=== PATIENT | male | born 1950 | race Caucasian/White ===

== ENCOUNTER → 2016-10-01 | Outpatient (REF) | payer MEDICARE ==
[~2016-10-01] MED LIST: AMLO5TAB2 PO; OMEP40CA2 PO; PARO-39 PO; PRAV40TA2 PO; PROS5TAB PO
== END ==
LOC: M LAB REF 11:48
DX: R74.8 Abnormal levels of other serum enzymes (principal); Z79.899 Other long term (current) drug therapy

== ENCOUNTER → 2016-10-02 | Outpatient (REF) | payer MEDICARE ==
[2016-10-02 13:53] LABS: FERRITIN 485 NG/ML (26-388); PERCENT SATURATION 45.5 % (19.7-37.4); TOTAL IRON BINDING CAPACITY 321 UG/DL (250-450); TOTAL PROTEIN 7.8 GM/DL (6.4-8.2)
[2016-10-05 12:57] LABS: ALBUMIN % 53.9 % (55.8-66.1)
[2016-10-05 12:58] LABS: GAMMA GLOBULIN % 22.8 % (11.1-18.8)
== END ==
LOC: M LAB REF 13:12
DX: R74.8 Abnormal levels of other serum enzymes (principal)

== ENCOUNTER → 2016-10-06 | Outpatient (REF) | payer MEDICARE | LOC: M LAB REF 16:48 | DX: R74.8 Abnormal levels of other serum enzymes (principal) ==

== ENCOUNTER → 2016-10-14 | Day surgery (SDC) | payer MEDICARE ==
--- NOTE | 2016-10-06 01:53 | CR ---
DATE OF CONSULTATION: 10/01/2016 REFERRING PHYSICIAN: Dr. Adrianna Leiva Marifer, a 66-year-old white male, scheduled for cataract surgery. I have been asked to evaluate him medically. He did not have any preoperative testing or EKG. Historically, he has mildly low platelet counts of about 100,000. He has had no bleeding disorders. There is no history of symptoms of coronary artery disease. He has no symptoms of known obstructive sleep apnea (AVE) or venous thromboembolism (VTE). His exercise tolerance is fair. He has gained some weight over the years. He does function at a level of greater than 4 metabolic equivalents of task (METs) without any symptoms. MEDICATIONS: He was begun on Norvasc 5 mg a day today. This was for elevated blood pressure. I believe he might be drinking again, which might be driving his blood pressure up. His other medications are: - Proscar 5 mg a day - pravastatin 40 mg a day - Paxil 20 mg a day - Prilosec 20 mg a day - Norvasc added today ALLERGIES: He has had an intolerance to a medication in the past for his blood pressure. The only medication I can see that he has been on in the past has been lisinopril with hydrochlorothiazide. He is vague about the symptoms associated with same. PAST MEDICAL HISTORY: 1. History of alcohol abuse in the past. 2. BPH. 3. Generalized anxiety disorder (VICKY). 4. Gastroesophageal reflux disease (GERD). 5. Hyperlipidemia. 6. Colonic polyps. 7. History of previous Alexandre's esophagitis. 8. He has had elevated liver function tests, but these have been historically recently normal until his last visit here. I am rechecking those, but this is not going to preclude surgery. With his history of elevated liver tests, I am doing a hepatitis C screen today. FAMILY HISTORY: Irrelevant. SOCIAL HISTORY: Alcohol issues, as above. We did not quantify it today. CARDIOPULMONARY REVIEW OF SYSTEMS: Is negative. PHYSICAL EXAM: Blood pressure is 160/85. GENERAL APPEARANCE: Moderately overweight. HEENT: Was noteworthy for the absence of carotid bruits. No jugular venous distention (JVD). HEART: Was regular. No murmurs. CHEST: Is clear. ABDOMEN: Mild central obesity. No hepatosplenomegaly (HSM). EXTREMITIES: No edema. No petechiae. IMPRESSION/PLAN: 1. Hypertension. Beginning Norvasc today. 2. Gastroesophageal reflux disease/history of Alexandre's. He is due to followup with Dr. Castro. He is supposed to give him a call. 3. Colonic polyps with tubular adenoma. Follows with Dr. Castro. 4. BPH. 5. Hyperlipidemia. 6. Generalized anxiety disorder. This is not as pervasive since he is retired. He used to work at the [employer]. He is medically optimized for the scheduled procedure.
[~2016-10-14] VITALS: Ht 180.3 cm; Wt 90.7 kg
[~2016-10-14] MED LIST changes: +ACETAMINOPHEN 325 MG TAB PO PRN; +AcetaZOLAMIDE 500 MG ER CAP PO ONE; +BSS with VANC/TOB/EPI for EYE CASES IR ONE; +CYCLOPENTOLATE 2% OPHTH SOLN OS ONE; +HEALON DUET (HEALON 10MG/ML 0.55ML & HEALON ENDOCOAT 30MG/ML 0.85ML) As Ordered ONE; +HEALON DUET (HEALON 10MG/ML 0.55ML & HEALON ENDOCOAT 30MG/ML 0.85ML) XX ONE; +KETOROLAC 0.5% OPHTH SOLN OS ONE; +LIDOCAINE 0.75%/EPINEPHRINE 0.025% IN BSS 1ML SYR INTRACAMERAL (OR ONLY) ICAM ONE; +LIDOCAINE 1% SDV 5 ML VIAL As Ordered ONE; +LIDOCAINE 1% SDV 5 ML VIAL XX ONE; +LIDOCAINE 1% SDV INJ 30 ML VIAL XX ONE; +LIDOCAINE 4% INJ 5 ML AMP OU ONE; +MIDAZOLAM INJ 2 MG/2 ML VIAL (J2250) As Ordered ONE; +MOXIFLOXACIN IN BSS 0.25MG/0.25ML INTRACAMERAL INJ (OR EYE ONLY)(J2280) As Ordered ONE; +MOXIFLOXACIN IN BSS 0.25MG/0.25ML INTRACAMERAL INJ (OR EYE ONLY)(J2280) ICAM ONE; +OFLOXACIN 0.3 % (OCUFLOX) OPTH SOL 5ML OS ONE; +PHENYLEPHRINE 2.5% OPHTH SOL 2ML OS ONE; +POVIDONE-IODINE 5% OPHTH PREP SOL 30ML As Ordered ONE; +PROPARACAINE 0.5% OPHTH SOL 15ML OS PRN; +TRIAMCINOLONE PRES FR 40 MG/ML 1ML(TRIESENCE)(OR EYE ONLY)(J3300 PER 1MG) As Ordered ONE; +TRIAMCINOLONE PRES FR 40 MG/ML 1ML(TRIESENCE)(OR EYE ONLY)(J3300 PER 1MG) IO ONE; +TRIMETHOBENZAMIDE 300 MG CAP PO PRN; +TROPICAMIDE 1% OPHTH SOLN 2 ML OS ONE; +fentaNYL 100 MCG/2 ML INJECTION (J3010) As Ordered ONE
--- NOTE | 2016-10-14 10:37 | RO ---
DATE OF PROCEDURE: 10/14/2016 PREPROCEDURE DIAGNOSIS: Cataract of left eye. POSTPROCEDURE DIAGNOSIS: Cataract of left eye. PROCEDURE: Femtosecond laser and phacoemulsification of the intraocular lens with lens implantation left eye. Intraocular lens power used was PCB00, 11.5 diopter. SURGEON: Deion Rodas MD AIRCRAFT SHEET METAL MECHANIC: None. ANESTHESIA: Local IV standby. FINDINGS: Cataract of left eye. COMPLICATIONS: None. DESCRIPTION OF PROCEDURE: The patient was brought to the operating room and laid in supine position. A lid speculum was placed, and patient was brought under the femtosecond laser. After the satisfactory placement of the patient interface, primary incision, secondary incision, and arcuate incisions with lens fragmentation was done without any complication per plan. The patients interface was then removed and lid speculum removed. Patient was placed under the microscope. The eye was prepped and draped in a sterile fashion for ophthalmic surgery. Lid speculum was placed. The secondary incision was opened, and EndoCoat was injected into the anterior chamber. The temporal clear corneal incision was then opened and capsulorrhexis removed, followed by hydrodissection. This was followed by phacoemulsification of the lens within the capsular bag. Cortical material was then aspirated, and Healon was injected into the capsular bag. Intraocular lens was then placed. Excess Healon was aspirated. Wound was hydrated. The lid speculum was removed, and patient was returned to the recovery room in stable condition.
[2016-10-14 11:00] VITALS: BP 177/107
== END | disposition home or self-care (01) ==
LOC: M SDC 07:16
PROVIDERS: ATTEND Ophthalmology
DX: H26.9 Unspecified cataract (principal); F10.21 Alcohol dependence, in remission; N40.0 Benign prostatic hyperplasia without lower urinary tract symptoms; F41.9 Anxiety disorder, unspecified; L21.9 Seborrheic dermatitis, unspecified; E78.5 Hyperlipidemia, unspecified; K63.5 Polyp of colon; R94.5 Abnormal results of liver function studies; I10 Essential (primary) hypertension; Z87.19 Personal history of other diseases of the digestive system; Z79.899 Other long term (current) drug therapy
CPT/HCPCS: 66984; J2250; J2280; J3010; J3300; V2632

== ENCOUNTER → 2016-12-28 | Outpatient (CLI) | payer MEDICARE ==
[~2016-12-28] VITALS: Ht 180.3 cm; Wt 90.7 kg
[~2016-12-28] MED LIST changes: -ACETAMINOPHEN 325 MG TAB PO PRN; -AcetaZOLAMIDE 500 MG ER CAP PO ONE; -BSS with VANC/TOB/EPI for EYE CASES IR ONE; -CYCLOPENTOLATE 2% OPHTH SOLN OS ONE; -HEALON DUET (HEALON 10MG/ML 0.55ML & HEALON ENDOCOAT 30MG/ML 0.85ML) As Ordered ONE; -HEALON DUET (HEALON 10MG/ML 0.55ML & HEALON ENDOCOAT 30MG/ML 0.85ML) XX ONE; -KETOROLAC 0.5% OPHTH SOLN OS ONE; -LIDOCAINE 0.75%/EPINEPHRINE 0.025% IN BSS 1ML SYR INTRACAMERAL (OR ONLY) ICAM ONE; -LIDOCAINE 1% SDV 5 ML VIAL As Ordered ONE; -LIDOCAINE 1% SDV 5 ML VIAL XX ONE; -LIDOCAINE 1% SDV INJ 30 ML VIAL XX ONE; -LIDOCAINE 4% INJ 5 ML AMP OU ONE; -MIDAZOLAM INJ 2 MG/2 ML VIAL (J2250) As Ordered ONE; -MOXIFLOXACIN IN BSS 0.25MG/0.25ML INTRACAMERAL INJ (OR EYE ONLY)(J2280) As Ordered ONE; -MOXIFLOXACIN IN BSS 0.25MG/0.25ML INTRACAMERAL INJ (OR EYE ONLY)(J2280) ICAM ONE; +MULT1CHW39 PO; +NS 1,000 ML IV SCH; -OFLOXACIN 0.3 % (OCUFLOX) OPTH SOL 5ML OS ONE; -PHENYLEPHRINE 2.5% OPHTH SOL 2ML OS ONE; -POVIDONE-IODINE 5% OPHTH PREP SOL 30ML As Ordered ONE; -PROPARACAINE 0.5% OPHTH SOL 15ML OS PRN; +PROPOFOL 200 MG/20 ML VIAL As Ordered ONE; -TRIAMCINOLONE PRES FR 40 MG/ML 1ML(TRIESENCE)(OR EYE ONLY)(J3300 PER 1MG) As Ordered ONE; -TRIAMCINOLONE PRES FR 40 MG/ML 1ML(TRIESENCE)(OR EYE ONLY)(J3300 PER 1MG) IO ONE; -TRIMETHOBENZAMIDE 300 MG CAP PO PRN; -TROPICAMIDE 1% OPHTH SOLN 2 ML OS ONE; -fentaNYL 100 MCG/2 ML INJECTION (J3010) As Ordered ONE
--- NOTE | 2016-12-28 12:41 | ROOR ---
Patient Name: Cali Caicedo Procedure Date: 12/28/2016 12:20 PM Date of : 1950 Age: 66 Room: [facility] Gender: Male Note Status: Finalized Procedure: Colonoscopy to Cecum + Cold Snare Polypectomy + Hemocliop Indications: Screening in patient at increased risk: Colorectal cancer in mother 60 or older, High risk colon cancer surveillance: Personal history of colonic polyps Providers: Jose Castro MD Referring MD: Devon Jacques MD Requesting Provider: Medicines: Monitored Anesthesia Care Complications: No immediate complications. Procedure: Pre-Anesthesia Assessment: - The heart rate, respiratory rate, oxygen saturations, blood pressure, adequacy of pulmonary ventilation, and response to care were monitored throughout the procedure. The Colonoscope was introduced through the anus and advanced to the cecum, identified by appendiceal orifice and ileocecal valve. The colonoscopy was performed without difficulty. The patient tolerated the procedure well. The quality of the bowel preparation was fair. Findings: The perianal and digital rectal examinations were normal. Non-bleeding internal hemorrhoids were found during retroflexion. The hemorrhoids were small and Grade I (internal hemorrhoids that do not prolapse). Scattered small-mouthed diverticula were found in the recto-sigmoid colon, sigmoid colon and descending colon. A small polyp was found in the mid ascending colon. The polyp was sessile. The polyp was removed with a cold snare. Resection and retrieval were complete. To prevent bleeding after the polypectomy, one hemostatic clip was successfully placed (MR conditional). There was no bleeding at the end of the procedure. The exam was otherwise without abnormality on direct and retroflexion views. Impression: - Preparation of the colon was fair. - Non-bleeding internal hemorrhoids. - Diverticulosis in the recto-sigmoid colon, in the sigmoid colon and in the descending colon. - One small polyp in the mid ascending colon, removed with a cold snare. Resected and retrieved. Clip (MR conditional) was placed. - The examination was otherwise normal on direct and retroflexion views. - The exam was otherwise normal to the cecum. Recommendation: - Patient has a contact number available for emergencies. The signs and symptoms of potential delayed complications were discussed with the patient. Return to normal activities tomorrow. Written discharge instructions were provided to the patient. - High fiber diet. - Discharge patient to home. - Continue present medications. - Await pathology results. - Repeat colonoscopy for surveillance based on pathology results. - Check Portal Online for Path Results.([email or web address] - The findings and recommendations were discussed with the patient's family. Jose Castro MD Jose Castro MD 12/28/2016 12:41:30 PM This report has been signed electronically. Number of Addenda: 0 Note Initiated On: 12/28/2016 12:20 PM Estimated Blood Loss: Estimated blood loss: none.
[2016-12-28 13:05] VITALS: BP 149/88
== END ==
LOC: M OPP 11:45
PROVIDERS: ATTEND Internal Medicine Gastroenterology
DX: Z12.31 Encounter for screening mammogram for malignant neoplasm of breast (principal); Z80.0 Family history of malignant neoplasm of digestive organs; D12.2 Benign neoplasm of ascending colon; K64.0 First degree hemorrhoids; K57.30 Diverticulosis of large intestine without perforation or abscess without bleeding; I10 Essential (primary) hypertension; E78.00 Pure hypercholesterolemia, unspecified; R12 Heartburn; F33.9 Major depressive disorder, recurrent, unspecified; Z79.899 Other long term (current) drug therapy; Z87.891 Personal history of nicotine dependence

== ENCOUNTER → 2017-12-30 | Outpatient (REF) | payer MEDICARE ==
[2017-12-30 13:28] LABS: AMMONIA 33 uMOL/L (<32)
[2017-12-30 13:39] LABS: TOTAL PROTEIN 9.5 GM/DL (6.4-8.2)
[2017-12-30 13:39] LABS: GAMMA GLUTAMYLTRANSPEPTIDASE 365 U/L (15-85)
[2018-01-01 00:07] LABS: ANTI-MITOCHONDRIAL ANTIBODY 5.1 Units (0.0-20.0)
[2018-01-05 09:21] LABS: ALBUMIN 4.09 GM/DL (3.29-5.55); ALBUMIN % 43.1 % (55.8-66.1); ALPHA-1-GLOBULINS 0.38 GM/DL (0.17-0.41); ALPHA-2-GLOBULINS 0.66 GM/DL (0.42-0.99); ALPHA-2-GLOBULINS % 6.9 % (7.1-11.8); BETA-1-GLOBULINS 0.58 GM/DL (0.28-0.60); BETA-1-GLOBULINS % 6.1 % (4.7-7.2); BETA-2-GLOBULINS 0.57 GM/DL (0.19-0.55); GAMMA GLOBULIN % 33.9 % (11.1-18.8)
[2018-01-05 09:22] LABS: GAMMA GLOBULINS 3.22 GM/DL (0.65-1.58)
[2018-01-05 10:10] LABS: IMMUNOTYPING SERUM IGG ABNORMAL (NORMAL); IMMUNOTYPING SERUM KAPPA ABNORMAL (NORMAL)
== END ==
LOC: M LAB REF 12:26
DX: R74.8 Abnormal levels of other serum enzymes (principal); R79.89 Other specified abnormal findings of blood chemistry
CPT/HCPCS: 82140

== ENCOUNTER → 2018-02-10 | Outpatient (REF) | payer MEDICARE ==
[2018-02-10 15:25] LABS: GAMMA GLUTAMYLTRANSPEPTIDASE 185 U/L (15-85)
[2018-02-10 15:25] LABS: FERRITIN 90 NG/ML (26-388)
[2018-02-10 15:27] LABS: AMMONIA 45 uMOL/L (<32)
[2018-02-11 10:47] LABS: ALPHA FETOPROTEIN TUMOR QUANT 5.6 NG/ML (<8.1)
== END ==
LOC: M LAB REF 13:59
DX: R74.8 Abnormal levels of other serum enzymes (principal); K70.31 Alcoholic cirrhosis of liver with ascites
CPT/HCPCS: 82140

== ENCOUNTER → 2018-05-02 | Outpatient (REF) | payer MEDICARE ==
[2018-05-02 19:46] LABS: SLIDE REVIEW Report; SOURCE PERIPHERAL SMEAR
[2018-05-02 20:09] LABS: IMMUNOGLOBULIN G 2550 MG/DL (681-1648); IMMUNOGLOBULIN M 337 MG/DL (40-230); TOTAL PROTEIN 9.2 GM/DL (6.4-8.2)
[2018-05-03 14:39] LABS: ALBUMIN 4.27 GM/DL (3.29-5.55); ALBUMIN % 46.4 % (55.8-66.1); ALPHA-1-GLOBULINS 0.37 GM/DL (0.17-0.41); ALPHA-2-GLOBULINS % 6.5 % (7.1-11.8); BETA-1-GLOBULINS 0.56 GM/DL (0.28-0.60); BETA-1-GLOBULINS % 6.1 % (4.7-7.2); BETA-2-GLOBULINS 0.53 GM/DL (0.19-0.55); BETA-2-GLOBULINS % 5.8 % (3.2-6.5); GAMMA GLOBULIN % 31.2 % (11.1-18.8); GAMMA GLOBULINS 2.87 GM/DL (0.65-1.58)
[2018-05-04 14:25] LABS: FREE KAPPA LIGHT CHAINS SERUM 80.1 mg/L (3.3-19.4); FREE LAMBDA LIGHT CHAINS SERUM 47.7 mg/L (5.7-26.3); KAPPA/LAMBDA RATIO SERUM 1.68 (0.26-1.65)
== END ==
LOC: M LAB REF 18:15
DX: R79.9 Abnormal finding of blood chemistry, unspecified (principal); D69.6 Thrombocytopenia, unspecified; D72.819 Decreased white blood cell count, unspecified; Z87.19 Personal history of other diseases of the digestive system; Z86.79 Personal history of other diseases of the circulatory system
CPT/HCPCS: 84165

== ENCOUNTER → 2018-05-03 | Outpatient (CLI) | payer MEDICARE | LOC: M RAD 10:40 | DX: D47.2 Monoclonal gammopathy (principal) | CPT/HCPCS: 77075 ==

== ENCOUNTER 2018-05-25 12:02 | Day surgery (SDC) | payer MEDICARE ==
[~2018-05-25 12:02] MED LIST changes: -AMLO5TAB2 PO; +LIDOCAINE 2% INJ 100 MG/5 ML SDV (FOR ANES.) As Ordered; -MULT1CHW39 PO; -NS 1,000 ML IV SCH; -OMEP40CA2 PO; -PARO-39 PO; -PRAV40TA2 PO; +PROPOFOL 200 MG/20 ML VIAL As Ordered; -PROPOFOL 200 MG/20 ML VIAL As Ordered ONE; -PROS5TAB PO; +fentaNYL 100 MCG/2 ML INJECTION (J3010) As Ordered
[2018-05-25] MEDS: NS 1,000 ML IV (12:15)
== END 2018-05-25 13:58 | disposition home or self-care (01) ==
LOC: M OPP 12:02
DX: R93.3 Abnormal findings on diagnostic imaging of other parts of digestive tract (principal); D12.2 Benign neoplasm of ascending colon; D12.4 Benign neoplasm of descending colon; D12.5 Benign neoplasm of sigmoid colon; K64.0 First degree hemorrhoids; K57.30 Diverticulosis of large intestine without perforation or abscess without bleeding; K70.31 Alcoholic cirrhosis of liver with ascites; K76.6 Portal hypertension; I85.00 Esophageal varices without bleeding; K31.89 Other diseases of stomach and duodenum; R63.4 Abnormal weight loss; I10 Essential (primary) hypertension; E78.5 Hyperlipidemia, unspecified; K21.9 Gastro-esophageal reflux disease without esophagitis; R12 Heartburn; K22.70 Barrett's esophagus without dysplasia; M19.90 Unspecified osteoarthritis, unspecified site; F32.9 Major depressive disorder, single episode, unspecified; N40.1 Benign prostatic hyperplasia with lower urinary tract symptoms; Z79.899 Other long term (current) drug therapy; Z87.891 Personal history of nicotine dependence; Z80.0 Family history of malignant neoplasm of digestive organs
CPT/HCPCS: 45385

== ENCOUNTER → 2018-06-09 | Outpatient (REF) | payer MEDICARE ==
[2018-06-09 18:01] LABS: AMMONIA 21 uMOL/L (<32)
== END ==
LOC: M LAB REF 16:39
DX: K74.60 Unspecified cirrhosis of liver (principal)
CPT/HCPCS: 82140

== ENCOUNTER → 2018-08-02 | Outpatient (REF) | payer MEDICARE ==
[2018-08-02 12:51] LABS: GAMMA GLUTAMYLTRANSPEPTIDASE 111 U/L (15-85)
[2018-08-02 12:58] LABS: AMMONIA 18 uMOL/L (<32)
== END ==
LOC: M LAB REF 12:01
DX: K74.60 Unspecified cirrhosis of liver (principal); D69.6 Thrombocytopenia, unspecified
CPT/HCPCS: 82140

== ENCOUNTER 2018-08-24 08:30 | Day surgery (SDC) | payer MEDICARE ==
[~2018-08-24] VITALS: Ht 180.3 cm; Wt 82.3 kg
[~2018-08-24 08:30] MED LIST changes: +ACETAMINOPHEN 325 MG TAB PO PRN; +AMLO5TAB4 PO; +BSS with VANC/TOB/EPI for EYE CASES IR ONE; +CYCLOPENTOLATE 2% OPHTH SOLN 2ML BTL OD ONE; +FURO20TA2 PO; +HEALON DUET PRO(HEALON 10MG/ML 0.55ML & HEALON ENDOCOAT 30MG/ML 0.85ML) As Ordered ONE; +LIDOCAINE 1% SDV 5 ML VIAL As Ordered ONE; -LIDOCAINE 2% INJ 100 MG/5 ML SDV (FOR ANES.) As Ordered; +LIDOCAINE 3.5 % 1ML OPHTH TOPICAL GEL OU ONE; +MIDAZOLAM INJ 2 MG/2 ML VIAL (J2250) As Ordered ONE; +MOXIFLOXACIN IN BSS 0.25MG/0.25ML INTRACAMERAL INJ (OR EYE ONLY)(J2280) As Ordered ONE; +MULT1CHW39 PO; +OFLOXACIN 0.3 % (OCUFLOX) OPTH SOL 5ML OD ONE; +OMEP40CA2 PO; +PARO20TA4 PO; +PHENYLEPHRINE 2.5% OPHTH SOL 2ML OD ONE; +PHENYLEPHRINE HCL 10 % OPHTH. SOL 5ML OD PRN; +POVIDONE-IODINE 5% OPHTH PREP SOL 30ML As Ordered ONE; +PRAV40TA2 PO; -PROPOFOL 200 MG/20 ML VIAL As Ordered; +PROS5TAB PO; +TRIAMCINOLONE PRES FR 40 MG/ML 1ML(TRIESENCE)(OR EYE ONLY)(J3300 PER 1MG) As Ordered ONE; +TROPICAMIDE 1% OPHTH SOLN 2ML OD ONE; -fentaNYL 100 MCG/2 ML INJECTION (J3010) As Ordered; +fentaNYL 100 MCG/2 ML INJECTION (J3010) As Ordered ONE
[2018-08-24] MEDS ORDERED: LIDOCAINE 2% W/EPIN INJ 20ML **PRES FREE XX ONE (11:04)
[2018-08-24] MEDS ORDERED: TRIMETHOBENZAMIDE 300 MG CAP PO PRN (11:30)
[2018-08-24] MEDS ORDERED: ONDANSETRON 4MG/2ML VIAL (J2405) IV PRN (11:30)
[2018-08-24] MEDS ORDERED: AcetaZOLAMIDE 500 MG ER CAP PO ONE (11:30)
[2018-08-24 11:35] VITALS: BP 130/68
--- NOTE | 2018-09-20 16:25 | RO ---
DATE OF PROCEDURE: 08/24/2018 PREPROCEDURE DIAGNOSIS: Cataract of right eye. POSTPROCEDURE DIAGNOSIS: Cataract of right eye. PROCEDURE: Femtosecond laser with phacoemulsification and intraocular lens implantation of AU00T0, 11 diopter with the help of the ORA. SURGEON: Deion Rodas MD MEDIA TRAFFIC MANAGER: None. ANESTHESIA: Local IV standby. FINDINGS: Cataract of right eye. COMPLICATIONS: None. DESCRIPTION OF PROCEDURE: The patient was brought to the operating room and laid in supine position. A lid speculum was placed, and patient was brought under the femtosecond laser. After the satisfactory placement of the patient interface, primary incision, secondary incision, and arcuate incisions with lens fragmentation was done without any complication per plan. The patients interface was then removed and lid speculum removed. Patient was placed under the microscope. The eye was prepped and draped in a sterile fashion for ophthalmic surgery. Lid speculum was placed. The secondary incision was opened, and EndoCoat was injected into the anterior chamber. The temporal clear corneal incision was then opened and capsulorrhexis removed, followed by hydrodissection. This was followed by phacoemulsification of the lens within the capsular bag. Cortical material was then aspirated, and Healon was injected into the capsular bag. Intraocular lens was then placed. Excess Healon was aspirated. Wound was hydrated. The lid speculum was removed, and patient was returned to the recovery room in stable condition. ADDENDUM: After the cortical material was aspirated, Healon was placed in the capsular bag and the anterior chamber. Intraocular pressure was checked. Multiple ORA calculations were then reviewed and intraocular power checked.
== END 2018-08-24 11:42 | disposition home or self-care (01) ==
LOC: M SDC 08:30
PROVIDERS: ATTEND Ophthalmology
DX: H25.011 Cortical age-related cataract, right eye (principal); I10 Essential (primary) hypertension; E78.00 Pure hypercholesterolemia, unspecified; K76.0 Fatty (change of) liver, not elsewhere classified; K74.60 Unspecified cirrhosis of liver; K21.9 Gastro-esophageal reflux disease without esophagitis; D69.6 Thrombocytopenia, unspecified; E07.9 Disorder of thyroid, unspecified; K42.9 Umbilical hernia without obstruction or gangrene; M12.9 Arthropathy, unspecified; F41.1 Generalized anxiety disorder; F32.9 Major depressive disorder, single episode, unspecified; N40.0 Benign prostatic hyperplasia without lower urinary tract symptoms; F12.90 Cannabis use, unspecified, uncomplicated; Z79.899 Other long term (current) drug therapy; Z98.42 Cataract extraction status, left eye; Z86.010 Personal history of colon polyps
CPT/HCPCS: 66984; J2250; J2280; J3010; J3300; V2632

== ENCOUNTER → 2018-09-19 | Outpatient (CLI) | payer MEDICARE ==
[~2018-09-19] MED LIST changes: -ACETAMINOPHEN 325 MG TAB PO PRN; -AMLO5TAB4 PO; +AMLO5TAB6 PO; -BSS with VANC/TOB/EPI for EYE CASES IR ONE; -CYCLOPENTOLATE 2% OPHTH SOLN 2ML BTL OD ONE; -HEALON DUET PRO(HEALON 10MG/ML 0.55ML & HEALON ENDOCOAT 30MG/ML 0.85ML) As Ordered ONE; -LIDOCAINE 1% SDV 5 ML VIAL As Ordered ONE; -LIDOCAINE 3.5 % 1ML OPHTH TOPICAL GEL OU ONE; -MIDAZOLAM INJ 2 MG/2 ML VIAL (J2250) As Ordered ONE; -MOXIFLOXACIN IN BSS 0.25MG/0.25ML INTRACAMERAL INJ (OR EYE ONLY)(J2280) As Ordered ONE; -OFLOXACIN 0.3 % (OCUFLOX) OPTH SOL 5ML OD ONE; -PHENYLEPHRINE 2.5% OPHTH SOL 2ML OD ONE; -PHENYLEPHRINE HCL 10 % OPHTH. SOL 5ML OD PRN; -POVIDONE-IODINE 5% OPHTH PREP SOL 30ML As Ordered ONE; -TRIAMCINOLONE PRES FR 40 MG/ML 1ML(TRIESENCE)(OR EYE ONLY)(J3300 PER 1MG) As Ordered ONE; -TROPICAMIDE 1% OPHTH SOLN 2ML OD ONE; -fentaNYL 100 MCG/2 ML INJECTION (J3010) As Ordered ONE
--- NOTE | 2018-09-19 08:24 | REP ---
Complete abdominal sonography: History: Hernia and ascites. Attention to spleen and liver. Comparison CT study February 14, 2018. Findings: Scanning through the right upper quadrant of the abdomen demonstrates multiple mobile shadowing gallstones in the gallbladder. Gallbladder wall is not felt to be thickened. Common bile duct is normal measuring 0.5 cm in greatest diameter. Portal vein is dilated to 18 mm. The liver is somewhat enlarged with craniocaudal dimension of 18.6 cm. No focal liver lesion is seen. There is minimal ascites around the liver in the right abdomen. This is much improved from February 14, 2018 CT study. The spleen is enlarged moderately measuring 16.3 cm in greatest diameter. No focal splenic lesion is seen. There is no evidence of hydronephrosis on either side. Renal cortical echogenicity pattern is normal. Right kidney measures 12.3 x 6.5 x 5.4 cm. Left renal dimensions are 12.4 x 6.7 x 5.0 cm. Impression: Hepatosplenomegaly. Minimal right-sided ascites. Cholelithiasis. Dilated portal vein. Electronically Signed by Kamar Knight MD 09/19/2018 10:55 A
== END ==
LOC: M RAD 06:05
PROVIDERS: ATTEND Internal Medicine Hematology & Oncology
DX: R18.8 Other ascites (principal)

== ENCOUNTER → 2018-12-19 | Outpatient (REF) | payer MEDICARE ==
[~2018-12-19] MED LIST changes: -MULT1CHW39 PO; +MULT200T7 PO
== END ==
LOC: M LAB REF 12:26
PROVIDERS: ATTEND Family Medicine
DX: K74.60 Unspecified cirrhosis of liver (principal); D69.6 Thrombocytopenia, unspecified

== ENCOUNTER 2019-01-10 10:24 | Day surgery (SDC) | payer MEDICARE ==
[~2019-01-10] VITALS: Ht 177.8 cm; Wt 84.8 kg
[~2019-01-10 10:24] MED LIST changes: +LR 1,000 ML IV ONE
[2019-01-10] MEDS ORDERED: ROCURONIUM BROMIDE 50 MG/5 ML VIAL As Ordered ONE (10:43)
[2019-01-10] MEDS ORDERED: fentaNYL 250 MCG/5 ML INJECTION (J3010) As Ordered ONE (10:43)
[2019-01-10] MEDS ORDERED: MIDAZOLAM INJ 2 MG/2 ML VIAL (J2250) As Ordered ONE (10:43)
[2019-01-10] MEDS ORDERED: LIDOCAINE 2% INJ 100 MG/5 ML SDV (FOR ANES.) As Ordered ONE (10:43)
[2019-01-10] MEDS ORDERED: PROPOFOL 200 MG/20 ML VIAL As Ordered ONE (10:43)
[2019-01-10] MEDS ORDERED: BUPIVACAINE HCL 0.25% 30 ML VIAL As Ordered ONE (14:36)
[2019-01-10] MEDS ORDERED: CISATRACURIUM 2MG/ML 5ML VIAL As Ordered ONE ×2 (14:39→16:00)
[2019-01-10] MEDS ORDERED: BUPIVACAINE LIPOSOME/PF 1.3% 20ML VIAL (13.3MG/ML)(EXPAREL)(C9290 PER1MG) As Ordered ONE (16:26)
[2019-01-10] MEDS ORDERED: GLYCOPYRROLATE INJ 0.2 MG/ML 2 ML VIAL As Ordered ONE (16:39)
[2019-01-10] MEDS ORDERED: NEOSTIGMINE 10 MG/10 ML VIAL (J2710) As Ordered ONE (16:39)
[2019-01-10] MEDS ORDERED: dexameTHASONE 4 MG/ML 1ML VIAL (J1100) As Ordered ONE (16:39)
[2019-01-10] MEDS ORDERED: ONDANSETRON 4MG/2ML VIAL (J2405) As Ordered ONE (16:39)
[2019-01-10] MEDS ORDERED: KETOROLAC 60 MG/2 ML VIAL (J1885) As Ordered ONE (16:40)
[2019-01-10] MEDS ORDERED: PERCOCET 5MG/325MG TAB As Ordered ONE (17:34)
[2019-01-10 17:35] LABS: INR 1.03; PROTHROMBIN TIME 13.6 SECONDS (12.1-14.4)
[2019-01-10] MEDS ORDERED: LR 1,000 ML IV SCH (18:15)
[2019-01-10] MEDS ORDERED: ACETAMINOPHEN TAB 650MG DOSE (2X325MG) PO PRN (18:15)
[2019-01-10] MEDS ORDERED: NORCO, ANEXSIA 5/325MG TABLET (HYDROcodone/ACETAMINOPHEN) PO PRN (18:15)
[2019-01-10] MEDS ORDERED: ONDANSETRON 4MG/2ML VIAL (J2405) IV PRN (18:15)
[2019-01-10] MEDS ORDERED: fentaNYL 100 MCG/2 ML INJECTION (J3010) IV PRN (18:15)
[2019-01-10] MEDS ORDERED: PERCOCET 5MG/325MG TAB PO PRN (18:15)
[2019-01-10] MEDS ORDERED: METOCLOPRAMIDE INJ 10MG/2ML VIAL (J2765) IV PRN (18:15)
[2019-01-10 19:45] VITALS: BP 147/75
--- NOTE | 2019-01-12 11:15 | RO ---
DATE OF PROCEDURE: 01/10/2019 PREOPERATIVE DIAGNOSIS: Umbilical hernia with history of cirrhosis and ascites. POSTOPERATIVE DIAGNOSIS: Umbilical hernia with history of cirrhosis and ascites. PROCEDURE: Laparoscopic umbilical hernia repair with omphaloplasty. SURGEON: Dr. Efrain Squires SEMICONDUCTOR PACKAGES SEALER: Dr. Shaikh who was needed for assistance in management of the laparoscope, particularly during manipulation of the umbilical defect and placement of the mesh. ANESTHESIA: General. INDICATIONS FOR PROCEDURE: The patient is a 68-year-old man who had developed a very prominent and protruding umbilical hernia. He was found to have significant ascites which led to further workup leading to a diagnosis of cirrhosis. He was treated with some diuretics over a several month period and his ascites seemed to resolve. He continued with a somewhat low platelet count and some mild coagulation abnormalities. His hernia persists, but is somewhat less prominent but he is now for a laparoscopic repair of his umbilical hernia. OPERATIVE PROCEDURE: The patient received 2 units of fresh frozen plasma and two transfusions of single donor platelet packs. He was brought to the operating room and placed on the table in a supine position. He was placed under general endotracheal anesthesia. The patient's abdomen was prepped and draped in a sterile fashion. Examination revealed a large proboscis-like hernias hernia sac that was perhaps 5 cm in diameter. Palpation revealed a fascial defect perhaps 2 cm in diameter. A skin marker was used to outline a transversely oriented crescentic portion of the skin at the lower aspect of the umbilicus that could be excised to eliminate much of the redundant skin. A site was selected for entry into the abdomen in the right lateral abdomen. 0.25% Marcaine was infiltrated and a small incision was made. A Veress needle was inserted and after positive hanging drop test the abdomen was inflated with carbon dioxide gas. A 5 mm port was placed over a 5 mm scope and this was advanced through the abdominal wall without difficulty. Initial examination showed a band of omentum adherent to the superior aspect of the umbilical fascial defect. There was no evidence of Veress needle or trocar injury in the right side of the abdomen. The liver was well seen and appeared somewhat nodular, but this was not dramatic. There did not appear to be any significant ascites within the abdomen. In fact, I would say that there was no definite free fluid seen. A second 5 mm trocar was placed approximately 10 cm higher up in the right side of the abdomen. Through this, a harmonic scalpel was inserted in the attachments of the omentum to the edge of the umbilical fascial defect were divided with care to ensure hemostasis. After completing this step, the redundant skin at the inferior aspect of the umbilicus was incised. Dissection was carried into the subcutaneous tissues and the hernia sac was opened using the cautery. The excised portion of skin with portions of the attached hernia sac was sent as hernia sac. Portions of the hernia sac were excised to better expose the edges of the fascial defect. The peritoneum was freed around the edges of the wound. The peritoneum was then partially closed with interrupted sutures of 3-0 chromic. A 9 cm Parietex patch was selected. This was item number [id number] and lot number [id number]. This was moistened. This was marked along the midline with a marker. A 1-0 Ethibond suture was placed at the midpoint of the fascial defect to close the fascial defect transversely. With this stitch, a small bite was taken of the Parietex patch. The patch was then reduced into the abdomen. The suture was tied down, fixing the patch over the center of the closure. The rest of the fascial defect was likewise closed with interrupted simple sutures of 1-0 Ethibond. The wound was filled with saline moistened gauze. The abdomen was then reinflated to a pressure of 8 mmHg. The laparoscope was inserted. Using first a grasper, the mesh was spread out over the anterior abdominal wall. A Secure Strap tacker was used to tack first the four corners of the mesh to splay the mesh over the center of the abdomen and then additional tacks were placed around the entire periphery of mesh and then more centrally. A second tacker was used, using a total of perhaps [address] the mesh. There was one small point where one of the tacking sites showed some bleeding, but with gentle pressure over the site this stopped within a brief period. The mesh appeared to be nicely placed over the anterior abdominal wall and securely fixed. 20 mL of Exparel were mixed with 20 mL of 0.25% Marcaine and this was infiltrated widely around the umbilical incision. Small amounts were infiltrated at the two trocar sites on the right. After ensuring hemostasis, the abdomen was deflated and the two remaining trocars were removed. The umbilical skin that remained was tacked down to the underlying fascia with several sutures of 3-0 Vicryl to recreate an umbilical dimple. The skin edges were then brought into apposition and with some multiple interrupted simple buried sutures of 3-0 Vicryl. The edges were then approximated with a running subcuticular 4-0 Vicryl. The trocar sites were closed with buried Vicryl as well. Light dressings were applied. The patient tolerated the procedure well without apparent complication. He was awakened in the operating room, extubated and moved to the recovery room in stable condition.
== END 2019-01-10 20:00 | disposition home or self-care (01) ==
LOC: M SDC 10:24
PROVIDERS: ATTEND Surgery
DX: K42.9 Umbilical hernia without obstruction or gangrene (principal); I10 Essential (primary) hypertension; N40.0 Benign prostatic hyperplasia without lower urinary tract symptoms; K22.70 Barrett's esophagus without dysplasia; K21.9 Gastro-esophageal reflux disease without esophagitis; D47.2 Monoclonal gammopathy; E78.00 Pure hypercholesterolemia, unspecified; K76.0 Fatty (change of) liver, not elsewhere classified; D69.6 Thrombocytopenia, unspecified; M12.9 Arthropathy, unspecified; F41.9 Anxiety disorder, unspecified; F32.9 Major depressive disorder, single episode, unspecified; Z91.018 Allergy to other foods; Z79.899 Other long term (current) drug therapy; Z87.19 Personal history of other diseases of the digestive system; Z87.81 Personal history of (healed) traumatic fracture; Z96.1 Presence of intraocular lens; Z98.41 Cataract extraction status, right eye; Z98.42 Cataract extraction status, left eye

== ENCOUNTER 2019-01-12 02:42 | Observation (INO) | payer MEDICARE ==
[~2019-01-12] VITALS: Ht 177.8 cm; Wt 88.6 kg
[~2019-01-12 02:42] MED LIST changes: -LR 1,000 ML IV ONE
[2019-01-12] MEDS ORDERED: FURO20TA2 PO (02:50)
[2019-01-12 03:29] LABS: BASO % 0.2 % (0.0-1.0); EOS # 0.1 10^3/uL (0.0-0.50); EOS % 0.8 % (0.0-3.0); HEMATOCRIT 30.2 % (42.0-52.0); HEMOGLOBIN 9.9 g/dl (13.5-17.5); LYMPH # 2.5 10^3/uL (1.5-4.5); LYMPH % 28.9 % (24.0-44.0); MEAN CORPUSCULAR HEMOGLOBIN 30.6 pg (27.0-33.0); MEAN CORPUSCULAR HGB CONC 32.8 g/dl (32.0-36.5); MEAN CORPUSCULAR VOLUME 93.2 fl (80.0-96.0); MONO % 11.6 % (0.0-5.0); RED BLOOD COUNT 3.24 10^6/uL (4.30-6.10); WHITE BLOOD COUNT 8.6 10^3/uL (4.0-10.0)
[2019-01-12 03:52] LABS: ALBUMIN 3.5 GM/DL (3.2-5.2); ALT/SGPT 21 U/L (12-78); BILIRUBIN,TOTAL 0.9 MG/DL (0.2-1.0); BLOOD UREA NITROGEN 17 MG/DL (7-18); CALCIUM LEVEL 8.3 MG/DL (8.8-10.2); CARBON DIOXIDE LEVEL 30 MEQ/L (21-32); CHLORIDE LEVEL 103 MEQ/L (98-107); CREATININE FOR GFR 0.85 MG/DL (0.70-1.30); GLOMERULAR FILTRATION RATE > 60.0 (>42); GLUCOSE, FASTING 135 MG/DL (70-100); POTASSIUM SERUM 3.7 MEQ/L (3.5-5.1); SODIUM LEVEL 139 MEQ/L (136-145); TOTAL PROTEIN 7.4 GM/DL (6.4-8.2)
[2019-01-12] MEDS ORDERED: ISOVUE-370 76% 100ML VIAL (Q9967) As Ordered ONE (04:09)
[2019-01-12 04:21] LABS: INR 1.12; PROTHROMBIN TIME 14.6 SECONDS (12.1-14.4)
[2019-01-12 04:25] LABS: PLATELET COUNT, AUTOMATED 73 10^3/uL (150-450)
--- NOTE | 2019-01-12 05:42 | REPVR ---
EXAM: CT Abdomen and Pelvis With Contrast EXAM DATE/TIME: 01/12/2019 4:05 AM CLINICAL HISTORY: 68 years old, male; Signs and symptoms; Other: Post op bleeding; Prior surgery; Surgery date: Post-operative (0-2 days); Surgery type: Lap hernia repair; Additional info: Post operative bleeding TECHNIQUE: Imaging protocol: Axial computed tomography images of the abdomen and pelvis with intravenous contrast. Coronal and sagittal reformatted images were created and reviewed. Radiation optimization: All CT scans at this facility use at least one of these dose optimization techniques: automated exposure control; mA and/or kV adjustment per patient size (includes targeted exams where dose is matched to clinical indication); or iterative reconstruction. Contrast material: ISO; Contrast volume: 100 ml; Contrast route: AC; COMPARISON: ABD COMPLETE US 09/19/2018 6:42 AM FINDINGS: Lungs: Slight bibasilar interstitial prominence with minimal fibro-atelectatic change greatest in the right lower lobe. ABDOMEN: Liver: Normal. No mass. Gallbladder and bile ducts: There are a few gallstones and sludge in the gallbladder. Pancreas: Normal. No ductal dilation. Spleen: Normal. No splenomegaly. Adrenals: Normal. No mass. Kidneys and ureters: Normal. No hydronephrosis. Stomach and bowel: There is colonic diverticulosis without evidence of diverticulitis. Appendix: A normal appendix is seen. PELVIS: Bladder: Unremarkable as visualized. Reproductive: Unremarkable as visualized. ABDOMEN and PELVIS: Intraperitoneal space: Minimal perihepatic ascites with a Hounsfield measurement of 26 and trace fluid in the pelvis may reflect minimal hemoperitoneum. Bones/joints: No acute fracture. No dislocation. Soft tissues: Subcutaneous infiltration of the right anterolateral abdominal wall with skin thickening above the umbilicus and foci of gas at the superior aspect which may reflect infection and abscess. Slightly lobular soft tissue mass deep to the umbilicus measuring 7.9 x 4.8 x 5.8 cm. Vasculature: Incidental note of a retroaortic left renal vein. There is mild calcification of the abdominal aorta with extension into the iliac arteries. Lymph nodes: Normal. No enlarged lymph nodes. IMPRESSION: 1. Infiltration of the right anterolateral abdominal wall which may be hemorrhagic. 2. Skin thickening of the umbilicus with foci of gas consistent with recent laparoscopic procedure. Deep to the umbilicus, there is a lobular mass appears to be extraperitoneal measuring 7.9 x 4.8 x 5.8 cm consistent with hematoma. 3. Slight bibasilar interstitial prominence with minimal fibro-atelectatic change, greatest in the right lower lobe. 4. Minimal perihepatic fluid in trace fluid in the pelvis which may reflect minimal hemoperitoneum. 5. Colonic diverticulosis without diverticulitis. 6. Cholelithiasis. Electronically signed by: Renard Mata On 01/12/2019 05:41:47 AM
[2019-01-12 08:07] LABS: BASO % 0.3 % (0.0-1.0); EOS # 0.1 10^3/uL (0.0-0.50); EOS % 0.8 % (0.0-3.0); HEMATOCRIT 27.7 % (42.0-52.0); HEMOGLOBIN 9.1 g/dl (13.5-17.5); LYMPH % 30.9 % (24.0-44.0); MEAN CORPUSCULAR HEMOGLOBIN 30.7 pg (27.0-33.0); MEAN CORPUSCULAR HGB CONC 32.9 g/dl (32.0-36.5); MEAN CORPUSCULAR VOLUME 93.6 fl (80.0-96.0); MONO # 0.8 10^3/uL (0.0-0.8); MONO % 12.4 % (0.0-5.0); NEUTROPHILS # 3.6 10^3/uL (1.8-7.7); RED BLOOD COUNT 2.96 10^6/uL (4.30-6.10); WHITE BLOOD COUNT 6.5 10^3/uL (4.0-10.0)
[2019-01-12 08:08] LABS: PLATELET COUNT, AUTOMATED 59 10^3/uL (150-450)
[2019-01-12] MEDS ORDERED: HYDR-3713 PO (08:28)
[2019-01-12] MEDS ORDERED: ACET-897 PO (08:28)
[2019-01-12] MEDS ORDERED: FUROSEMIDE 20 MG TAB PO PRN (09:00)
[2019-01-12] MEDS ORDERED: PROMETHAZINE INJ 25 MG/ML VIAL (J2550) IV PRN (09:00)
[2019-01-12] MEDS ORDERED: PANTOPRAZOLE 40MG TAB (PROTONIX) PO SCH (09:00)
[2019-01-12] MEDS ORDERED: OMEPRAZOLE 20 MG CAP PO SCH (09:00)
[2019-01-12] MEDS ORDERED: ONDANSETRON 4MG/2ML VIAL (J2405) IV PRN (09:00)
[2019-01-12] MEDS ORDERED: ACETAMINOPHEN 500 MG TAB PO PRN (09:00)
[2019-01-12] MEDS: NS 1,000 ML IV SCH ×3 (09:47→23:57)
[2019-01-12] MEDS: FINASTERIDE 5 MG TAB PO SCH (09:47)
[2019-01-12] MEDS: amLODIPine 5 MG TAB PO SCH (09:47)
[2019-01-12 11:56] LABS: HEMATOCRIT 27.7 % (42.0-52.0); HEMOGLOBIN 9.1 g/dl (13.5-17.5); MEAN CORPUSCULAR HEMOGLOBIN 30.7 pg (27.0-33.0); MEAN CORPUSCULAR HGB CONC 32.9 g/dl (32.0-36.5); MEAN CORPUSCULAR VOLUME 93.6 fl (80.0-96.0); RED BLOOD COUNT 2.96 10^6/uL (4.30-6.10); WHITE BLOOD COUNT 6.6 10^3/uL (4.0-10.0)
[2019-01-12 11:59] LABS: PLATELET COUNT, AUTOMATED 60 10^3/uL (150-450)
[2019-01-12 14:00] VITALS: BP 127/72
[2019-01-12 18:00] VITALS: BP 111/57
[2019-01-12] MEDS ORDERED: PRAVASTATIN 20 MG TAB PO SCH (21:00)
[2019-01-12 22:00] VITALS: BP 132/72
[2019-01-13 06:00] VITALS: BP 144/77
[2019-01-13 08:24] LABS: HEMATOCRIT 27.4 % (42.0-52.0); HEMOGLOBIN 8.8 g/dl (13.5-17.5); MEAN CORPUSCULAR HEMOGLOBIN 30.4 pg (27.0-33.0); MEAN CORPUSCULAR HGB CONC 32.1 g/dl (32.0-36.5); MEAN CORPUSCULAR VOLUME 94.8 fl (80.0-96.0); RED BLOOD COUNT 2.89 10^6/uL (4.30-6.10); WHITE BLOOD COUNT 4.6 10^3/uL (4.0-10.0)
[2019-01-13 08:26] LABS: PLATELET COUNT, AUTOMATED 50 10^3/uL (150-450)
[2019-01-13 08:43] LABS: ALBUMIN 3.4 GM/DL (3.2-5.2); ALT/SGPT 23 U/L (12-78); BILIRUBIN,TOTAL 0.9 MG/DL (0.2-1.0); BLOOD UREA NITROGEN 11 MG/DL (7-18); CALCIUM LEVEL 8.5 MG/DL (8.8-10.2); CARBON DIOXIDE LEVEL 27 MEQ/L (21-32); CHLORIDE LEVEL 109 MEQ/L (98-107); CREATININE FOR GFR 0.73 MG/DL (0.70-1.30); GLOMERULAR FILTRATION RATE > 60.0 (>42); GLUCOSE, FASTING 107 MG/DL (70-100); POTASSIUM SERUM 3.7 MEQ/L (3.5-5.1); SODIUM LEVEL 140 MEQ/L (136-145); TOTAL PROTEIN 7.1 GM/DL (6.4-8.2)
[2019-01-13] MEDS: FINASTERIDE 5 MG TAB PO SCH (09:00)
[2019-01-13 09:02] VITALS: BP 131/67
[2019-01-13] MEDS: amLODIPine 5 MG TAB PO SCH (09:02)
[2019-01-13 10:00] VITALS: BP 135/71
--- NOTE | 2019-01-13 10:00 | HPE ---
DATE OF ADMISSION: 01/12/2019 HISTORY OF PRESENT ILLNESS: The patient is a 68-year-old male with ascites and cirrhosis who underwent a laparoscopic umbilical hernia repair with mesh approximately 2 days prior to admission. The patient was doing well over the first 24 hours, however acutely developed abdominal pain in the middle of night with some bleeding from his laparoscopic incisions on the right-hand side. He came to the emergency room for further evaluation/treatment and is here in the emergency room, had some minimal oozing from the site, which was relatively stable after he was seen. He underwent a CT scan which showed an abdominal wall hematoma with a little bit of intra-abdominal fluid but no other significant abnormality was appreciated. PAST MEDICAL HISTORY: Significant for: History of thrombocytopenia. History of anemia. History of ascites. History of cirrhosis. History of hypertension. Hypercholesterolemia Gastroesophageal reflux disease PAST SURGICAL HISTORY: History of left shoulder surgery. History of esophageal varices Hypertensive gastropathy. PHYSICAL EXAMINATION: Physical exam reveals a 68-year-old male who looks stated age. HEENT is unremarkable. NECK: Supple without adenopathy. LUNGS: Clear to auscultation without crackles, wheezes or rhonchi. HEART: Regular without murmur. ABDOMEN: Softly distended, has a hematoma/ecchymosis all along the right side of the abdomen where some laparoscopic incisions were placed. There is no active bleeding from this site. Otherwise, no other peritoneal signs are appreciated. IMPRESSION AND PLAN: The patient has had a postoperative bleed secondary to his low platelet count and at this point, given his platelet counts are still low and slightly diminished from his original CBC earlier, I do feel that it is reasonable to observe him overnight. Will see how he does and recheck him in the morning. If he is doing well, then we will plan on discharged to home. We will first start him on a clear liquid diet given that he has no GI complaints and if he is doing well and hematocrit stable later on today, will progress him to a regular diet.
--- NOTE | 2019-01-13 10:16 | IPN ---
DATE: 01/13/2019 The patient overnight has been doing quite well. He states that he has not had any drainage from the site. When I saw yesterday afternoon he did not have any ongoing drainage. His platelet count was stable. His hematocrit was stable. He has been doing well overnight and complains of some minimal drainage at the site but otherwise no other significant problems. He has not had any fevers or chills and obviously has a change in color hematoma / ecchymosis along his right side of his abdominal wall. On his physical exam otherwise his abdomen is soft. He has been tolerating a regular diet and is ready to go home from those issues. However, his platelet count is slightly down this morning and hematocrit very slightly diminished. Given his cirrhosis, anemia issues and overall he truly is a individual who is likely to be in jeopardy of bleeding and more easily I would like to recheck an H and H at noon and make sure that this is not trending down more, if it is he may need to spend the night but I anticipate that should be able to go home after lunch. From a standpoint of why these may be down slightly is that he did have his IV going for hydration given the blood loss that he had and anemia, but otherwise his blood pressure is coming up nicely. He has not been tachycardiac, etc. and thus we stop his IV this morning. And will see how he is doing after lunch and recheck his blood work.
[2019-01-13 12:58] LABS: HEMATOCRIT 26.4 % (42.0-52.0); HEMOGLOBIN 8.6 g/dl (13.5-17.5); MEAN CORPUSCULAR HEMOGLOBIN 30.3 pg (27.0-33.0); MEAN CORPUSCULAR HGB CONC 32.6 g/dl (32.0-36.5); RED BLOOD COUNT 2.84 10^6/uL (4.30-6.10); WHITE BLOOD COUNT 4.5 10^3/uL (4.0-10.0)
[2019-01-13 13:01] LABS: PLATELET COUNT, AUTOMATED 50 10^3/uL (150-450)
== END 2019-01-13 14:05 | disposition home or self-care (01) ==
LOC: M ED 02:42 → M ED INP 08:49 → M MSPAV 13:46
PROVIDERS: ADMIT Surgery; ATTEND Surgery
DX: K91.841 Postprocedural hemorrhage of a digestive system organ or structure following other procedure (principal); D64.9 Anemia, unspecified; I10 Essential (primary) hypertension; E78.00 Pure hypercholesterolemia, unspecified; K74.69 Other cirrhosis of liver; K21.9 Gastro-esophageal reflux disease without esophagitis; D69.6 Thrombocytopenia, unspecified; Z79.899 Other long term (current) drug therapy
CPT/HCPCS: 36415; 74177; 80053; 85025; 85027; 85049; 85055; 85610; 85730; 86850; 86900; 86901; 96360; 96361; 99285; G0378; Q9967

== ENCOUNTER → 2019-01-16 | Outpatient (REF) | payer MEDICARE ==
[~2019-01-16] MED LIST changes: +ACET-897 PO; +HYDR-3713 PO
[2019-01-16 13:53] LABS: HEMATOCRIT 30.3 % (42.0-52.0); HEMOGLOBIN 9.7 g/dl (13.5-17.5); MEAN CORPUSCULAR HEMOGLOBIN 30.8 pg (27.0-33.0); MEAN CORPUSCULAR VOLUME 96.2 fl (80.0-96.0); RED BLOOD COUNT 3.15 10^6/uL (4.30-6.10); WHITE BLOOD COUNT 4.3 10^3/uL (4.0-10.0)
[2019-01-16 13:58] LABS: PLATELET COUNT, AUTOMATED 58 10^3/uL (150-450)
[2019-01-16 14:02] LABS: BASO % 0.2 % (0.0-1.0); EOS # 0.1 10^3/uL (0.0-0.50); EOS % 1.9 % (0.0-3.0); LYMPH # 1.1 10^3/uL (1.5-4.5); LYMPH % 24.9 % (24.0-44.0); MONO # 0.5 10^3/uL (0.0-0.8); MONO % 10.5 % (0.0-5.0); NEUTROPHILS # 2.6 10^3/uL (1.8-7.7); NEUTROPHILS % 61.6 % (36.0-66.0)
[2019-01-17 09:18] LABS: ATYPICAL LYMPH 4 % (0-5); EOSINOPHILS 1 % (0-5); LYMPHOCYTES 24 % (16-52); MONOCYTES 5 % (0-8); NEUTROPHILS 66 % (35-75); PLATELET ESTIMATE DECREASED (NORMAL); POLYCHROMASIA 1+; TOXIC VACUOLATION 2+
[2019-01-17 09:19] LABS: ANISOCYTOSIS 2+; PLATELET CLUMPS SMALL AMT
== END ==
LOC: M LAB REF 13:14
PROVIDERS: ATTEND Family Medicine
DX: D69.6 Thrombocytopenia, unspecified (principal)

== ENCOUNTER → 2019-03-27 | Outpatient (CLI) | payer MEDICARE ==
[~2019-03-27] MED LIST changes: -OMEP40CA2 PO; +OMEP40CA97 PO
[2019-03-27 09:16] LABS: BASO % 0.4 % (0.0-1.0); EOS # 0.1 10^3/uL (0.0-0.50); EOS % 1.9 % (0.0-3.0); HEMATOCRIT 43.3 % (42.0-52.0); HEMOGLOBIN 13.9 g/dl (13.5-17.5); LYMPH # 0.8 10^3/uL (1.5-4.5); LYMPH % 30.9 % (24.0-44.0); MEAN CORPUSCULAR HEMOGLOBIN 29.9 pg (27.0-33.0); MEAN CORPUSCULAR HGB CONC 32.1 g/dl (32.0-36.5); MEAN CORPUSCULAR VOLUME 93.1 fl (80.0-96.0); MONO # 0.3 10^3/uL (0.0-0.8); MONO % 12.7 % (0.0-5.0); NEUTROPHILS # 1.4 10^3/uL (1.8-7.7); NEUTROPHILS % 53.7 % (36.0-66.0); RED BLOOD COUNT 4.65 10^6/uL (4.30-6.10); WHITE BLOOD COUNT 2.6 10^3/uL (4.0-10.0)
[2019-03-27 09:19] LABS: PLATELET COUNT, AUTOMATED 36 10^3/uL (150-450)
[2019-03-27 09:28] LABS: INR 1.15; PROTHROMBIN TIME 14.4 SECONDS (11.8-14.0)
[2019-03-27 09:34] LABS: ALBUMIN 3.8 GM/DL (3.2-5.2); ALT/SGPT 18 U/L (12-78); BILIRUBIN,TOTAL 0.7 MG/DL (0.2-1.0); BLOOD UREA NITROGEN 10 MG/DL (7-18); CALCIUM LEVEL 9.2 MG/DL (8.8-10.2); CARBON DIOXIDE LEVEL 30 MEQ/L (21-32); CHLORIDE LEVEL 105 MEQ/L (98-107); CREATININE FOR GFR 0.78 MG/DL (0.70-1.30); FERRITIN 21 NG/ML (26-388); GLOMERULAR FILTRATION RATE > 60.0 (>42); GLUCOSE, FASTING 92 MG/DL (70-100); IRON (FE) 76 UG/DL (65-175); PERCENT SATURATION 17.1 % (19.7-50.0); POTASSIUM SERUM 4.5 MEQ/L (3.5-5.1); SODIUM LEVEL 139 MEQ/L (136-145); TOTAL IRON BINDING CAPACITY 445 UG/DL (250-450); TOTAL PROTEIN 8.8 GM/DL (6.4-8.2)
[2019-03-27 11:00] LABS: HEPATITIS B SURFACE ANTIBODY NEGATIVE (POSITIVE)
[2019-03-27 11:10] LABS: HEPATITIS B SURFACE ANTIGEN NEGATIVE (NEGATIVE)
[2019-03-27 11:39] LABS: HEPATITIS C VIRUS ABY INDEX 0.1 INDEX (<0.8)
[2019-03-28 14:07] LABS: ALPHA 1 ANTITRYPSIN 159 mg/dL (90-200); ANTINUCLEAR ANTIBODIES DIRECT Negative (Negative); HEPATITIS A IgG TOTAL Positive (Negative); HEPATITIS B CORE ANTIBODY IGG Negative (Negative)
[2019-03-31 00:06] LABS: A1A FOR PHENOTYPE 163 mg/dL (90-200)
== END ==
LOC: M LAB 08:11
PROVIDERS: ATTEND Internal Medicine Gastroenterology
DX: K74.60 Unspecified cirrhosis of liver (principal); R18.8 Other ascites

== ENCOUNTER → 2019-03-28 | Outpatient (CLI) | payer MEDICARE ==
[~2019-03-28] MED LIST changes: +OMEP40CA2 PO; -OMEP40CA97 PO
--- NOTE | 2019-03-28 08:14 | REP ---
Abdominal right upper quadrant ultrasound for cirrhosis and abdominal ascites: Comparison is 09/19/2018. There are multiple mobile gallbladder calculi measuring up to 5 mm in diameter. These are unchanged. There is no gallbladder wall thickening or pericholecystic fluid. There is no intrahepatic or extrahepatic biliary duct dilatation. The common biliary duct measures 4.6 mm in diameter. The hepatic parenchyma is homogeneous. There are no hepatic masses. There is a trace of ascites surrounding the liver. The main portal vein is dilated measuring up to 18.4 mm, similar to the prior study. The visualized areas of the pancreas are unremarkable. The right kidney is normal size measuring 12.0 x 6.0 x 6.2 cm. There is no right renal calculus, hydronephrosis, mass or cyst. The Impression: There are no hepatic masses. There is a trace of ascites surrounding the liver. There is cholelithiasis without ultrasonographic evidence of acute cholecystitis. This is unchanged. Electronically Signed by Brien De Anda MD 03/28/2019 08:05 A
== END ==
LOC: M RAD 06:09
PROVIDERS: ATTEND Internal Medicine Gastroenterology
DX: K74.60 Unspecified cirrhosis of liver (principal); R18.8 Other ascites

== ENCOUNTER → 2019-04-17 | Outpatient (CLI) | payer MEDICARE ==
--- NOTE | 2019-04-17 18:32 | REP ---
REASON: Hip pain. No trauma. No priors for comparison. There is marginal osteophytosis when compared to an AP pelvis of 05/03/2018 this is essentially unchanged. There is asymmetric hip joint space narrowing with subchondral sclerosis. Also essentially unchanged, possibly slightly increased. There is no acute fracture. IMPRESSION:Chronic changes as described above. Electronically Signed by Sandoval Vidal DO 04/17/2019 07:56 P
== END ==
LOC: M WUC 15:57
PROVIDERS: ATTEND Nurse Practitioner Family
DX: M25.751 Osteophyte, right hip (principal); M25.551 Pain in right hip

== ENCOUNTER → 2019-06-19 | Outpatient (REF) | payer MEDICARE ==
[~2019-06-19] MED LIST changes: -OMEP40CA2 PO; +OMEP40CA97 PO
== END ==
LOC: M LAB REF 18:44
PROVIDERS: ATTEND Surgery
DX: C44.629 Squamous cell carcinoma of skin of left upper limb, including shoulder (principal)

== ENCOUNTER 2019-08-23 10:13 | Day surgery (SDC) | payer MEDICARE ==
[~2019-08-23] VITALS: Ht 177.8 cm; Wt 84.0 kg
[~2019-08-23 10:13] MED LIST changes: +NS 1,000 ML IV ONE
[2019-08-23] MEDS ORDERED: PROPOFOL 200 MG/20 ML VIAL As Ordered ONE (11:57)
[2019-08-23] MEDS ORDERED: LIDOCAINE 2% INJ 100 MG/5 ML SDV (FOR ANES.) As Ordered ONE (11:57)
--- NOTE | 2019-08-23 12:03 | ROOR ---
Patient Name: Cali Caicedo Procedure Date: 08/23/2019 11:46 AM Date of : 1950 Age: 69 Room: [facility] Gender: Male Note Status: Finalized Procedure: Upper GI endoscopy Indications: Cirrhosis rule out esophageal varices, Follow-up of esophageal varices Providers: Jose Castro MD Referring MD: Devon Jacques MD Requesting Provider: Medicines: Monitored Anesthesia Care Complications: No immediate complications. Procedure: Pre-Anesthesia Assessment: - The heart rate, respiratory rate, oxygen saturations, blood pressure, adequacy of pulmonary ventilation, and response to care were monitored throughout the procedure. The Endoscope was introduced through the mouth, and advanced to the second part of duodenum. The upper GI endoscopy was accomplished without difficulty. The patient tolerated the procedure well. Findings: The Z-line was variable and was found 39 cm from the incisors. Grade I varices were found in the lower third of the esophagus. Mild portal hypertensive gastropathy was found in the gastric antrum. The exam of the duodenum was otherwise normal. Impression: - Z-line variable, 39 cm from the incisors. - Grade I esophageal varices. - Portal hypertensive gastropathy. - No specimens collected. - The examination was otherwise normal. Recommendation: - Patient has a contact number available for emergencies. The signs and symptoms of potential delayed complications were discussed with the patient. Return to normal activities tomorrow. Written discharge instructions were provided to the patient. - High fiber diet. - Discharge patient to home. - Follow an antireflux regimen. - Continue present medications. - Return to referring physician. - The findings and recommendations were discussed with the patient's family. Jose Castro MD Jose Castro MD 08/23/2019 12:03:00 PM Electronically signed by Jose Castro MD Number of Addenda: 0 Note Initiated On: 08/23/2019 11:46 AM Estimated Blood Loss: Estimated blood loss: none.
[2019-08-23 12:20] VITALS: BP 160/85
== END 2019-08-23 12:33 | disposition home or self-care (01) ==
LOC: M OPP 10:13
PROVIDERS: ATTEND Internal Medicine Gastroenterology
DX: K22.8 Other specified diseases of esophagus (principal); K74.60 Unspecified cirrhosis of liver; I85.10 Secondary esophageal varices without bleeding; K76.6 Portal hypertension; K31.89 Other diseases of stomach and duodenum; Z79.899 Other long term (current) drug therapy; Z91.018 Allergy to other foods; Z87.891 Personal history of nicotine dependence

== ENCOUNTER → 2019-10-04 | Outpatient (CLI) | payer MEDICARE ==
[~2019-10-04] MED LIST changes: -NS 1,000 ML IV ONE
--- NOTE | 2019-10-04 09:48 | REP ---
Complete abdominal ultrasound for cirrhosis: Comparison is the 03/28/2019. There are multiple gallbladder calculi measuring up to 5 mm in diameter. This is unchanged. No hepatic masses or cysts are identified. This is unchanged. There is no intrahepatic or extrahepatic biliary duct dilatation. The common biliary duct measures 4 mm in diameter. The visualized areas of the pancreas are unremarkable. The spleen is enlarged measuring 16 x 16 x 7 cm for a splenic index of 1792. A small splenule adjacent to the spleen is incidentally noted measuring up to 2.4 mm. The kidneys are normal size. The right kidney measures 12.1 x 6.7 x 5.0 cm. The left kidney measures 13.5 x 6.0 x 5.0 cm. There are no renal solid or cystic masses. There are no renal calculi. There is no hydronephrosis. There is no abdominal aortic aneurysm. The proximal aorta measures 2.3 centimeters in diameter. The mid aorta measures 1.7 cm in diameter. The distal aorta measures 1.4 cm in diameter. There is a trace of free fluid adjacent to the gallbladder. Impression: There are no hepatic masses or cysts. No biliary duct dilatation. The splenomegaly. Trace of free fluid adjacent to the gallbladder. The There are multiple gallbladder calculi, unchanged. Electronically Signed by Brien De Anda MD 10/04/2019 09:39 A
== END ==
LOC: M RAD 08:12
PROVIDERS: ATTEND Internal Medicine Gastroenterology
DX: K80.20 Calculus of gallbladder without cholecystitis without obstruction (principal); R16.1 Splenomegaly, not elsewhere classified; K74.60 Unspecified cirrhosis of liver; R18.8 Other ascites

== ENCOUNTER → 2019-10-26 | Outpatient (REF) | payer MEDICARE | LOC: M LAB REF 12:17 | PROVIDERS: ATTEND Family Medicine | DX: D69.6 Thrombocytopenia, unspecified (principal); K74.60 Unspecified cirrhosis of liver ==

== ENCOUNTER → 2020-04-30 | Outpatient (REF) | payer MEDICARE ==
[~2020-04-30] MED LIST changes: +AMLO1TAB24 PO; -AMLO5TAB6 PO
== END ==
LOC: M LAB REF 16:37
PROVIDERS: ATTEND Family Medicine
DX: K74.60 Unspecified cirrhosis of liver (principal); D69.6 Thrombocytopenia, unspecified

== ENCOUNTER → 2020-07-08 | Outpatient (CLI) | payer MEDICARE ==
[2020-07-08 12:49] LABS: BASO % 0.4 % (0.0-1.0); EOS # 0.1 10^3/uL (0.0-0.5); EOS % 1.9 % (0.0-3.0); HEMATOCRIT 43.1 % (42.0-52.0); HEMOGLOBIN 13.5 g/dl (13.5-17.5); LYMPH # 0.8 10^3/uL (1.5-5.0); MEAN CORPUSCULAR HEMOGLOBIN 29.9 pg (27.0-33.0); MEAN CORPUSCULAR HGB CONC 31.3 g/dl (32.0-36.5); MEAN CORPUSCULAR VOLUME 95.4 fl (80.0-96.0); MONO # 0.3 10^3/uL (0.0-0.8); MONO % 10.9 % (0.0-5.0); NEUTROPHILS # 1.4 10^3/uL (1.5-8.5); NEUTROPHILS % 55.4 % (36.0-66.0); RED BLOOD COUNT 4.52 10^6/uL (4.30-6.10); WHITE BLOOD COUNT 2.6 10^3/uL (4.0-10.0)
[2020-07-08 12:54] LABS: PLATELET COUNT, AUTOMATED 37 10^3/uL (150-450)
[2020-07-08 12:58] LABS: INR 1.04; PROTHROMBIN TIME 13.8 SECONDS (12.5-14.3)
[2020-07-08 13:26] LABS: ALBUMIN 3.8 GM/DL (3.2-5.2); ALT/SGPT 29 U/L (12-78); BILIRUBIN,TOTAL 0.7 MG/DL (0.2-1.0); BLOOD UREA NITROGEN 11 MG/DL (7-18); CALCIUM LEVEL 9.3 MG/DL (8.8-10.2); CARBON DIOXIDE LEVEL 32 MEQ/L (21-32); CHLORIDE LEVEL 103 MEQ/L (98-107); CREATININE FOR GFR 0.83 MG/DL (0.70-1.30); GLOMERULAR FILTRATION RATE > 60.0 (>42); GLUCOSE, FASTING 112 MG/DL (70-100); SODIUM LEVEL 139 MEQ/L (136-145); TOTAL PROTEIN 8.3 GM/DL (6.4-8.2)
== END ==
LOC: M LAB 11:46
PROVIDERS: ATTEND Internal Medicine Gastroenterology
DX: K74.60 Unspecified cirrhosis of liver (principal)

== ENCOUNTER → 2020-07-10 | Outpatient (REF) | payer MEDICARE | LOC: M LAB REF 09:41 | PROVIDERS: ATTEND Ophthalmology | DX: D36.9 Benign neoplasm, unspecified site (principal) ==

== ENCOUNTER → 2020-08-28 | Outpatient (REF) | payer MEDICARE ==
[2020-08-28 13:52] LABS: INR 1.01; PROTHROMBIN TIME 13.5 SECONDS (12.5-14.3)
== END ==
LOC: M LAB REF 12:44
PROVIDERS: ATTEND Family Medicine
DX: K74.60 Unspecified cirrhosis of liver (principal)

== ENCOUNTER → 2020-09-20 | Outpatient (CLI) | payer MEDICARE | LOC: M LABSMTC 11:24 | PROVIDERS: ATTEND Anesthesiology | DX: Z01.812 Encounter for preprocedural laboratory examination (principal); Z20.822 Contact with and (suspected) exposure to COVID-19 ==

== ENCOUNTER 2020-09-25 10:52 | Day surgery (SDC) | payer MEDICARE ==
[~2020-09-25] VITALS: Ht 172.7 cm; Wt 86.2 kg
[~2020-09-25 10:52] MED LIST changes: +LIDOCAINE 2% 100MG/5ML SDV (FOR ANES.) As Ordered ONE; +NS 1,000 ML IV ONE; +propofoL 200 MG/20 ML VIAL As Ordered ONE
--- OUTSIDE RECORDS SUMMARY | 2020-09-25 10:56 | CCD | Continuity of Care Document ---
Author Author Lab Schedule, Cali Garcia Organization Unknown Address [address] [place] [id number] Phone Unavailable Care Team Providers Care Product Designer Name Role Phone Devon Jacques MD AUTM [phone] Deion Rodas MD AUTM [phone] Abbe Orellana JR, MD AUTM [phone] [facility] AUTM [phone] [facility] AUTM [phone] Problems Active Problems Provider Date Gastroesophageal reflux disease Tremaine Peralta D.O. O nset: 04/19/2012 Pure hypercholesterolemia Tremaine Peralta D.O. Onset: 04/19/2012 Essential hypertension Tremaine Peralta D.O. Onset: 03/2012 Generalized anxiety disorder Tremaine Peralta D.O. Onse t: 04/19/2012 Benign prostatic hypertrophy without outflow obstructi on Tremaine Peralta D.O. Onset: 04/19/2012 Social History Type Date Description Comments Sex Unknown ETOH Use Rarely consumes wine Tobacco Use Start: Unknown End: Unknown Patient is a former smoker smoked for 40 yrs 1 pack a day Allergies, Adverse Reactions, Alerts Description No Known Drug Allergies Medications Active Medications SIG Qnty Indications Ordering Provide r Date Omeprazole 40mg Capsules DR 1 by mouth every day Devon Jacques M.D. 05/25/2019 Lasix 20mg Tablets 1 by mouth every day as needed for swelling. 90tabs Devon Jacques M.D. 2017 Norvasc 5mg Tablets 1 by mouth every day 90tabs Devon Jacques M.D. 10/01/2016 Paroxetine HCL 20mg Tablets Take 1 Tablet By Mouth Once Every Day 90tamarquis Salguero MD Pravastatin Sodium 40mg Tablets take one tablet by mouth every day 90tamarquis Jacques M.D. 0 10/20/2011 Proscar 5mg Tablets take one tablet by mouth every day 90micheal Jacques M.D. 07/02/2008 Medications Administered in Office Medication SIG Qnty Indications Ordering Provider Date Depo-Medrol Injection Injection Tremaine Peralta D.O. 09/11/2002 Immunizations CPT Code Status Date Vaccine Lot # [id number] Refused 05/01/2020 Td(Adult)(Tetanus, Diphtheri a) unspecified U-Flu Refused 05/01/2020 Influenza,Unspecified [id number] Refused 05/01/2020 Shingrix Zoster Vaccine (HZV), Recombinant, Subunit, Adjuvanted [id number] Refused 05/01/2020 Pneumovax 23 [id number] Refused 05/01/2020 Prevnar 13 [id number] Refused 07/21/2018 Influenza Virus Vaccine, Quadrivalent (Cciiv4), Derived From Cell [id number] Refused 07/21/2018 Pneumovax 23 [id number] Refused 07/21/2018 Prevnar 13 40625 Refused 08/13/2017 Influenza Vaccin e Quadrivalent Preser/Antibiotic Free Im Use Vital Signs Date Vital Result Comment 08/29/2020 11:18am BP Systolic 148 mmHg BP Diastolic 72 mmHg Heart Rate 78 /min Height 71 inches 5'11" Weight 196.00 lb BMI (Body Mass Index) 27.3 kg/m2 05/01/2020 9:02am BP Systolic 122 mmHg BP Diastolic 72 mmHg Heart Rate 74 /min Height 71 inches 5'11" Weight 192.12 lb O2 % BldC Oximetry 98 % RM Air BMI (Body Mass Index) 26.8 kg/m2 Results Test Acquired Date Facility Test Result H/L Range Note Prothrombin Time/Inr 08/28/2020 [facility] [address] [place], [place] [id number] [phone] Prothrombin Time 13.5 seconds Normal 12.5-14.3 Inr 1.01 Normal 1 Laboratory test finding 08/28/2020 [facility] [address] [place] [address] [phone] Alpha Fetoprotein Tumor Quant 3.4 NG/ML Normal <8 .1 2 Complete Blood Count 08/28/2020 [facility] Life Sciences Instructor: [place] [address] [phone] WBC 1.8 x10*3/UL Low 4.1 - 10.9 3 RBC 4.14 x10*6/UL Low 4.20 - 6.30 Hemoglobin 13.2 g/dL 12.0 - 18.0 Hematocrit 38.1 % 37.0 - 51.0 MCV 91.8 fL 80.0 - 97.0 MCH 32.0 pg 26.0 - 32.0 MCHC 34.8 g/dL 31.0 - 38.0 RDW 15.2 % High 11.6 - 13.7 PLT 38 x10*3/UL Low 140 - 440 4 MPV 10.7 FL 7.8 - 11.0 Lymph % 31.6 % 10.0 - 58.5 Mid % 6.5 % 1.7 - 9.3 Neut % 61.9 % 37.0 - 92.0 Lymph # 0.5 x10*3/UL Low 0.6 - 4.1 Mid # 0.2 x10*3/UL 0.1 - 0.6 Neut # 1.1 x10*3/UL Low 2.0 - 7.8 Comprehensive Chem Profile 08/28/2020 [facility] l[facility] maria Saldaña Life Sciences Instructor: [place] [address] [phone] Glucose 111 mg/dL High 74 - 99 5 BUN 12 mg/dL 7 - 18 Creatinine 0.8 mg/dL 0.6 - 1.3 Sodium 143 mEq/L 136 - 145 Potassium 4.4 mEq/L 3.5 - 5.1 Chloride 105 mEq/L 98 - 107 Carbon Dioxide 30 mEq/L 21 - 32 Calcium 8.8 mg/dL 8.5 - 10.1 Alk. Phosphatase 75 mg/dL 46 - 116 Total Bilirubin 0.5 mg/dL 0.2 - 1.0 Ast (Sgot) 18 U/L 15 - 37 Alt (SGPT) 20 U/L 12 - 78 Albumin 3.8 g/dL 3.4 - 5.0 Total Protein 7.9 g/dL 6.4 - 8.2 A/G Ratio 0.93 CALC Low 1.00 - 1.90 GFR >= 60 mL/min >60 GFR >= 60 mL/min >60 6 Laboratory test finding 08/28/2020 [facility] luz maria campbell Life Sciences Instructor: [place] [address] [phone] PSA 0.92 ng/mL <4.00 7 CBC With Differential 07/08/[address] [address] [phone] White Blood Count 2.6 10 Low 4.0-10.0 Red Blood Count 4.52 10 Normal 4.30-6.10 Hemoglobin 13.5 g/dL Normal 13.5-17.5 Hematocrit 43.1 % Normal 42.0-52.0 Mean Corpuscular Volume 95.4 fl Normal 80.0-96.0 Mean Corpuscular Hemoglobin 29.9 pg Normal 27.0-33.0 Mean Corpuscular HGB Conc 31.3 g/dL Low 32.0-36.5 Red Cell Distribution Width 15.4 % High 11.5-14.5 Platelet Count, Automated 37 10 Low 150-450 Neutrophils % 55.4 % Normal 36.0-66.0 Lymph % 31.0 % Normal 24.0-44.0 Simpson % 10.9 % High 0.0-5.0 Eos % 1.9 % Normal 0.0-3.0 Baso % 0.4 % Normal 0.0-1.0 Immature Granulocyte % 0.4 % Normal 0-3.0 Nucleated Red Blood Cell % 0.0 % Normal 0-0 Neutrophils # 1.4 10 Low 1.5-8.5 Lymph # 0.8 10 Low 1.5-5.0 Simpson # 0.3 10 Normal 0.0-0.8 Eos # 0.1 10 Normal 0.0-0.5 Baso # 0.0 10 Normal 0.0-0.2 Laboratory test finding 07/08/[address] [address] [phone] Immature Platelet Fraction 16.4 % High 0.0-1 0.91 Prothrombin Time/Inr 07/08/2020 [facility] [address] [place] [address] [phone] Prothrombin Time 13.8 seconds Normal 12.5-14.3 Inr 1.04 Normal 8 Comprehensive Metabolic Profil 07/08/2020 [facility] [address] [place] [address] [phone] Glucose, Fasting 112 mg/dL High 70-100 Blood Urea Nitrogen 11 mg/dL Normal 7-18 Creatinine For GFR 0.83 mg/dL Normal 0.70-1.30 Glomerular Filtration Rate > 60.0 Normal >42 9 Sodium Level 139 mEq/L Normal 136-145 Potassium Serum 4.0 mEq/L Normal 3.5-5.1 Chloride Level 103 mEq/L Normal 98-107 Carbon Dioxide Level 32 mEq/L Normal 21-32 Anion Gap 4 mEq/L Low 8-16 Calcium Level 9.3 mg/dL Normal 8.8-10.2 Ast/Sgot 24 U/L Normal 7-37 Alt/SGPT 29 U/L Normal 12-78 Alkaline Phosphatase 94 U/L Normal 45-117 Bilirubin,Total 0.7 mg/dL Normal 0.2-1.0 Total Protein 8.3 GM/DL High 6.4-8.2 Albumin 3.8 GM/DL Normal 3.2-5.2 Albumin/Globulin Ratio 0.8 Normal Laboratory test finding 07/08/2020 [facility] [address] [place] [address] [phone] Alpha Fetoprotein Tumor Quant 2.5 NG/ML Normal <8 .1 10 Serum Protein Electrophoresis 05/16/[address] [address] [phone] Albumin % 54.5 % Low 55.8-66.1 Xgyqb-0-Mbhiphoi % 3.6 % Normal 2.9-4.9 Tqyae-9-Tvpgoytng % 7.2 % Normal 7.1-11.8 Rapj-0-Kmqlfelyo % 5.7 % Normal 4.7-7.2 Ezhn-6-Thuthdvmp % 4.9 % Normal 3.2-6.5 Gamma Globulin % 24.1 % High 11.1-18.8 Albumin 4.80 GM/DL Normal 3.29-5.55 Aappx-8-Vxunoxruz 0.32 GM/DL Normal 0.17-0.41 Vnvfs-3-Fpcsovmmo 0.63 GM/DL Normal 0.42-0.99 Xzoj-5-Bdkvgqfum 0.50 GM/DL Normal 0.28-0.60 Mylc-6-Bxyjbjubo 0.43 GM/DL Normal 0.19-0.55 Gamma Globulins 2.12 GM/DL High 0.65-1.58 Total Protein 8.8 GM/DL High 6.4-8.2 Spep Interpretation SEE COMMENT Normal 11 Spep Pathologist Review REV'D BY Matteo LANZA <SEE NOTE> Normal 12 Immunotyping (Immunofixation) Serum (If 05/16/[address] [id number] [phone] Immunotyping Serum Igg ABNORMAL High Normal Immunotyping Serum Converse ABNORMAL High Normal It Serum Interpretation SEE COMMENT Normal 13 Its Pathologist Review REV'D BY Matteo LANZA <SEE NOTE> Normal 14 Comprehensive Metabolic Profil 05/16/[address] [id number] [phone] Glucose, Fasting 138 mg/dL High 70-100 Blood Urea Nitrogen 9 mg/dL Normal 7-18 Creatinine For GFR 0.78 mg/dL Normal 0.70-1.30 Glomerular Filtration Rate > 60.0 Normal >42 1 5 Sodium Level 139 mEq/L Normal 136-145 Potassium Serum 3.7 mEq/L Normal 3.5-5.1 Chloride Level 105 mEq/L Normal 98-107 Carbon Dioxide Level 29 mEq/L Normal 21-32 Anion Gap 5 mEq/L Low 8-16 Calcium Level 9.3 mg/dL Normal 8.8-10.2 Ast/Sgot 16 U/L Normal 7-37 Alt/SGPT 24 U/L Normal 12-78 Alkaline Phosphatase 85 U/L Normal 45-117 Bilirubin,Total 0.7 mg/dL Normal 0.2-1.0 Total Protein 8.8 GM/DL High 6.4-8.2 Albumin 3.9 GM/DL Normal 3.2-5.2 Albumin/Globulin Ratio 0.8 Normal Free Converse & Lambda LT Chains 05/16/[address] [address] [phone] Free Converse Light Chains Serum 49.5 mg/L High 3. 3-19.4 Free Lambda Light Chains Serum 49.4 mg/L High 5.7-26.3 Converse/Lambda Ratio Serum 1.00 Normal 0.26-1.65 16 Laboratory test finding 05/16/[address] [address] [phone] Immature Platelet Fraction 18.1 % High 0.0-1 0.91 CBC With Differential 05/16/[address] [address] [phone] White Blood Count 2.5 10 Low 4.0-10.0 Red Blood Count 4.44 10 Normal 4.30-6.10 Hemoglobin 13.8 g/dL Normal 13.5-17.5 Hematocrit 41.8 % Low 42.0-52.0 Mean Corpuscular Volume 94.1 fl Normal 80.0-96.0 Mean Corpuscular Hemoglobin 31.1 pg Normal 27.0-33.0 Mean Corpuscular HGB Conc 33.0 g/dL Normal 32.0-36.5 Red Cell Distribution Width 15.6 % High 11.5-14.5 Platelet Count, Automated 38 10 Low 150-450 17 Neutrophils % 52.0 % Normal 36.0-66.0 Lymph % 34.5 % Normal 24.0-44.0 Simpson % 10.3 % High 0.0-5.0 Eos % 2.0 % Normal 0.0-3.0 Baso % 0.4 % Normal 0.0-1.0 Immature Granulocyte % 0.8 % Normal 0-3.0 Nucleated Red Blood Cell % 0.0 % Normal 0-0 Neutrophils # 1.3 10 Low 1.5-8.5 Lymph # 0.9 10 Low 1.5-5.0 Simpson # 0.3 10 Normal 0.0-0.8 Eos # 0.1 10 Normal 0.0-0.5 Baso # 0.0 10 Normal 0.0-0.2 Laboratory test finding 04/30/[address] [address] [phone] Ammonia 22 uMOL/L Normal <32 Ferritin 24 NG/ML Low 26-388 Alpha Fetoprotein Tumor Quant 4.1 NG/ML Normal <8.1 18 Laboratory test finding 04/30/2020 [facility] [address] [place] [address] [phone] Alpha Fetoprotein Tumor Quant 4.1 NG/ML Normal <8 .1 19 Complete Blood Count 04/30/2020 [facility] luz maria acosta Life Sciences Instructor: [place] [address] [phone] WBC 2.3 x10*3/UL Low 4.1 - 10.9 RBC 4.44 x10*6/UL 4.20 - 6.30 Hemoglobin 13.5 g/dL 12.0 - 18.0 Hematocrit 40.2 % 37.0 - 51.0 MCV 90.4 fL 80.0 - 97.0 MCH 30.4 pg 26.0 - 32.0 MCHC 33.6 g/dL 31.0 - 38.0 RDW 15.0 % High 11.6 - 13.7 PLT 34 x10*3/UL Low 140 - 440 20 MPV 10.8 FL 7.8 - 11.0 Lymph % 29.0 % 10.0 - 58.5 Mid % 8.8 % 1.7 - 9.3 Neut % 62.2 % 37.0 - 92.0 Lymph # 0.6 x10*3/UL 0.6 - 4.1 Mid # 0.3 x10*3/UL 0.1 - 0.6 Neut # 1.4 x10*3/UL Low 2.0 - 7.8 Comprehensive Chem Profile 04/30/2020 [facility] mar[facility] cash Life Sciences Instructor: [place] [address] [phone] Glucose 115 mg/dL High 74 - 99 21 BUN 9 mg/dL 7 - 18 Creatinine 1.0 mg/dL 0.6 - 1.3 Sodium 143 mEq/L 136 - 145 Potassium 4.3 mEq/L 3.5 - 5.1 Chloride 105 mEq/L 98 - 107 Carbon Dioxide 31 mEq/L 21 - 32 Calcium 9.1 mg/dL 8.5 - 10.1 Alk. Phosphatase 80 mg/dL 46 - 116 Total Bilirubin 0.6 mg/dL 0.2 - 1.0 Ast (Sgot) 15 U/L 15 - 37 Alt (SGPT) 21 U/L 12 - 78 Albumin 3.9 g/dL 3.4 - 5.0 Total Protein 8.4 g/dL High 6.4 - 8.2 A/G Ratio 0.87 CALC Low 1.00 - 1.90 GFR >= 60 mL/min >60 GFR >= 60 mL/min >60 22 Lipid Profile 04/30/2020 [facility] Life Sciences Instructor: Dr Igor Salguero [place], [place] [id number] [phone] Cholesterol 166 mg/dL 131 - 200 Triglycerides 133 mg/dL 30 - 150 HDL Cholesterol 39 mg/dL 35 - 60 LDL (Calculated) 100 CALC 50 - 159 1 THERAPUTIC HUMAN INR VALUES INDICATIONS NORMAL RANGES PROPHYLAXIS/TREATMENT OF: VENOUS THROMBOSIS 2.0-3.0 PULMONARY EMBOLISM 2.0-3.0 PREVENTION OF SYSTEMIC EMBOLISM FROM: TISSUE HEART VALVES 2.0-3.0 ACUTE MYOCARDIAL INFARCTION 2.0-3.0 VALVULAR HEART DISEASE 2.0-3.0 ATRIAL FIBRILLATION 2.0-3.0 MECHANICAL VALVES(HIGH RISK) 2.5-3.5 RECURRENT MYOCARDIAL INFARCTION 2.5-3.5 2 THE AFP ASSAY IS PERFORMED O N THE [employer] BY CHEMILUMINESCENCE AND SHOULD NOT BE COMPARED INTERCHANGEABLY WITH OTHER METHODS. IT SHOULD NOT BE USED ALONE A SCREENING TEST OR DIAGNOSIS FOR THE PRESENCE OR ABSENCE OF MALIGNANT DISEASE. THESE RESULTS ARE NOT INTERPRETABLE IN FEMALES. PREDICTIONS OF DISEASE RECURRENCE SHOULD NOT BE BASED SOLELY ON VALUES OBTAINED FROM SERIAL PATIENT SERUM VALUES. 3 NOTE: RESULT VERIFIED. 4 NOTE: RESULT VERIFIED. 5 100-125 mg/dL PRE-DIABET ES/FASTING >126 mg/dL DIABETES/FASTING 6 CHRONIC KIDNEY DISEASE STAGI NG PER NKF STAGE I & II GFR >= 60 NORMAL TO MILDLY DECREASED STAGE III GFR 30-59 MODERATELY DECREASED STAGE IV GFR 15-29 SEVERELY DECREASED STAGE V GFR <15 VERY LITTLE GFR LEFT ESRD GFR <15 ON WEDDING PHOTOGRAPHER 7 This assay was performed on the Siemens Dimension EXL using the B- Galactosidase/CPRG methodology and should not be compared interchangeably with other methods. The PSA should not be used alone as a screening test for the presence or absence of malignant disease. 8 THERAPUTIC HUMAN INR VALUES INDICATIONS NORMAL RANGES PROPHYLAXIS/TREATMENT OF: VENOUS THROMBOSIS 2.0-3.0 PULMONARY EMBOLISM 2.0-3.0 PREVENTION OF SYSTEMIC EMBOLISM FROM: TISSUE HEART VALVES 2.0-3.0 ACUTE MYOCARDIAL INFARCTION 2.0-3.0 VALVULAR HEART DISEASE 2.0-3.0 ATRIAL FIBRILLATION 2.0-3.0 MECHANICAL VALVES(HIGH RISK) 2.5-3.5 RECURRENT MYOCARDIAL INFARCTION 2.5-3.5 9 Units are mL/min/1.73 m2 Chronic Kidney Disease Staging per NKF: Stage I & II GFR >=60 Normal to Mildly Decreased Stage III GFR 30-59 Moderately Decreased Stage IV GFR 15-29 Severely Decreased Stage V GFR <15 Very Little GFR Left ESRD GFR <15 on WEDDING PHOTOGRAPHER 10 THE AFP ASSAY IS PERFORMED O N THE [employer] BY CHEMILUMINESCENCE AND SHOULD NOT BE COMPARED INTERCHANGEABLY WITH OTHER METHODS. IT SHOULD NOT BE USED ALONE A SCREENING TEST OR DIAGNOSIS FOR THE PRESENCE OR ABSENCE OF MALIGNANT DISEASE. THESE RESULTS ARE NOT INTERPRETABLE IN FEMALES. PREDICTIONS OF DISEASE RECURRENCE SHOULD NOT BE BASED SOLELY ON VALUES OBTAINED FROM SERIAL PATIENT SERUM VALUES. 11 ATYPICAL SHAPE OF GAMMA MONICA ON NOTED. UNABLE TO DEFINITIVELY DETERMINE THE PRESENCE OF ATYPICAL BANDS. SUGGEST FOLLOW-UP IN 6-9 MONTHS IF PATIENT'S SYMPTOMS WARRANT. 12 REV'D BY Matteo ANGUIANO 13 IGG,KAPPA 14 REV'D BY Matteo ANGUIANO 15 Units are mL/min/1.73 m2 Chronic Kidney Disease Staging per NKF: Stage I & II GFR >=60 Normal to Mildly Decreased Stage III GFR 30-59 Moderately Decreased Stage IV GFR 15-29 Severely Decreased Stage V GFR <15 Very Little GFR Left ESRD GFR <15 on WEDDING PHOTOGRAPHER 16 Performed at: - [facility] [id number] Life Sciences Instructor: Olena Bolton MD, Phone: [phone] 17 Scan Verified machine result s PLATELET COUNT LESS THAN 100, AND NEW OCCURANCE OR 18 THE AFP ASSAY IS PERFORMED O N THE [employer] BY CHEMILUMINESCENCE AND SHOULD NOT BE COMPARED INTERCHANGEABLY WITH OTHER METHODS. IT SHOULD NOT BE USED ALONE A SCREENING TEST OR DIAGNOSIS FOR THE PRESENCE OR ABSENCE OF MALIGNANT DISEASE. THESE RESULTS ARE NOT INTERPRETABLE IN FEMALES. PREDICTIONS OF DISEASE RECURRENCE SHOULD NOT BE BASED SOLELY ON VALUES OBTAINED FROM SERIAL PATIENT SERUM VALUES. 19 THE AFP ASSAY IS PERFORMED O N THE [employer] BY CHEMILUMINESCENCE AND SHOULD NOT BE COMPARED INTERCHANGEABLY WITH OTHER METHODS. IT SHOULD NOT BE USED ALONE A SCREENING TEST OR DIAGNOSIS FOR THE PRESENCE OR ABSENCE OF MALIGNANT DISEASE. THESE RESULTS ARE NOT INTERPRETABLE IN FEMALES. PREDICTIONS OF DISEASE RECURRENCE SHOULD NOT BE BASED SOLELY ON VALUES OBTAINED FROM SERIAL PATIENT SERUM VALUES. 20 NOTE: RESULT VERIFIED. 21 100-125 mg/dL PRE-DIABET ES/FASTING >126 mg/dL DIABETES/FASTING 22 CHRONIC KIDNEY DISEASE STAGI NG PER NKF STAGE I & II GFR >= 60 NORMAL TO MILDLY DECREASED STAGE III GFR 30-59 MODERATELY DECREASED STAGE IV GFR 15-29 SEVERELY DECREASED STAGE V GFR <15 VERY LITTLE GFR LEFT ESRD GFR <15 ON WEDDING PHOTOGRAPHER Procedures Date Code Description Status 07/29/2018 760787587 Diabetic Retinal Eye Exam Comple mahi 05/26/2018 [id number] Colonoscopy Completed 05/25/2018 [id number] Colonoscopy Completed 12/30/2016 [id number] Colonoscopy Completed 12/28/2016 [id number] Colonoscopy Completed 09/16/2016 [id number] Diabetic Retinal Eye Exam Comple mahi 09/17/2014 [id number] Colonoscopy Completed 05/04/2012 [id number] Colonoscopy Completed 07/07/2010 [id number] Colonoscopy Completed 05/28/2008 [id number] Colonoscopy Completed Medical Devices Description No Information Available Encounters Description No Information Available Assessments Date Code Description Provider 08/28/2020 D69.6 Thrombocytopenia, unspecified [place] Jacques M.D. 08/28/2020 D69.6 Thrombocytopenia, unspecified La b Schedule 08/28/2020 I10 Essential (primary) hypertension Devon Jacques M.D. 08/28/2020 I10 Essential (primary) hypertension Lab Schedule 08/28/2020 N40.0 Benign prostatic hyp erplasia without lower urinary tract symptoms Devon Jacques M.D. 08/28/2020 N40.0 Benign prostatic hyperplasia wit hout lower urinary tract sym Lab Schedule 05/01/2020 K74.60 Unspecified cirrhosis of liver Radha Jacques M.D. 05/01/2020 D69.6 Thrombocytopenia, unspecified [place] Jacques M.D. 05/01/2020 E78.00 Pure hypercholesterolemia, unspe cified Devon Jacques M.D. 05/01/2020 I10 Essential (primary) hypertension Devon Jacques M.D. 05/01/2020 N40.0 Benign prostatic hyperplasia wit hout lower urinary tract sym Devon Jacques M.D. 05/01/2020 F41.1 Generalized anxiety disorder Moise Jacques M.D. 05/01/2020 R01.1 Cardiac murmur, unspecified Oanh Jacques M.D. 05/01/2020 D47.2 Monoclonal gammopathy Devon plunkett M.D. 05/01/2020 K21.9 Gastro-esophageal reflux disease without esophagitis Devon Jacques M.D. 05/01/2020 K22.70 Alexandre's esophagus without dysp lasia Devon Jacques M.D. 05/01/2020 Z86.010 Personal history of colonic poly ps Devon Jacques M.D. 05/01/2020 Z13.89 Encounter for screening for othe r disorder Devon Jacques M.D. 04/30/2020 D69.6 Thrombocytopenia, unspecified Cleveland Jacques M.D. 04/30/2020 D69.6 Thrombocytopenia, unspecified La b Schedule 04/30/2020 K74.60 Unspecified cirrhosis of liver J ezra Jacques M.D. 04/30/2020 K74.60 Unspecified cirrhosis of liver L ab Schedule 04/30/2020 I10 Essential (primary) hypertension Devon Jacques M.D. 04/30/2020 I10 Essential (primary) hypertension Lab Schedule 04/30/2020 E78.00 Pure hypercholesterolemia, unspe cified Devon Jacques M.D. 04/30/2020 E78.00 Pure hypercholesterolemia, unspe cified Lab Schedule Plan of Treatment No Information Available Functional Status Description No Information Available Mental Status Description No Information Available Referrals Description No Information Available
--- OUTSIDE RECORDS SUMMARY | 2020-09-25 10:56 | CCD | Continuity of Care Document ---
Author Author Lab Schedule, Cali Garcia Organization Unknown Address [address] [place] [phone] Phone Unavailable Care Team Providers Care Ratings Analyst Name Role Phone Devon Jacques MD AUTM [phone] Deion Rodas MD AUTM [phone] Abbe Orellana JR, MD AUTM [phone] [facility] Dermatology AUTM [phone] [facility] AUTM [phone] Problems Active Problems Provider Date Gastroesophageal reflux [...] Diphtheri a) unspecified U-Flu Refused 05/01/2020 Influenza,Unspecified 96826 Refused 05/01/2020 Shingrix Zoster Vaccine (HZV), Recombinant, Subunit, Adjuvanted 12129 Refused 05/01/2020 Pneumovax 23 12430 Refused 05/01/2020 Prevnar 13 85236 Refused 07/21/2018 Influenza Virus Vaccine, Quadrivalent (Cciiv4), Derived From Cell 53136 Refused 07/21/2018 Pneumovax 23 59350 Refused 07/21/2018 Prevnar 13 60838 Refused 08/13/2017 Influenza Vaccin e Quadrivalent Preser/Antibiotic [...] Result H/L Range Note Prothrombin Time/Inr 08/28/2020 [facility] [address] [place], [place] [id number] [phone] Prothrombin Time 13.5 seconds Normal 12.5-14.3 Inr 1.01 Normal 1 Laboratory test finding 08/28/2020 [facility] [address] [place] [address] [phone] Alpha Fetoprotein Tumor Quant 3.4 NG/ML Normal <8 .1 2 Complete Blood Count 08/28/2020 [facility] Branch Lending Manager: [place] [address] [phone] WBC 1.8 x10*3/UL Low 4.1 - 10.9 [...] 2.0 - 7.8 Comprehensive Chem Profile 08/28/2020 [facility] maria Saldaña Branch Lending Manager: [place] [address] [phone] Glucose 111 mg/dL High 74 - 99 [...] mL/min >60 6 Laboratory test finding 08/28/2020 [facility] luz maria campbell Branch Lending Manager: [place] [address] [phone] PSA 0.92 ng/mL <4.00 7 CBC With Differential 07/08/[address] [address] [phone] White Blood Count 2.6 10 Low 4.0-10.0 [...] 36.0-66.0 Lymph % 31.0 % Normal 24.0-44.0 Meade % 10.9 % High 0.0-5.0 Eos % 1.9 % Normal 0.0-3.0 Baso % 0.4 % Normal 0.0-1.0 Immature Granulocyte % 0.4 % Normal 0-3.0 Nucleated Red Blood Cell % 0.0 % Normal 0-0 Neutrophils # 1.4 10 Low 1.5-8.5 Lymph # 0.8 10 Low 1.5-5.0 Meade # 0.3 10 Normal 0.0-0.8 Eos # 0.1 10 Normal 0.0-0.5 Baso # 0.0 10 Normal 0.0-0.2 Laboratory test finding 07/08/[address] [address] [phone] Immature Platelet Fraction 16.4 % High 0.0-1 0.91 Prothrombin Time/Inr 07/08/2020 [facility] [address] [place] [address] [phone] Prothrombin Time 13.8 seconds Normal 12.5-14.3 Inr 1.04 Normal 8 Comprehensive Metabolic Profil 07/08/2020 [facility] [address] [place] [address] [phone] Glucose, Fasting 112 mg/dL High 70-100 Blood [...] Ratio 0.8 Normal Laboratory test finding 07/08/2020 [facility] [address] [place] [address] [phone] Alpha Fetoprotein Tumor Quant 2.5 NG/ML Normal <8 .1 10 Serum Protein Electrophoresis 05/16/[address] [address] [phone] Albumin % 54.5 % Low 55.8-66.1 Bdzbl-9-Kwhgrgrw % 3.6 % Normal 2.9-4.9 Dfnhi-1-Ostsdffbe % 7.2 % Normal 7.1-11.8 Wbhr-3-Mbdudrjyh % 5.7 % Normal 4.7-7.2 Fkqn-7-Gbkoxraex % 4.9 % Normal 3.2-6.5 Gamma Globulin % 24.1 % High 11.1-18.8 Albumin 4.80 GM/DL Normal 3.29-5.55 Qsfeq-6-Tpdjinbbz 0.32 GM/DL Normal 0.17-0.41 Bkjhe-6-Fwrwhlgaa 0.63 GM/DL Normal 0.42-0.99 Qnbn-5-Hfiuukiky 0.50 GM/DL Normal 0.28-0.60 Fklw-3-Rxikvxadf 0.43 GM/DL Normal 0.19-0.55 Gamma Globulins 2.12 GM/DL High 0.65-1.58 Total Protein 8.8 GM/DL High 6.4-8.2 Spep Interpretation SEE COMMENT Normal 11 Spep Pathologist Review REV'D BY Matteo LANZA <SEE NOTE> Normal 12 Immunotyping (Immunofixation) Serum (If 05/16/[address] [id number] [phone] Immunotyping Serum Igg ABNORMAL High Normal Immunotyping Serum [place] ABNORMAL High Normal It Serum Interpretation SEE COMMENT Normal 13 Its Pathologist Review REV'D BY Matteo LANZA <SEE NOTE> Normal 14 Comprehensive Metabolic Profil 05/16/[address] [id number] [phone] Glucose, Fasting 138 mg/dL High 70-100 Blood [...] Normal 3.2-5.2 Albumin/Globulin Ratio 0.8 Normal Free [place] & Lambda LT Chains 05/16/[address] [address] [phone] Free [place] Light Chains Serum 49.5 mg/L High 3. 3-19.4 Free Lambda Light Chains Serum 49.4 mg/L High 5.7-26.3 [place]/Lambda Ratio Serum 1.00 Normal 0.26-1.65 16 Laboratory test finding 05/16/[address] [address] [phone] Immature Platelet Fraction 18.1 % High 0.0-1 0.91 CBC With Differential 05/16/[address] [address] [phone] White Blood Count 2.5 10 Low 4.0-10.0 [...] 36.0-66.0 Lymph % 34.5 % Normal 24.0-44.0 Meade % 10.3 % High 0.0-5.0 Eos % 2.0 % Normal 0.0-3.0 Baso % 0.4 % Normal 0.0-1.0 Immature Granulocyte % 0.8 % Normal 0-3.0 Nucleated Red Blood Cell % 0.0 % Normal 0-0 Neutrophils # 1.3 10 Low 1.5-8.5 Lymph # 0.9 10 Low 1.5-5.0 Meade # 0.3 10 Normal 0.0-0.8 Eos # 0.1 10 Normal 0.0-0.5 Baso # 0.0 10 Normal 0.0-0.2 Laboratory test finding 04/30/[address] [address] [phone] Ammonia 22 uMOL/L Normal <32 Ferritin 24 NG/ML Low 26-388 Alpha Fetoprotein Tumor Quant 4.1 NG/ML Normal <8.1 18 Laboratory test finding 04/30/2020 [facility] [address] [place] [address] [phone] Alpha Fetoprotein Tumor Quant 4.1 NG/ML Normal <8 .1 19 Complete Blood Count 04/30/2020 [facility] luz maria acosta Branch Lending Manager: [place] [address] [phone] WBC 2.3 x10*3/UL Low 4.1 - 10.9 [...] 2.0 - 7.8 Comprehensive Chem Profile 04/30/2020 [facility] Branch Lending Manager: [place] [address] [phone] Glucose 115 mg/dL High 74 - 99 [...] 60 mL/min >60 22 Lipid Profile 04/30/2020 [facility] Branch Lending Manager: Dr Igor Salguero [place], [place] [address] [phone] Cholesterol 166 mg/dL 131 - 200 Triglycerides [...] AFP ASSAY IS PERFORMED O N THE [employer] BY CHEMILUMINESCENCE AND SHOULD NOT BE COMPARED [...] LITTLE GFR LEFT ESRD GFR <15 ON LIFE SCIENCES DIRECTOR 7 This assay was performed on the [...] Little GFR Left ESRD GFR <15 on LIFE SCIENCES DIRECTOR 10 THE AFP ASSAY IS PERFORMED O [...] Little GFR Left ESRD GFR <15 on LIFE SCIENCES DIRECTOR 16 Performed at: - [facility] [id number] Branch Lending Manager: Olena Bolton MD, Phone: [phone] Scan Verified machine result s PLATELET [...] LITTLE GFR LEFT ESRD GFR <15 ON LIFE SCIENCES DIRECTOR Procedures Date Code Description Status 07/29/2018 [id number] Diabetic Retinal Eye Exam Comple mahi 05/26/2018 [id number] Colonoscopy Completed 05/25/2018 [id number] Colonoscopy Completed 12/30/2016 [id number] Colonoscopy Completed 12/28/2016 [id number] Colonoscopy Completed 09/16/2016 [id number] Diabetic Retinal Eye Exam Comple mahi 09/17/2014 [id number] Colonoscopy Completed 05/04/2012 [id number] Colonoscopy Completed 07/07/2010 [id number] Colonoscopy Completed 05/28/2008 [id number] Colonoscopy Completed Medical Devices Description No Information [...]
--- OUTSIDE RECORDS SUMMARY | 2020-09-25 10:56 | CCD ---
Author Author [facility] Organization [facility] on [facility] Address Unknown Phone Unavailable Care Team Providers Care Equipment Processer Storage Name Role Phone Shane Rae Unavailable PROBLEMS No Information ALLERGIES Allergen (clinical drug ingredient) Drug/Non Drug Allergy do cumented on EMR Reaction Allergy Type Onset Date Status peppermint Rash Non Drug Allergy Active ENCOUNTERS from 1950 to 2020-09-21 Encounter Location Date Provider Diagnosis [facility] Dermatology [address] [address] Sep, Shane Rae Seborrheic keratosis L82.1 ; Actinic keratosis L57.0 ; Nevus D22.9 ; Wilkes angioma D18.01 ; Other viral warts B07.8 and Nevus of back D22.5 IMMUNIZATIONS No Information SOCIAL HISTORY Tobacco Use: Social History Observation Description Date Details (start date - stop date) Former Smoker Sex Assigned At : Social History Observation Description Sex Assigned At Unknown Alcohol Screening: Question Answer Notes Did you have a drink containing alcohol in the past year? No Points 0 Interpretation Negative Tobacco Use: Question Answer Notes Are you a: former smoker REASON FOR REFERRAL No Information VITAL SIGNS Weight 198 lbs Sep, Height 70 in Sep, BMI 28.41 kg/m2 Sep, Blood pressure systolic 138 mm Hg Sep, Blood pressure diastolic 80 mm Hg Sep, MEDICATIONS Medication SIG (Take, Route, Frequency, Duration) Notes Start Da te End Date Status Pravastatin Sodium Active Finasteride Active Omeprazole Active Amlodipine Besylate Activ e Paroxetine HCl Active Multivitamin Adults 50+ - Orally qd Active PROCEDURES No Information RESULTS No Results REASON FOR VISIT lesions MEDICAL (GENERAL) HISTORY Type Description Date Medical History HTN Medical History Hyperlipidemia Surgical History Cataract both eyes Surgical History left shoulder surgery Surgical History Umbilical hernia repair Surgical History Colonoscopy Goals Section No Information Health Concerns No Information MEDICAL EQUIPMENT No Information MENTAL STATUS No Information FUNCTIONAL STATUS No Information ASSESSMENTS Encounter Date Diagnosis Assessment Notes Treatment Notes Treatm ent Clinical Notes Sep, Seborrheic keratosis (ICD-10 - L82.1) Benign Lesion Counseling. The patient was extensively counseled regarding the benign nature of the lesion but that skin cancer may arise in this area just as it would anywhere on their skin. For that reason, return to clinic was recommended for any acute changes, itching, burning, or bleeding. The patient was educated that benign lesions are not a covered insurance benefit and treatment would be elective and cosmetic. They expressed understanding. Sep, Actinic keratosis (ICD-10 - L57.0) Cryotherapy x [1 ] number of sites. Lynn protocol was followed in compliance with [facility] standards. Patient was counseled regarding the indication for treatment (precancerous state for actinic keratosis or cosmetic reasons if done for seborrheic keratoses, acrochordons or warts) as well as, the method and expected results to include compromise of the skin barrier, bleeding, scarring/white area, redness at site, lesion recurrence, and pain. Patient was consented to the risks and benefits of the procedure and gave informed consent. Lesion(s) with locations as indicated in the physical examination were treated. Lesion(s) were treated with 2 cycles of liquid nitrogen with a thaw time of at least ten seconds. Therapy was applied in a pulsed fashion to minimize collateral tissue injury. Patient was instructed to use Vaseline ointment to the area(s) until healed. Patient tolerated the procedure well and left in stable condition. Pain before and after the procedure were assessed to not be significantly different than baseline. Sep, Nevus (ICD-10 - D22.9) Benign lesion. Benign lesion counseling performed. 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 Lynn protocol was followed in compliance with [facility] standards. Patient was counseled regarding the indication for treatment (precancerous state for actinic keratosis or cosmetic reasons if done for seborrheic keratoses, acrochordons or warts) as well as, the method and expected results to include compromise of the skin barrier, bleeding, scarring/white area, redness at site, lesion recurrence, and pain. Patient was consented to the risks and benefits of the procedure and gave informed consent. Lesion(s) with locations as indicated in the physical examination were treated. Lesion(s) were treated with 2 cycles of liquid nitrogen with a thaw time of at least ten seconds. Therapy was applied in a pulsed fashion to minimize collateral tissue injury. Patient was instructed to use Vaseline ointment to the area(s) until healed. Patient tolerated the procedure well and left in stable condition. Pain before and after the procedure were assessed to not be significantly different than baseline. Sep, Nevus of back (ICD-10 - D22.5) PLAN OF TREATMENT Treatment Notes Assessment Notes Clinical Notes Seborrheic keratosis Benign Lesion Couns eli. The patient was extensively counseled regarding the benign nature of the lesion but that skin cancer may arise in this area just as it would anywhere on their skin. For that reason, return to clinic was recommended for any acute changes, itching, burning, or bleeding. The patient was educated that benign lesions are not a covered insurance benefit and treatment would be elective and cosmetic. They expressed understanding. Actinic keratosis Cryotherapy x [1 ] n umber of sites. Lynn protocol was followed in compliance with [facility] standards. Patient was counseled regarding the indication for treatment (precancerous state for actinic keratosis or cosmetic reasons if done for seborrheic keratoses, acrochordons or warts) as well as, the method and expected results to include compromise of the skin barrier, bleeding, scarring/white area, redness at site, lesion recurrence, and pain. Patient was consented to the risks and benefits of the procedure and gave informed consent. Lesion(s) with locations as indicated in the physical examination were treated. Lesion(s) were treated with 2 cycles of liquid nitrogen with a thaw time of at least ten seconds. Therapy was applied in a pulsed fashion to minimize collateral tissue injury. Patient was instructed to use Vaseline ointment to the area(s) until healed. Patient tolerated the procedure well and left in stable condition. Pain before and after the procedure were assessed to not be significantly different than baseline. Nevus Benign lesion. Benig n lesion counseling performed. Other viral warts Cryotherapy x [1 ] n umber of sites. Lynn protocol was followed in compliance with [facility] standards. Patient was counseled regarding the indication for treatment (precancerous state for actinic keratosis or cosmetic reasons if done for seborrheic keratoses, acrochordons or warts) as well as, the method and expected results to include compromise of the skin barrier, bleeding, scarring/white area, redness at site, lesion recurrence, and pain. Patient was consented to the risks and benefits of the procedure and gave informed consent. Lesion(s) with locations as indicated in the physical examination were treated. Lesion(s) were treated with 2 cycles of liquid nitrogen with a thaw time of at least ten seconds. Therapy was applied in a pulsed fashion to minimize collateral tissue injury. Patient was instructed to use Vaseline ointment to the area(s) until healed. Patient tolerated the procedure well and left in stable condition. Pain before and after the procedure were assessed to not be significantly different than baseline. Next Appt Details Provider Name:Hsane Kamala Kyra, 09-26 01:00:00 PM, [address] [facility], 1st Floor, [place], [place], [id number], Insurance Providers Payer Name Payer Address Payer Phone Insured Name Patient Relati onship to Insured Coverage Start Date Coverage End Date [employer] [facility] CLAIM DIV [address] [facility] [phone] ARTURO CAICEDO MEDICARE Part A and B [address] [facility] [phone] ARTURO CAICEDO
--- OUTSIDE RECORDS SUMMARY | 2020-09-25 10:56 | CCD | Continuity of Care Document ---
Author Author Cali CASTRO M.D. Organization Unknown Address [address] [place] [phone] Phone [phone] Care Team Providers Care Line Dancer Name Role Phone Devon Jacques M.D. AUTM [phone] Problems Active Problems Provider Date Cirrhosis of liver Jose Castro M.D. Onset: 02/09/20 18 History of polyp of colon Emely Killian,A.N.PBjorn Onset: Alexandre's esophagus Emely KillianA.N.PBjorn Onset: 04/28/20 12 Family history of malignant neoplasm of gastrointestin al tract Emely KillianA.N.PBjorn Onset: 04/28/2012 Social History Type Date Description Comments Sex Unknown ETOH Use Occasionally consumes alcohol Tobacco Use Start: Unknown End: Unknown Patient is a former smoker Allergies, Adverse Reactions, Alerts Description No Known Drug Allergies Medications Active Medications SIG Qnty Indications Ordering Provide r Date Omeprazole 40mg Capsules DR Take 1 Capsule By Mouth Every Day In The Morning 90caps Jose pappas M.D. 06/28/2012 Finasteride 5mg Tablets Unknown Pravastatin Sodium 40mg Tablets Unknown Paroxetine HCL 20mg Tablets Unknown Amlodipine Besylate 5mg Tablets Take 1 Tablet By Mouth Once Daily Unknown Immunizations Description No Information Available Vital Signs Date Vital Result Comment 08/29/2020 1:54pm Height 70 inches 5'10" Weight 196.00 lb BP Systolic 139 mmHg BP Diastolic 85 mmHg Heart Rate 87 /min BMI (Body Mass Index) 28.1 kg/m2 Weight 88.906 kg Body Temperature 97.2 F 07/27/2019 11:51am Height 70 inches 5'10" Weight 193.00 lb BP Systolic 140 mmHg BP Diastolic 83 mmHg Heart Rate 74 /min BMI (Body Mass Index) 27.7 kg/m2 Weight 87.545 kg Results Description No Information Available Procedures Description No Information Available Medical Devices Description No Information Available Encounters Type Date Location Provider Dx Diagnosis Office Visit 08/29/2020 1:30p Main Office Jose Castro M.D. K 74.60 Unspecified cirrhosis of liver K76.6 Portal hypertension Assessments Date Code Description Provider 08/29/2020 K74.60 Unspecified cirrhosis of liver G edilma Castro M.D. 08/29/2020 K76.6 Portal hypertension Jose herrera M.D. Plan of Treatment Future Appointment(s):* 09/18/2020 8:00 am - [facility] at Main Office * 09/25/2020 12:45 pm - Jose Castro M.D. at Main Office 08/29/2020 - Jose Castro M.D.* K74.60 Unspecified cirrhosis of liver* Comments:* 70 yo wm who presents for a h/o alcohol use at least 4 beers daily almost his entire life. No alcohol now since January 31, 2018. Has abdominal distension for almost 2 yrs. No nausea, or vomiting. No melena, or hematesis. No abdominal pain. Has an umbilical hernia. Has weight loss. No beer. Has a 25 lbs. Last scope 2018. Plan:1. Egd to r/o varices.2. Informed consent. * K76.6 Portal hypertension* Comments:* As above. Functional Status Description No Information Available Mental Status Description No Information Available Referrals Description No Information Available
--- OUTSIDE RECORDS SUMMARY | 2020-09-25 10:56 | CCD | Continuity of Care Document ---
Author Author Lab Schedule, Cali Garcia Organization Unknown Address [address] [place] [id number] Phone Unavailable Care Team Providers Care Carrier Operator Name Role Phone Devon Jacques MD AUTM [phone] Deion Rodas MD AUTM [phone] Abbe Orellana JR, MD AUTM [phone] [facility] Dermatology AUTM [phone] [facility] AUTM [phone] Problems Active Problems Provider Date Gastroesophageal reflux [...] Diphtheri a) unspecified U-Flu Refused 05/01/2020 Influenza,Unspecified 92522 Refused 05/01/2020 Shingrix Zoster Vaccine (HZV), Recombinant, Subunit, Adjuvanted 17641 Refused 05/01/2020 Pneumovax 23 31403 Refused 05/01/2020 Prevnar 13 73542 Refused 07/21/2018 Influenza Virus Vaccine, Quadrivalent (Cciiv4), Derived From Cell 09713 Refused 07/21/2018 Pneumovax 23 98789 Refused 07/21/2018 Prevnar 13 48839 Refused 08/13/2017 Influenza Vaccin e Quadrivalent Preser/Antibiotic [...] Result H/L Range Note Prothrombin Time/Inr 08/28/2020 [facility] [address] [place], [place] [id number] [phone] Prothrombin Time 13.5 seconds Normal 12.5-14.3 Inr 1.01 Normal 1 Laboratory test finding 08/28/2020 [facility] [address] [place] [address] [phone] Alpha Fetoprotein Tumor Quant 3.4 NG/ML Normal <8 .1 2 Complete Blood Count 08/28/2020 [facility] Model Making Supervisor: [place] [address] [phone] WBC 1.8 x10*3/UL Low 4.1 - 10.9 [...] 2.0 - 7.8 Comprehensive Chem Profile 08/28/2020 [facility] l[facility] maria Saldaña Model Making Supervisor: [place] [address] [phone] Glucose 111 mg/dL High 74 - 99 [...] mL/min >60 6 Laboratory test finding 08/28/2020 [facility] luz maria campbell Model Making Supervisor: [place] [address] [phone] PSA 0.92 ng/mL <4.00 7 CBC With Differential 07/08/[address] [address] [phone] White Blood Count 2.6 10 Low 4.0-10.0 [...] 36.0-66.0 Lymph % 31.0 % Normal 24.0-44.0 [place] % 10.9 % High 0.0-5.0 Eos % 1.9 % Normal 0.0-3.0 Baso % 0.4 % Normal 0.0-1.0 Immature Granulocyte % 0.4 % Normal 0-3.0 Nucleated Red Blood Cell % 0.0 % Normal 0-0 Neutrophils # 1.4 10 Low 1.5-8.5 Lymph # 0.8 10 Low 1.5-5.0 [place] # 0.3 10 Normal 0.0-0.8 Eos # 0.1 10 Normal 0.0-0.5 Baso # 0.0 10 Normal 0.0-0.2 Laboratory test finding 07/08/[address] [address] [phone] Immature Platelet Fraction 16.4 % High 0.0-1 0.91 Prothrombin Time/Inr 07/08/2020 [facility] enter [address] [place] [address] [phone] Prothrombin Time 13.8 seconds Normal 12.5-14.3 Inr 1.04 Normal 8 Comprehensive Metabolic Profil 07/08/2020 [facility] [address] [place] [address] [phone] Glucose, Fasting 112 mg/dL High 70-100 Blood [...] Ratio 0.8 Normal Laboratory test finding 07/08/2020 [facility] [address] [place] [address] [phone] Alpha Fetoprotein Tumor Quant 2.5 NG/ML Normal <8 .1 10 Serum Protein Electrophoresis 05/16/[address] [address] [phone] Albumin % 54.5 % Low 55.8-66.1 Ixpqq-2-Zqsxprpt % 3.6 % Normal 2.9-4.9 Zphel-0-Eztqfqluj % 7.2 % Normal 7.1-11.8 Stxg-2-Fxvcubeuy % 5.7 % Normal 4.7-7.2 Orfd-2-Avurxuviv % 4.9 % Normal 3.2-6.5 Gamma Globulin % 24.1 % High 11.1-18.8 Albumin 4.80 GM/DL Normal 3.29-5.55 Cjkfd-2-Myamfldqq 0.32 GM/DL Normal 0.17-0.41 Iettz-7-Qsmxcxmhq 0.63 GM/DL Normal 0.42-0.99 Ffzi-1-Cuhkfwnfk 0.50 GM/DL Normal 0.28-0.60 Afor-0-Mvzunakau 0.43 GM/DL Normal 0.19-0.55 Gamma Globulins 2.12 GM/DL High 0.65-1.58 Total Protein 8.8 GM/DL High 6.4-8.2 Spep Interpretation SEE COMMENT Normal 11 Spe[facility] Pathologist Review REV'D BY Matteo LANZA <SEE NOTE> Normal 12 Immunotyping (Immunofixation) Serum (If 05/16/[address] [id number] [phone] Immunotyping Serum Igg ABNORMAL High Normal Immunotyping Serum [place] ABNORMAL High Normal It Serum Interpretation SEE COMMENT Normal 13 Its Pathologist Review REV'D BY Matteo LANZA <SEE NOTE> Normal 14 Comprehensive Metabolic Profil 05/16/[address] [id number] [phone] Glucose, Fasting 138 mg/dL High 70-100 Blood [...] Normal 3.2-5.2 Albumin/Globulin Ratio 0.8 Normal Free [place] & Lambda LT Chains 05/16/[address] [address] [phone] Free [place] Light Chains Serum 49.5 mg/L High 3. 3-19.4 Free Lambda Light Chains Serum 49.4 mg/L High 5.7-26.3 [place]/Lambda Ratio Serum 1.00 Normal 0.26-1.65 16 Laboratory test finding 05/16/[address] [address] [phone] Immature Platelet Fraction 18.1 % High 0.0-1 0.91 CBC With Differential 05/16/[address] [address] [phone] White Blood Count 2.5 10 Low 4.0-10.0 [...] 36.0-66.0 Lymph % 34.5 % Normal 24.0-44.0 [place] % 10.3 % High 0.0-5.0 Eos % 2.0 % Normal 0.0-3.0 Baso % 0.4 % Normal 0.0-1.0 Immature Granulocyte % 0.8 % Normal 0-3.0 Nucleated Red Blood Cell % 0.0 % Normal 0-0 Neutrophils # 1.3 10 Low 1.5-8.5 Lymph # 0.9 10 Low 1.5-5.0 [place] # 0.3 10 Normal 0.0-0.8 Eos # 0.1 10 Normal 0.0-0.5 Baso # 0.0 10 Normal 0.0-0.2 Laboratory test finding 04/30/[address] [address] [phone] Ammonia 22 uMOL/L Normal <32 Ferritin 24 NG/ML Low 26-388 Alpha Fetoprotein Tumor Quant 4.1 NG/ML Normal <8.1 18 Laboratory test finding 04/30/2020 [facility] [address] [place] [address] [phone] Alpha Fetoprotein Tumor Quant 4.1 NG/ML Normal <8 .1 19 Complete Blood Count 04/30/2020 [facility] luz maria acosta Model Making Supervisor: [place] [address] [phone] WBC 2.3 x10*3/UL Low 4.1 - 10.9 [...] 2.0 - 7.8 Comprehensive Chem Profile 04/30/2020 [facility] maria cash Model Making Supervisor: [place] [address] [phone] Glucose 115 mg/dL High 74 - 99 [...] 60 mL/min >60 22 Lipid Profile 04/30/2020 [facility] Model Making Supervisor: Dr Igor Salguero [place], [place] [address] [phone] Cholesterol 166 mg/dL 131 - 200 Triglycerides [...] AFP ASSAY IS PERFORMED O N THE [employer] BY CHEMILUMINESCENCE AND SHOULD NOT BE COMPARED [...] LITTLE GFR LEFT ESRD GFR <15 ON INSULATION BATTING MACHINE OPERATOR 7 This assay was performed on the [...] Little GFR Left ESRD GFR <15 on INSULATION BATTING MACHINE OPERATOR 10 THE AFP ASSAY IS PERFORMED O [...] Little GFR Left ESRD GFR <15 on INSULATION BATTING MACHINE OPERATOR 16 Performed at: - [facility] [id number] Model Making Supervisor: Olena Bolton MD, Phone: [phone] Scan Verified machine result s PLATELET [...] LITTLE GFR LEFT ESRD GFR <15 ON INSULATION BATTING MACHINE OPERATOR Procedures Date Code Description Status 07/29/2018 [id number] Diabetic Retinal Eye Exam Comple mahi 05/26/2018 [id number] Colonoscopy Completed 05/25/2018 [id number] Colonoscopy Completed 12/30/2016 [id number] Colonoscopy Completed 12/28/2016 [id number] Colonoscopy Completed 09/16/2016 [id number] Diabetic Retinal Eye Exam Comple mahi 09/17/2014 [id number] Colonoscopy Completed 05/04/2012 [id number] Colonoscopy Completed 07/07/2010 [id number] Colonoscopy Completed 05/28/2008 [id number] Colonoscopy Completed Medical Devices Description No Information [...]
--- OUTSIDE RECORDS SUMMARY | 2020-09-25 10:56 | CCD | Continuity of Care Document ---
Author Author Cali JACQUES M.D. Organization Unknown Address [address] [facility] [address] [place] [address] Phone [phone] Care Team Providers Care Drapery Estimator Name Role Phone Devon Jacques MD AUTM [phone] Deion Rodas MD AUTM [phone] Abbe Orellana JR, MD AUTM [phone] [facility] Dermatology AUTM [phone] [facility] AUTM [phone] Problems Active Problems Provider Date Gastroesophageal reflux [...] 1 Tablet By Mouth Once Every Day 90tabs Igor Salguero MD Pravastatin Sodium 40mg Tablets take one tablet by mouth every day 90tabs Devon Jacques M.D. 0 10/20/2011 Proscar 5mg Tablets take one tablet by mouth every day 90tabs Devon Jacques M.D. 07/02/2008 Medications Administered in Office Medication SIG Qnty Indications Ordering Provider Date Depo-Medrol Injection Injection Tremaine Peralta D.O. 09/11/2002 Immunizations CPT Code Status Date Vaccine Lot # [id number] Refused 05/01/2020 Td(Adult)(Tetanus, Diphtheri a) unspecified U-Flu Refused 05/01/2020 Influenza,Unspecified 21953 Refused 05/01/2020 Shingrix Zoster Vaccine (HZV), Recombinant, Subunit, Adjuvanted 77740 Refused 05/01/2020 Pneumovax 23 39458 Refused 05/01/2020 Prevnar 13 95572 Refused 07/21/2018 Influenza Virus Vaccine, Quadrivalent (Cciiv4), Derived From Cell 33277 Refused 07/21/2018 Pneumovax 23 89796 Refused 07/21/2018 Prevnar 13 57879 Refused 08/13/2017 Influenza Vaccin e Quadrivalent Preser/Antibiotic Free Im Use Vital Signs Date Vital Result Comment 08/29/2020 11:18am BP Systolic 148 mmHg BP Diastolic 72 mmHg BP Systolic Recheck 132 mmHg BP Diastolic Recheck 65 mmHg Heart Rate 78 /min Height 71 [...] Result H/L Range Note Prothrombin Time/Inr 08/28/2020 [facility] enter [address] [place] [address] [phone] Prothrombin Time 13.5 seconds Normal 12.5-14.3 Inr 1.01 Normal 1 Laboratory test finding 08/28/2020 [facility] [address] [place] [address] [phone] Alpha Fetoprotein Tumor Quant 3.4 NG/ML Normal <8 .1 2 Complete Blood Count 08/28/2020 [facility] luz maria acosta Parcel Contractor: [place] [address] [phone] WBC 1.8 x10*3/UL Low 4.1 - 10.9 [...] 2.0 - 7.8 Comprehensive Chem Profile 08/28/2020 [facility] l[facility] maria cash Parcel Contractor: [place] [address] [phone] Glucose 111 mg/dL High 74 - 99 [...] mL/min >60 6 Laboratory test finding 08/28/2020 [facility] luz maria campbell Parcel Contractor: [place] [address] [phone] PSA 0.92 ng/mL <4.00 7 CBC With Differential 07/08/[address] [address] [phone] White Blood Count 2.6 10 Low 4.0-10.0 [...] 36.0-66.0 Lymph % 31.0 % Normal 24.0-44.0 [place] % 10.9 % High 0.0-5.0 Eos % 1.9 % Normal 0.0-3.0 Baso % 0.4 % Normal 0.0-1.0 Immature Granulocyte % 0.4 % Normal 0-3.0 Nucleated Red Blood Cell % 0.0 % Normal 0-0 Neutrophils # 1.4 10 Low 1.5-8.5 Lymph # 0.8 10 Low 1.5-5.0 [place] # 0.3 10 Normal 0.0-0.8 Eos # 0.1 10 Normal 0.0-0.5 Baso # 0.0 10 Normal 0.0-0.2 Laboratory test finding 07/08/2020 [facility] [address] [place] [address] [phone] Immature Platelet Fraction 16.4 % High 0.0-1 0.91 Prothrombin Time/Inr 07/08/2020 [facility] enter [address] [place] [address] [phone] Prothrombin Time 13.8 seconds Normal 12.5-14.3 Inr 1.04 Normal 8 Comprehensive Metabolic Profil 07/08/[address] [address] [phone] Glucose, Fasting 112 mg/dL High 70-100 Blood [...] Ratio 0.8 Normal Laboratory test finding 07/08/[address] [address] [phone] Alpha Fetoprotein Tumor Quant 2.5 NG/ML Normal <8 .1 10 Serum Protein Electrophoresis 05/16/[address] [address] [phone] Albumin % 54.5 % Low 55.8-66.1 Wleoj-2-Deibqwvc % 3.6 % Normal 2.9-4.9 Ombbv-7-Lhhncgxga % 7.2 % Normal 7.1-11.8 Kims-8-Kltgbjhkr % 5.7 % Normal 4.7-7.2 Yqke-3-Aflgjvgpu % 4.9 % Normal 3.2-6.5 Gamma Globulin % 24.1 % High 11.1-18.8 Albumin 4.80 GM/DL Normal 3.29-5.55 Buqcy-6-Oqofjnrfc 0.32 GM/DL Normal 0.17-0.41 Ubcfv-2-Nehnrcqvp 0.63 GM/DL Normal 0.42-0.99 Lzfr-2-Svvkmzqrl 0.50 GM/DL Normal 0.28-0.60 Dzle-0-Djqdozrtc 0.43 GM/DL Normal 0.19-0.55 Gamma Globulins 2.12 GM/DL High 0.65-1.58 Total Protein 8.8 GM/DL High 6.4-8.2 Spep Interpretation SEE COMMENT Normal 11 Spe[facility] Pathologist Review REV'D BY Matteo LANZA <SEE NOTE> Normal 12 Immunotyping (Immunofixation) Serum (If 05/16/[address] [address] [phone] Immunotyping Serum Igg ABNORMAL High Normal Immunotyping Serum [place] ABNORMAL High Normal It Serum Interpretation SEE COMMENT Normal 13 Its Pathologist Review REV'D BY Matteo LANZA <SEE NOTE> Normal 14 Comprehensive Metabolic Profil 05/16/[address] [address] [phone] Glucose, Fasting 138 mg/dL High 70-100 Blood [...] Normal 3.2-5.2 Albumin/Globulin Ratio 0.8 Normal Free [place] & Lambda LT Chains 05/16/2020 [place] [address] [place] [address] [phone] Free [place] Light Chains Serum 49.5 mg/L High 3. 3-19.4 Free Lambda Light Chains Serum 49.4 mg/L High 5.7-26.3 [place]/Lambda Ratio Serum 1.00 Normal 0.26-1.65 16 Laboratory test finding 05/16/[address] [address] [phone] Immature Platelet Fraction 18.1 % High 0.0-1 0.91 CBC With Differential 05/16/[address] [address] [phone] White Blood Count 2.5 10 Low 4.0-10.0 [...] 36.0-66.0 Lymph % 34.5 % Normal 24.0-44.0 [place] % 10.3 % High 0.0-5.0 Eos % 2.0 % Normal 0.0-3.0 Baso % 0.4 % Normal 0.0-1.0 Immature Granulocyte % 0.8 % Normal 0-3.0 Nucleated Red Blood Cell % 0.0 % Normal 0-0 Neutrophils # 1.3 10 Low 1.5-8.5 Lymph # 0.9 10 Low 1.5-5.0 [place] # 0.3 10 Normal 0.0-0.8 Eos # 0.1 10 Normal 0.0-0.5 Baso # 0.0 10 Normal 0.0-0.2 Laboratory test finding 04/30/2020 [place] [address] [place] [address]244 [phone] Ammonia 22 uMOL/L Normal <32 Ferritin 24 NG/ML Low 26-388 Alpha Fetoprotein Tumor Quant 4.1 NG/ML Normal <8.1 18 Laboratory test finding 04/30/2020 [facility] [address] [place] [address] [phone] Alpha Fetoprotein Tumor Quant 4.1 NG/ML Normal <8 .1 19 Complete Blood Count 04/30/2020 [facility] Parcel Contractor: [place] [address] [phone] WBC 2.3 x10*3/UL Low 4.1 - 10.9 [...] 2.0 - 7.8 Comprehensive Chem Profile 04/30/2020 [facility] l[facility] maria cash Parcel Contractor: [place] [address] [phone] Glucose 115 mg/dL High 74 - 99 [...] 60 mL/min >60 22 Lipid Profile 04/30/2020 [facility] Parcel Contractor: [place] [address] [phone] Cholesterol 166 mg/dL 131 - 200 Triglycerides [...] AFP ASSAY IS PERFORMED O N THE [employer] BY CHEMILUMINESCENCE AND SHOULD NOT BE COMPARED [...] LITTLE GFR LEFT ESRD GFR <15 ON RISK CONTROL OFFICER 7 This assay was performed on the [employer] EXL using the B- Galactosidase/CPRG methodology and [...] Little GFR Left ESRD GFR <15 on RISK CONTROL OFFICER 10 THE AFP ASSAY IS PERFORMED O [...] Little GFR Left ESRD GFR <15 on RISK CONTROL OFFICER 16 Performed at: RN - [facility] [address] [id number] Parcel Contractor: Olena Bolton MD, Phone: [phone] 17 Scan Verified machine result s PLATELET [...] LITTLE GFR LEFT ESRD GFR <15 ON RISK CONTROL OFFICER Procedures Date Code Description Status 07/29/2018 [id number] Diabetic Retinal Eye Exam Comple mahi 05/26/2018 [id number] Colonoscopy Completed 05/25/2018 [id number] Colonoscopy Completed 12/30/2016 [id number] Colonoscopy Completed 12/28/2016 [id number] Colonoscopy Completed 09/16/2016 [id number] Diabetic Retinal Eye Exam [facility] 09/17/2014 [id number] Colonoscopy Completed 05/04/2012 [id number] Colonoscopy Completed 07/07/2010 [id number] Colonoscopy Completed 05/28/2008 [id number] Colonoscopy Completed Medical Devices Description No Information Available Encounters Type Date Location Provider Dx Diagnosis Office Visit 08/29/2020 11:00a [facility] Devon Jacques M.D. D69.6 Thrombocytopenia, unspecified I10 Essential (primary) hyperten scotty N40.0 Benign prostatic hyperplasia without lower urinry tract symp K74.60 Unspecified cirrhosis of dean er E78.00 Pure hypercholesterolemia, u nspecified F41.1 Generalized anxiety disorder R01.1 Cardiac murmur, unspecified D47.2 Monoclonal gammopathy K22.70 Alexandre's esophagus without dysplasia Z86.010 Personal history of colonic polyps Assessments Date Code Description Provider 08/29/2020 D69.6 Thrombocytopenia, unspecified [place] Jacques M.D. 08/29/2020 I10 Essential (primary) hypertension Devon Jacques M.D. 08/29/2020 N40.0 Benign prostatic hyp erplasia without lower urinary tract symptoms Devon Jacques M.D. 08/29/2020 K74.60 Unspecified cirrhosis of liver Radha ezra Jacques M.D. 08/29/2020 E78.00 Pure hypercholesterolemia, unspe cified Devon Jacques M.D. 08/29/2020 F41.1 Generalized anxiety disorder Moise Jacques M.D. 08/29/2020 R01.1 Cardiac murmur, unspecified Oanh Jacques M.D. 08/29/2020 D47.2 Monoclonal gammopathy Devno plunkett M.D. 08/29/2020 K22.70 Alexandre's esophagus without dysp lasia Devon Jacques M.D. 08/29/2020 Z86.010 Personal history of colonic poly ps Devon Jacques M.D. 08/28/2020 D69.6 Thrombocytopenia, unspecified [place] Jacques M.D. [...] unspe cified Lab Schedule Plan of Treatment Future Appointment(s):* 03/10/2021 8:20 am - Lab Schedule at [facility] * 03/11/2021 9:30 am - Deovn Jacques M.D. at [facility] 08/29/2020 - Devon Jacques M.D.* D69.6 Thrombocytopenia, unspecified * I10 Essential (primary) hypertension * N40.0 Benign prostatic hyperplasia without lower urinry tract symp * K74.60 Unspecified cirrhosis of liver * E78.00 Pure hypercholesterolemia, unspecified * F41.1 Generalized anxiety disorder * R01.1 Cardiac murmur, unspecified * D47.2 Monoclonal gammopathy * K22.70 Alexandre's esophagus without dysplasia * Z86.010 Personal history of colonic polyps * * Comments:* 1. Thrombocytopenia: Platelets are 38,000 on recent labs. WBC is low and Dr. Lopez is investigating it. We will monitor.2. Hypertension: On recheck was stable. We will continue current regimen and monitor.3. BPH: Generally doing well on Proscar, will continue and monitor.4. Cirrhosis of liver: Diagnosed in 2018. LFTs continues to be improved since he stopped drinking about 2 [address] ago[address] with [address] Castro and Dr. Guallpa in [place]. There is lack of follow up with them due to Covid. Patient will follow up appropriately.5. Hypercholesterolemia: Has done well with Pravastatin. We will check lipids at his next visit. He will continue current regimen and will monitor.6. Generalized anxiety disorder: Well controlled on Paxil at the present dose, will continue and monitor. 7. Cardiac murmur: Presence of aortic sclerosis on echo 2019. We will mon itor.8. Monoclonal gammopathy: He will continue to follow up with [facility] Oncology.9. Alexandre's esophagus: Recent EGD by Dr. Castro shows grade I esophageal varices. He will continue PPI. We will monitor.10. Personal history of colonic polyps: Last colonoscopy in May [address] Castro shows adenomatous polyps. He will follow up with Dr. Castro. We will monitor.Ongoing cares: I did give him printout of his updated labs today. He has received Pneumonia shot (per patient) at [facility] this year. I am going to see him again in 6 months with CMP, lipids, TSH and CBC. If he has new problems or issues sooner he will let us know. Medical Problem List:1. Hypertension2. Hyperlipidemia3. Generalized anxiety4. BPH5. Adenomatous polyps (05/2018 last c-scope, f/u Dr Castro)6. GERD with question of a history of Alexandre's, EGD's.7. Cirrhosis of the liver (dx 2018, no EtOH since 2018), follows with Dr. Castro & Dr Guallpa in [place] - lack of f/u with COVID to catch up with each.8. Thrombocytopenia9. History of excess alcohol use - No alcohol since January 201810. Monoclonal Gammopathy - Sees [facility] Oncology (Dr Lopez)1. HX of SCC of right arm - sees [facility] Derm12. Murmur - aortic sclerosis on echo 2019 Functional Status Description No Information Available Mental Status Description No Information Available Referrals Description No Information Available
--- OUTSIDE RECORDS SUMMARY | 2020-09-25 10:57 | CCD | Continuity of Care Document ---
Author Author Lab Schedule, Cali Garcia Organization Unknown Address [address] [place] [phone] Phone Unavailable Care Team Providers Care Sail Lay Out Worker Name Role Phone Devon Jacques MD AUTM [phone] Deion Rodas MD AUTM [phone] Abbe Orellana JR, MD AUTM [phone] [facility] AUTM [phone] [facility] AUTM [phone] Problems Active Problems Provider Date Gastroesophageal reflux [...] Diphtheri a) unspecified U-Flu Refused 05/01/2020 Influenza,Unspecified 60425 Refused 05/01/2020 Shingrix Zoster Vaccine (HZV), Recombinant, Subunit, Adjuvanted 05509 Refused 05/01/2020 Pneumovax 23 30732 Refused 05/01/2020 Prevnar 13 24718 Refused 07/21/2018 Influenza Virus Vaccine, Quadrivalent (Cciiv4), Derived From Cell 88715 Refused 07/21/2018 Pneumovax 23 26085 Refused 07/21/2018 Prevnar 13 21815 Refused 08/13/2017 Influenza Vaccin e Quadrivalent Preser/Antibiotic Free Im Use Vital Signs Date Vital Result Comment 05/01/2020 9:02am BP Systolic 122 mmHg BP Diastolic 72 mmHg Heart Rate 74 /min Height 71 inches 5'11" Weight 192.12 lb O2 % BldC Oximetry 98 % RM Air BMI (Body Mass Index) 26.8 kg/m2 10/27/2019 9:30am BP Systolic 142 mmHg BP Diastolic 78 mmHg Heart Rate 70 /min Height 71 inches 5'11" Weight 194.00 lb BMI (Body Mass Index) 27.1 kg/m2 Results Test Acquired Date Facility Test Result H/L Range Note CBC With Differential 07/08/2020 [facility] [address] [place] [address] [phone] White Blood Count 2.6 10 Low 4.0-10.0 [...] 36.0-66.0 Lymph % 31.0 % Normal 24.0-44.0 [place] % 10.9 % High 0.0-5.0 Eos % 1.9 % Normal 0.0-3.0 Baso % 0.4 % Normal 0.0-1.0 Immature Granulocyte % 0.4 % Normal 0-3.0 Nucleated Red Blood Cell % 0.0 % Normal 0-0 Neutrophils # 1.4 10 Low 1.5-8.5 Lymph # 0.8 10 Low 1.5-5.0 [place] # 0.3 10 Normal 0.0-0.8 Eos # 0.1 10 Normal 0.0-0.5 Baso # 0.0 10 Normal 0.0-0.2 Laboratory test finding 07/08/2020 [facility] [address] [place] [address] [phone] Immature Platelet Fraction 16.4 % High 0.0-1 0.91 Prothrombin Time/Inr 07/08/2020 [facility] enter [address] [place] [address] [phone] Prothrombin Time 13.8 seconds Normal 12.5-14.3 Inr 1.04 Normal 1 Comprehensive Metabolic Profil 07/08/2020 [facility] [address] [place] [address] [phone] Glucose, Fasting 112 mg/dL High 70-100 Blood Urea Nitrogen 11 mg/dL Normal 7-18 Creatinine For GFR 0.83 mg/dL Normal 0.70-1.30 Glomerular Filtration Rate > 60.0 Normal >42 2 Sodium Level 139 mEq/L Normal 136-145 Potassium [...] Ratio 0.8 Normal Laboratory test finding 07/08/[address] [address] [phone] Alpha Fetoprotein Tumor Quant 2.5 NG/ML Normal <8 .1 3 CBC With Differential 05/16/[address] [address] [phone] White Blood Count 2.5 10 Low 4.0-10.0 Red Blood Count 4.44 10 Normal 4.30-6.10 Hemoglobin 13.8 g/dL Normal 13.5-17.5 Hematocrit 41.8 % Low 42.0-52.0 Mean Corpuscular Volume 94.1 fl Normal 80.0-96.0 Mean Corpuscular Hemoglobin 31.1 pg Normal 27.0-33.0 Mean Corpuscular HGB Conc 33.0 g/dL Normal 32.0-36.5 Red Cell Distribution Width 15.6 % High 11.5-14.5 Platelet Count, Automated 38 10 Low 150-450 4 Neutrophils % 52.0 % Normal 36.0-66.0 Lymph % 34.5 % Normal 24.0-44.0 [place] % 10.3 % High 0.0-5.0 Eos % 2.0 % Normal 0.0-3.0 Baso % 0.4 % Normal 0.0-1.0 Immature Granulocyte % 0.8 % Normal 0-3.0 Nucleated Red Blood Cell % 0.0 % Normal 0-0 Neutrophils # 1.3 10 Low 1.5-8.5 Lymph # 0.9 10 Low 1.5-5.0 [place] # 0.3 10 Normal 0.0-0.8 Eos # 0.1 10 Normal 0.0-0.5 Baso # 0.0 10 Normal 0.0-0.2 Laboratory test finding 05/16/[address] [address] [phone] Immature Platelet Fraction 18.1 % High 0.0-1 0.91 Free [place] & Lambda LT Chains 05/16/[address] [address] [phone] Free [place] Light Chains Serum 49.5 mg/L High 3. 3-19.4 Free Lambda Light Chains Serum 49.4 mg/L High 5.7-26.3 [place]/Lambda Ratio Serum 1.00 Normal 0.26-1.65 5 Comprehensive Metabolic Profil 05/16/[address] [address] [phone] Glucose, Fasting 138 mg/dL High 70-100 Blood Urea Nitrogen 9 mg/dL Normal 7-18 Creatinine For GFR 0.78 mg/dL Normal 0.70-1.30 Glomerular Filtration Rate > 60.0 Normal >42 6 Sodium Level 139 mEq/L Normal 136-145 Potassium [...] GM/DL Normal 3.2-5.2 Albumin/Globulin Ratio 0.8 Normal Immunotyping (Immunofixation) Serum (If 05/16/[address] [address] [phone] Immunotyping Serum [place]gg ABNORMAL High Normal Immunotyping Serum [place] ABNORMAL High Normal It Serum Interpretation SEE COMMENT Normal 7 Its Pathologist Review REV'D BY Matteo LANZA <SEE NOTE> Normal 8 Serum Protein Electrophoresis 05/16/[address] [id number] [phone] Albumin % 54.5 % Low 55.8-66.1 Alrre-3-Knxgbqed % 3.6 % Normal 2.9-4.9 Tdpts-7-Uajpghdhp % 7.2 % Normal 7.1-11.8 Kkdm-3-Mbwruelyz % 5.7 % Normal 4.7-7.2 Fjfi-1-Jwgeicsyv % 4.9 % Normal 3.2-6.5 Gamma Globulin % 24.1 % High 11.1-18.8 Albumin 4.80 GM/DL Normal 3.29-5.55 Uobdq-0-Qqlqxywgs 0.32 GM/DL Normal 0.17-0.41 Bhpgm-6-Qvidhomgg 0.63 GM/DL Normal 0.42-0.99 Zurg-3-Dcavgyxzi 0.50 GM/DL Normal 0.28-0.60 Lbtt-8-Hfezdunie 0.43 GM/DL Normal 0.19-0.55 Gamma Globulins 2.12 GM/DL High 0.65-1.58 Total Protein 8.8 GM/DL High 6.4-8.2 Spep Interpretation SEE COMMENT Normal 9 Spep Pathologist Review REV'D BY Matteo LANZA <SEE NOTE> Normal 10 Laboratory test finding 04/30/[address] [address] [phone] Ammonia 22 uMOL/L Normal <32 Ferritin 24 NG/ML Low 26-388 Alpha Fetoprotein Tumor Quant 4.1 NG/ML Normal <8.1 11 Laboratory test finding 04/30/[address] [address] [phone] Alpha Fetoprotein Tumor Quant 4.1 NG/ML Normal <8 .1 12 Complete Blood Count 04/30/2020 [facility] luz maria acosta Safety Fire Boss: [place] [address] [phone] WBC 2.3 x10*3/UL Low 4.1 - 10.9 RBC 4.44 x10*6/UL 4.20 - 6.30 Hemoglobin 13.5 g/dL 12.0 - 18.0 Hematocrit 40.2 % 37.0 - 51.0 MCV 90.4 fL 80.0 - 97.0 MCH 30.4 pg 26.0 - 32.0 MCHC 33.6 g/dL 31.0 - 38.0 RDW 15.0 % High 11.6 - 13.7 PLT 34 x10*3/UL Low 140 - 440 13 MPV 10.8 FL 7.8 - 11.0 Lymph % 29.0 % 10.0 - 58.5 Mid % 8.8 % 1.7 - 9.3 Neut % 62.2 % 37.0 - 92.0 Lymph # 0.6 x10*3/UL 0.6 - 4.1 Mid # 0.3 x10*3/UL 0.1 - 0.6 Neut # 1.4 x10*3/UL Low 2.0 - 7.8 Comprehensive Chem Profile 04/30/2020 [facility], Safety Fire Boss: [place] [address] [phone] Glucose 115 mg/dL High 74 - 99 14 BUN 9 mg/dL 7 - 18 Creatinine [...] mL/min >60 GFR >= 60 mL/min >60 15 Lipid Profile 04/30/2020 [facility] , Safety Fire Boss: [place] [address] [phone] Cholesterol 166 mg/dL 131 - 200 Triglycerides [...] RISK) 2.5-3.5 RECURRENT MYOCARDIAL INFARCTION 2.5-3.5 2 Units are mL/min/1.73 m2 Chronic Kidney Disease Staging per NKF: Stage I & II GFR >=60 Normal to Mildly Decreased Stage III GFR 30-59 Moderately Decreased Stage IV GFR 15-29 Severely Decreased Stage V GFR <15 Very Little GFR Left ESRD GFR <15 on PRINTER MACHINE 3 THE AFP ASSAY IS PERFORMED O N [...] VALUES OBTAINED FROM SERIAL PATIENT SERUM VALUES. 4 Scan Verified machine result s PLATELET COUNT LESS THAN 100, AND NEW OCCURANCE OR 5 Performed at: - [facility] [address] [id number] Safety Fire Boss: Olena Bolton MD, Phone: [phone] Units are mL/min/1.73 m2 Chronic Kidney Disease Staging per NKF: Stage I & II GFR >=60 Normal to Mildly Decreased Stage III GFR 30-59 Moderately Decreased Stage IV GFR 15-29 Severely Decreased Stage V GFR <15 Very Little GFR Left ESRD GFR <15 on PRINTER MACHINE 7 IGG,KAPPA 8 REV'D BY Matteo ANGUIANO 9 ATYPICAL SHAPE OF GAMMA MONICA ON NOTED. UNABLE TO DEFINITIVELY DETERMINE THE PRESENCE OF ATYPICAL BANDS. SUGGEST FOLLOW-UP IN 6-9 MONTHS IF PATIENT'S SYMPTOMS WARRANT. 10 REV'D BY Matteo ANGUIANO 11 THE AFP ASSAY IS PERFORMED O N [...] VALUES OBTAINED FROM SERIAL PATIENT SERUM VALUES. 12 THE AFP ASSAY IS PERFORMED O N [...] VALUES OBTAINED FROM SERIAL PATIENT SERUM VALUES. 13 NOTE: RESULT VERIFIED. 14 100-125 mg/dL PRE-DIABET ES/FASTING >126 mg/dL DIABETES/FASTING 15 CHRONIC KIDNEY DISEASE STAGI NG PER NKF STAGE I & II GFR >= 60 NORMAL TO MILDLY DECREASED STAGE III GFR 30-59 MODERATELY DECREASED STAGE IV GFR 15-29 SEVERELY DECREASED STAGE V GFR <15 VERY LITTLE GFR LEFT ESRD GFR <15 ON PRINTER MACHINE Procedures Date Code Description Status 07/29/2018 985839120 Diabetic Retinal Eye Exam Comple mahi 05/26/2018 [id number] Colonoscopy Completed 05/25/2018 [id number] Colonoscopy Completed 12/30/2016 [id number] Colonoscopy Completed 12/28/2016 [id number] Colonoscopy Completed 09/16/2016 [id number] Diabetic Retinal Eye Exam Comple mahi 09/17/2014 [id number] Colonoscopy Completed 05/04/2012 [id number] Colonoscopy Completed 07/07/2010 [id number] Colonoscopy Completed 05/28/2008 [id number] Colonoscopy Completed Medical Devices Description No Information Available Encounters Description No Information Available Assessments Date Code Description Provider 05/01/2020 K74.60 Unspecified cirrhosis of liver J ezra Jacques M.D. 05/01/2020 D69.6 Thrombocytopenia, unspecified [place] [...] Lab Schedule Plan of Treatment Future Appointment(s):* 08/29/2020 11:00 am - Devon Jacques M.D. at [facility] 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
--- OUTSIDE RECORDS SUMMARY | 2020-09-25 10:57 | CCD | Continuity of Care Document ---
Author Author Lab Schedule, Cali Garcia Organization Unknown Address [address] [place] [address] Phone Unavailable Care Team Providers Care Hemp Fiber Taker Off Name Role Phone Devon Jacques MD AUTM [phone] Deion Rodas MD AUTM [phone] Abbe Orellana JR, MD AUTM [phone] [facility] AUTM [phone] [facility] AUTM [phone] Problems Active Problems Provider Date Gastroesophageal reflux [...] Diphtheri a) unspecified U-Flu Refused 05/01/2020 Influenza,Unspecified 06357 Refused 05/01/2020 Shingrix Zoster Vaccine (HZV), Recombinant, Subunit, Adjuvanted 22468 Refused 05/01/2020 Pneumovax 23 79856 Refused 05/01/2020 Prevnar 13 36292 Refused 07/21/2018 Influenza Virus Vaccine, Quadrivalent (Cciiv4), Derived From Cell 40566 Refused 07/21/2018 Pneumovax 23 36503 Refused 07/21/2018 Prevnar 13 64627 Refused 08/13/2017 Influenza Vaccin e Quadrivalent Preser/Antibiotic [...] Result H/L Range Note Prothrombin Time/Inr 08/28/2020 [facility] [address] [place], [place] [address] [phone] Prothrombin Time 13.5 seconds Normal 12.5-14.3 Inr 1.01 Normal 1 Laboratory test finding 08/28/2020 [facility] [address] [place] [address] [phone] Alpha Fetoprotein Tumor Quant 3.4 NG/ML Normal <8 .1 2 Complete Blood Count 08/28/2020 [facility] Live Source Operator: [place] [address] [phone] WBC 1.8 x10*3/UL Low 4.1 - 10.9 [...] 2.0 - 7.8 Comprehensive Chem Profile 08/28/2020 [facility] l[facility] maria Saldaña Live Source Operator: [place] [address] [phone] Glucose 111 mg/dL High 74 - 99 [...] mL/min >60 6 Laboratory test finding 08/28/2020 [facility] [employer] [facility] luz maria campbell Live Source Operator: [place] [address] [phone] PSA 0.92 ng/mL <4.00 7 CBC With Differential 07/08/[address] [address] [phone] White Blood Count 2.6 10 Low 4.0-10.0 [...] 36.0-66.0 Lymph % 31.0 % Normal 24.0-44.0 [place] % 10.9 % High 0.0-5.0 Eos % 1.9 % Normal 0.0-3.0 Baso % 0.4 % Normal 0.0-1.0 Immature Granulocyte % 0.4 % Normal 0-3.0 Nucleated Red Blood Cell % 0.0 % Normal 0-0 Neutrophils # 1.4 10 Low 1.5-8.5 Lymph # 0.8 10 Low 1.5-5.0 [place] # 0.3 10 Normal 0.0-0.8 Eos # 0.1 10 Normal 0.0-0.5 Baso # 0.0 10 Normal 0.0-0.2 Laboratory test finding 07/08/[address] [address] [phone] Immature Platelet Fraction 16.4 % High 0.0-1 0.91 Prothrombin Time/Inr 07/08/2020 [facility] enter [address] [place] [address] [phone] Prothrombin Time 13.8 seconds Normal 12.5-14.3 Inr 1.04 Normal 8 Comprehensive Metabolic Profil 07/08/2020 [facility] [address] [place] [address] [phone] Glucose, Fasting 112 mg/dL High 70-100 Blood [...] Ratio 0.8 Normal Laboratory test finding 07/08/2020 [facility] [address] [place] [address] [phone] Alpha Fetoprotein Tumor Quant 2.5 NG/ML Normal <8 .1 10 Serum Protein Electrophoresis 05/16/[address] [address] [phone] Albumin % 54.5 % Low 55.8-66.1 Liddf-6-Psduexno % 3.6 % Normal 2.9-4.9 Oswcs-8-Ikxbxwbmk % 7.2 % Normal 7.1-11.8 Pfwm-7-Gtfcqwmwh % 5.7 % Normal 4.7-7.2 Uhci-9-Mrykhutls % 4.9 % Normal 3.2-6.5 Gamma Globulin % 24.1 % High 11.1-18.8 Albumin 4.80 GM/DL Normal 3.29-5.55 Thvab-3-Cbfhnvzjx 0.32 GM/DL Normal 0.17-0.41 Tecns-7-Wbibazawx 0.63 GM/DL Normal 0.42-0.99 Wven-5-Xekinsjqo 0.50 GM/DL Normal 0.28-0.60 Clcd-2-Dccttdyvx 0.43 GM/DL Normal 0.19-0.55 Gamma Globulins 2.12 GM/DL High 0.65-1.58 Total Protein 8.8 GM/DL High 6.4-8.2 Spep Interpretation SEE COMMENT Normal 11 Spep Pathologist Review REV'D BY Matteo LANZA <SEE NOTE> Normal 12 Immunotyping (Immunofixation) Serum (If 05/16/[address] [address] [phone] Immunotyping Serum Igg ABNORMAL High Normal Immunotyping Serum [place] ABNORMAL High Normal It Serum Interpretation SEE COMMENT Normal 13 Its Pathologist Review REV'D BY Matteo LANZA <SEE NOTE> Normal 14 Comprehensive Metabolic Profil 05/16/[address] [id number] [phone] Glucose, Fasting 138 mg/dL High 70-100 Blood [...] Normal 3.2-5.2 Albumin/Globulin Ratio 0.8 Normal Free [place] & Lambda LT Chains 05/16/[address] [address] [phone] Free [place] Light Chains Serum 49.5 mg/L High 3. 3-19.4 Free Lambda Light Chains Serum 49.4 mg/L High 5.7-26.3 [place]/Lambda Ratio Serum 1.00 Normal 0.26-1.65 16 Laboratory test finding 05/16/[address] [address] [phone] Immature Platelet Fraction 18.1 % High 0.0-1 0.91 CBC With Differential 05/16/[address] [address] [phone] White Blood Count 2.5 10 Low 4.0-10.0 [...] 36.0-66.0 Lymph % 34.5 % Normal 24.0-44.0 [place] % 10.3 % High 0.0-5.0 Eos % 2.0 % Normal 0.0-3.0 Baso % 0.4 % Normal 0.0-1.0 Immature Granulocyte % 0.8 % Normal 0-3.0 Nucleated Red Blood Cell % 0.0 % Normal 0-0 Neutrophils # 1.3 10 Low 1.5-8.5 Lymph # 0.9 10 Low 1.5-5.0 [place] # 0.3 10 Normal 0.0-0.8 Eos # 0.1 10 Normal 0.0-0.5 Baso # 0.0 10 Normal 0.0-0.2 Laboratory test finding 04/30/[address] [address] [phone] Ammonia 22 uMOL/L Normal <32 Ferritin 24 NG/ML Low 26-388 Alpha Fetoprotein Tumor Quant 4.1 NG/ML Normal <8.1 18 Laboratory test finding 04/30/2020 [facility] [address] [place] [address] [phone] Alpha Fetoprotein Tumor Quant 4.1 NG/ML Normal <8 .1 19 Complete Blood Count 04/30/2020 [facility] [employer] luz maria acosta Live Source Operator: [place] [address] [phone] WBC 2.3 x10*3/UL Low 4.1 - 10.9 [...] 2.0 - 7.8 Comprehensive Chem Profile 04/30/2020 [facility] maria cash Live Source Operator: [place] [address] [phone] Glucose 115 mg/dL High 74 - 99 [...] 60 mL/min >60 22 Lipid Profile 04/30/2020 [facility] Live Source Operator: Dr Igor Salguero [place], [place] [address] [phone] Cholesterol 166 mg/dL 131 - 200 Triglycerides [...] AFP ASSAY IS PERFORMED O N THE [employer] BY CHEMILUMINESCENCE AND SHOULD NOT BE COMPARED [...] LITTLE GFR LEFT ESRD GFR <15 ON VEST MAKER 7 This assay was performed on the [...] Little GFR Left ESRD GFR <15 on VEST MAKER 10 THE AFP ASSAY IS PERFORMED O [...] Little GFR Left ESRD GFR <15 on VEST MAKER 16 Performed at: - [facility] [id number] Live Source Operator: Olena Bolton MD, Phone: [phone] Scan Verified machine result s PLATELET [...] LITTLE GFR LEFT ESRD GFR <15 ON VEST MAKER Procedures Date Code Description Status 07/29/2018 [id number] Diabetic Retinal Eye Exam Comple mahi 05/26/2018 [id number] Colonoscopy Completed 05/25/2018 [id number] Colonoscopy Completed 12/30/2016 [id number] Colonoscopy Completed 12/28/2016 [id number] Colonoscopy Completed 09/16/2016 [id number] Diabetic Retinal Eye Exam Comple mahi 09/17/2014 [id number] Colonoscopy Completed 05/04/2012 [id number] Colonoscopy Completed 07/07/2010 [id number] Colonoscopy Completed 05/28/2008 [id number] Colonoscopy Completed Medical Devices Description No Information [...] Jacques M.D. 05/01/2020 F41.1 Generalized anxiety disorder oMise Jacques M.D. 05/01/2020 R01.1 Cardiac murmur, unspecified [...]
--- OUTSIDE RECORDS SUMMARY | 2020-09-25 10:57 | CCD | Continuity of Care Document ---
Author Author Cali JACQUES M.D. Organization Unknown Address [address] [facility] [address] [place] [address] Phone [phone] Care Team Providers Care Forensic Scientist Name Role Phone Devon Jacques MD AUTM [phone] Deion Rodas MD AUTM [phone] Abbe Orellana JR, MD AUTM [phone] [facility] Dermatology AUTM [phone] [facility] AUTM [phone] Problems Active Problems Provider Date Gastroesophageal reflux [...] Diphtheri a) unspecified U-Flu Refused 05/01/2020 Influenza,Unspecified 91860 Refused 05/01/2020 Shingrix Zoster Vaccine (HZV), Recombinant, Subunit, Adjuvanted 76124 Refused 05/01/2020 Pneumovax 23 49523 Refused 05/01/2020 Prevnar 13 18430 Refused 07/21/2018 Influenza Virus Vaccine, Quadrivalent (Cciiv4), Derived From Cell 63876 Refused 07/21/2018 Pneumovax 23 07080 Refused 07/21/2018 Prevnar 13 15615 Refused 08/13/2017 Influenza Vaccin e Quadrivalent Preser/Antibiotic [...] H/L Range Note Prothrombin Time/Inr 08/28/2020 [facility] enter [address] [id number] [phone] Prothrombin Time 13.5 seconds Normal 12.5-14.3 Inr 1.01 Normal 1 Laboratory test finding 08/28/2020 [facility] [address] [place] [address] [phone] Alpha Fetoprotein Tumor Quant 3.4 NG/ML Normal <8 .1 2 Complete Blood Count 08/28/2020 [facility] [employer] [employer] [facility] Gas Pumping Station Helper: [place] [address] [phone] WBC 1.8 x10*3/UL Low 4.1 - 10.9 [...] 2.0 - 7.8 Comprehensive Chem Profile 08/28/2020 [facility] luz maria Saldaña Gas Pumping Station Helper: [place] [address] [phone] Glucose 111 mg/dL High 74 - 99 [...] mL/min >60 6 Laboratory test finding 08/28/2020 [facility] [employer] Super[employer] luz maria campbell Gas Pumping Station Helper: [place] [address] [phone] PSA 0.92 ng/mL <4.00 7 CBC With Differential 07/08/[address] [address] [phone] White Blood Count 2.6 10 Low 4.0-10.0 [...] 36.0-66.0 Lymph % 31.0 % Normal 24.0-44.0 [place] % 10.9 % High 0.0-5.0 Eos % 1.9 % Normal 0.0-3.0 Baso % 0.4 % Normal 0.0-1.0 Immature Granulocyte % 0.4 % Normal 0-3.0 Nucleated Red Blood Cell % 0.0 % Normal 0-0 Neutrophils # 1.4 10 Low 1.5-8.5 Lymph # 0.8 10 Low 1.5-5.0 [place] # 0.3 10 Normal 0.0-0.8 Eos # 0.1 10 Normal 0.0-0.5 Baso # 0.0 10 Normal 0.0-0.2 Laboratory test finding 07/08/[address] [address] [phone] Immature Platelet Fraction 16.4 % High 0.0-1 0.91 Prothrombin Time/Inr 07/08/2020 [facility] enter [address] [place] [address] [phone] Prothrombin Time 13.8 seconds Normal 12.5-14.3 Inr 1.04 Normal 8 Comprehensive Metabolic Profil 07/08/[address] [address] [phone] Glucose, Fasting 112 mg/dL High 70-100 Blood [...] Ratio 0.8 Normal Laboratory test finding 07/08/2020 [facility] [address] [place] [address] [phone] Alpha Fetoprotein Tumor Quant 2.5 NG/ML Normal <8 .1 10 Serum Protein Electrophoresis 05/16/[address] [address] [phone] Albumin % 54.5 % Low 55.8-66.1 Fcxfi-2-Zswsgscr % 3.6 % Normal 2.9-4.9 Kinse-5-Velxxrmuk % 7.2 % Normal 7.1-11.8 Pbmb-4-Goxcnjajp % 5.7 % Normal 4.7-7.2 Ctwq-7-Grjzaozyj % 4.9 % Normal 3.2-6.5 Gamma Globulin % 24.1 % High 11.1-18.8 Albumin 4.80 GM/DL Normal 3.29-5.55 Ronln-3-Qasrnczfd 0.32 GM/DL Normal 0.17-0.41 Odzma-6-Vsqfkvdov 0.63 GM/DL Normal 0.42-0.99 Dmxd-4-Bvjfeucgp 0.50 GM/DL Normal 0.28-0.60 Enby-7-Ekxvpagao 0.43 GM/DL Normal 0.19-0.55 Gamma Globulins 2.12 GM/DL High 0.65-1.58 Total Protein 8.8 GM/DL High 6.4-8.2 Spep Interpretation SEE COMMENT Normal 11 Spep Pathologist Review REV'D BY Karla LANZA <SEE NOTE> Normal 12 Immunotyping (Immunofixation) Serum (If 05/16/[address] [address] [phone] Immunotyping Serum [place] ABNORMAL High Normal Immunotyping Serum [place] ABNORMAL High Normal It Serum Interpretation SEE COMMENT Normal 13 Its Pathologist Review REV'D BY Karla LANZA <SEE NOTE> Normal 14 Comprehensive Metabolic Profil 05/16/[address] [address] [phone] Glucose, Fasting 138 mg/dL High 70-100 Blood [...] Normal 3.2-5.2 Albumin/Globulin Ratio 0.8 Normal Free [place] & Lambda LT Chains 05/16/2020 [place] [address] [phone] Free [place] Light Chains Serum 49.5 mg/L High 3. 3-19.4 Free Lambda Light Chains Serum 49.4 mg/L High 5.7-26.3 [place]/Lambda Ratio Serum 1.00 Normal 0.26-1.65 16 Laboratory test finding 05/16/[address] [address] [phone] Immature Platelet Fraction 18.1 % High 0.0-1 0.91 CBC With Differential 05/16/[address] [address] [phone] White Blood Count 2.5 10 Low 4.0-10.0 [...] 36.0-66.0 Lymph % 34.5 % Normal 24.0-44.0 [place] % 10.3 % High 0.0-5.0 Eos % 2.0 % Normal 0.0-3.0 Baso % 0.4 % Normal 0.0-1.0 Immature Granulocyte % 0.8 % Normal 0-3.0 Nucleated Red Blood Cell % 0.0 % Normal 0-0 Neutrophils # 1.3 10 Low 1.5-8.5 Lymph # 0.9 10 Low 1.5-5.0 [place] # 0.3 10 Normal 0.0-0.8 Eos # 0.1 10 Normal 0.0-0.5 Baso # 0.0 10 Normal 0.0-0.2 Laboratory test finding 04/30/2020 [place] 3303701 [phone] Ammonia 22 uMOL/L Normal <32 Ferritin 24 NG/ML Low 26-388 Alpha Fetoprotein Tumor Quant 4.1 NG/ML Normal <8.1 18 Laboratory test finding 04/30/2020 [facility] [address] [place] [address] [phone] Alpha Fetoprotein Tumor Quant 4.1 NG/ML Normal <8 .1 19 Complete Blood Count 04/30/2020 [facility] [employer] karla pc Gas Pumping Station Helper: [place] [address] [phone] WBC 2.3 x10*3/UL Low 4.1 - 10.9 [...] 2.0 - 7.8 Comprehensive Chem Profile 04/30/2020 [facility] luz maria cash Gas Pumping Station Helper: [place] [address] [phone] Glucose 115 mg/dL High 74 - 99 [...] 60 mL/min >60 22 Lipid Profile 04/30/2020 [facility] Gas Pumping Station Helper: [place] [address] [phone] Cholesterol 166 mg/dL 131 - 200 Triglycerides [...] AFP ASSAY IS PERFORMED O N THE [employer] BY CHEMILUMINESCENCE AND SHOULD NOT BE COMPARED [...] LITTLE GFR LEFT ESRD GFR <15 ON CIVIL RIGHTS REPRESENTATIVE 7 This assay was performed on the [email or web address] EXL using the B- Galactosidase/CPRG methodology and [...] Little GFR Left ESRD GFR <15 on CIVIL RIGHTS REPRESENTATIVE 10 THE AFP ASSAY IS PERFORMED O [...] IF PATIENT'S SYMPTOMS WARRANT. 12 REV'D BY Karla ANGUIANO 13 IGG,KAPPA 14 REV'D BY Karla ANGUIANO 15 Units are mL/min/1.73 m2 Chronic Kidney Disease Staging per NKF: Stage I & II GFR >=60 Normal to Mildly Decreased Stage III GFR 30-59 Moderately Decreased Stage IV GFR 15-29 Severely Decreased Stage V GFR <15 Very Little GFR Left ESRD GFR <15 on CIVIL RIGHTS REPRESENTATIVE 16 Performed at: RN - [facility] [address] [id number] Gas Pumping Station Helper: Olena Bolton MD, Phone: [phone] 17 Scan Verified machine result s PLATELET COUNT LESS THAN 100, AND NEW OCCURANCE OR 18 THE AFP ASSAY IS PERFORMED O N THE [employer] CENTAUR BY CHEMILUMINESCENCE AND SHOULD NOT BE [...] ASSAY IS PERFORMED O N THE SIEMENS [employer] BY CHEMILUMINESCENCE AND SHOULD NOT BE COMPARED [...] LITTLE GFR LEFT ESRD GFR <15 ON CIVIL RIGHTS REPRESENTATIVE Procedures Date Code Description Status 07/29/2018 [id number] Diabetic Retinal Eye Exam Comple mahi 05/26/2018 [id number] Colonoscopy Completed 05/25/2018 [id number] Colonoscopy Completed 12/30/2016 [id number] Colonoscopy Completed 12/28/2016 [id number] Colonoscopy Completed 09/16/2016 [id number] Diabetic Retinal Eye Exam [facility] 09/17/2014 [id number] Colonoscopy Completed 05/04/2012 [id number] Colonoscopy Completed 07/07/2010 [id number] Colonoscopy Completed 05/28/2008 [id number] Colonoscopy Completed Medical Devices Description No Information [...]
--- OUTSIDE RECORDS SUMMARY | 2020-09-25 10:57 | CCD | Continuity of Care Document ---
Author Organization Unknown Address Unknown Phone Unavailable Care Team Providers Care Bridges Supervisor Name Role Phone Devon Jacques MD AUTM [phone] Deion Rodas MD AUTM [phone] Abbe Orellana JR, MD AUTM [phone] [facility] Dermatology AUTM [phone] [facility] AUTM [phone] Problems Active Problems Provider Date Gastroesophageal reflux [...] Diphtheri a) unspecified U-Flu Refused 05/01/2020 Influenza,Unspecified 97814 Refused 05/01/2020 Shingrix Zoster Vaccine (HZV), Recombinant, Subunit, Adjuvanted 34317 Refused 05/01/2020 Pneumovax 23 68524 Refused 05/01/2020 Prevnar 13 60863 Refused 07/21/2018 Influenza Virus Vaccine, Quadrivalent (Cciiv4), Derived From Cell 39092 Refused 07/21/2018 Pneumovax 23 44851 Refused 07/21/2018 Prevnar 13 82898 Refused 08/13/2017 Influenza Vaccin e Quadrivalent Preser/Antibiotic [...] Result H/L Range Note Prothrombin Time/Inr 08/28/2020 [facility] [address] [place] [address] [phone] Prothrombin Time 13.5 seconds Normal 12.5-14.3 Inr 1.01 Normal 1 Laboratory test finding 08/28/2020 [facility] [address] [place] [address] [phone] Alpha Fetoprotein Tumor Quant 3.4 NG/ML Normal <8 .1 2 Complete Blood Count 08/28/2020 [facility] [employer] [facility] luz maria acosta Visiting Teacher: [place] [address] [phone] WBC 1.8 x10*3/UL Low 4.1 - 10.9 [...] 2.0 - 7.8 Comprehensive Chem Profile 08/28/2020 [facility] maria cash Visiting Teacher: [place] [address] [phone] Glucose 111 mg/dL High 74 - 99 [...] mL/min >60 6 Laboratory test finding 08/28/2020 [facility] [employer] luz maria campbell Visiting Teacher: [place] [address] [phone] PSA 0.92 ng/mL <4.00 7 CBC With Differential 07/08/[address] [address] [phone] White Blood Count 2.6 10 Low 4.0-10.0 [...] 36.0-66.0 Lymph % 31.0 % Normal 24.0-44.0 [place] % 10.9 % High 0.0-5.0 Eos % 1.9 % Normal 0.0-3.0 Baso % 0.4 % Normal 0.0-1.0 Immature Granulocyte % 0.4 % Normal 0-3.0 Nucleated Red Blood Cell % 0.0 % Normal 0-0 Neutrophils # 1.4 10 Low 1.5-8.5 Lymph # 0.8 10 Low 1.5-5.0 [place] # 0.3 10 Normal 0.0-0.8 Eos # 0.1 10 Normal 0.0-0.5 Baso # 0.0 10 Normal 0.0-0.2 Laboratory test finding 07/08/2020 [facility] [address] [place] [address] [phone] Immature Platelet Fraction 16.4 % High 0.0-1 0.91 Prothrombin Time/Inr 07/08/2020 [facility] enter [address] [place] [address] [phone] Prothrombin Time 13.8 seconds Normal 12.5-14.3 Inr 1.04 Normal 8 Comprehensive Metabolic Profil 07/08/[address] [address] [phone] Glucose, Fasting 112 mg/dL High 70-100 Blood [...] Ratio 0.8 Normal Laboratory test finding 07/08/[address] [address] [phone] Alpha Fetoprotein Tumor Quant 2.5 NG/ML Normal <8 .1 10 Serum Protein Electrophoresis 05/16/[address] [address] [phone] Albumin % 54.5 % Low 55.8-66.1 Hiyba-3-Pdgeplvl % 3.6 % Normal 2.9-4.9 Vozqi-0-Ffqgfjapb % 7.2 % Normal 7.1-11.8 Wspn-9-Xisyzfggy % 5.7 % Normal 4.7-7.2 Wdne-3-Ixnqjinll % 4.9 % Normal 3.2-6.5 Gamma Globulin % 24.1 % High 11.1-18.8 Albumin 4.80 GM/DL Normal 3.29-5.55 Ickca-4-Istxmybod 0.32 GM/DL Normal 0.17-0.41 Bpqol-2-Sewdeloey 0.63 GM/DL Normal 0.42-0.99 Vmdm-8-Irpjvmxda 0.50 GM/DL Normal 0.28-0.60 Vorg-0-Gcjvlzjjp 0.43 GM/DL Normal 0.19-0.55 Gamma Globulins 2.12 GM/DL High 0.65-1.58 Total Protein 8.8 GM/DL High 6.4-8.2 Spep Interpretation SEE COMMENT Normal 11 Spep Pathologist Review REV'D BY Matteo LANZA <SEE NOTE> Normal 12 Immunotyping (Immunofixation) Serum (If 05/16/[address] [address] [phone] Immunotyping Serum Igg ABNORMAL High Normal Immunotyping Serum [place] ABNORMAL High Normal It Serum Interpretation SEE COMMENT Normal 13 Its Pathologist Review REV'D BY Matteo LANZA <SEE NOTE> Normal 14 Comprehensive Metabolic Profil 05/16/[address] [address] [phone] Glucose, Fasting 138 mg/dL High 70-100 Blood [...] Normal 3.2-5.2 Albumin/Globulin Ratio 0.8 Normal Free [place] & Lambda LT Chains 05/16/[address] [address] [phone] Free [place] Light Chains Serum 49.5 mg/L High 3. 3-19.4 Free Lambda Light Chains Serum 49.4 mg/L High 5.7-26.3 [place]/Lambda Ratio Serum 1.00 Normal 0.26-1.65 16 Laboratory test finding 05/16/[address] [address] [phone] Immature Platelet Fraction 18.1 % High 0.0-1 0.91 CBC With Differential 05/16/[address] [address] [phone] White Blood Count 2.5 10 Low 4.0-10.0 [...] 36.0-66.0 Lymph % 34.5 % Normal 24.0-44.0 [place] % 10.3 % High 0.0-5.0 Eos % 2.0 % Normal 0.0-3.0 Baso % 0.4 % Normal 0.0-1.0 Immature Granulocyte % 0.8 % Normal 0-3.0 Nucleated Red Blood Cell % 0.0 % Normal 0-0 Neutrophils # 1.3 10 Low 1.5-8.5 Lymph # 0.9 10 Low 1.5-5.0 [place] # 0.3 10 Normal 0.0-0.8 Eos # 0.1 10 Normal 0.0-0.5 Baso # 0.0 10 Normal 0.0-0.2 Laboratory test finding 04/30/[address] [address] [phone] Ammonia 22 uMOL/L Normal <32 Ferritin 24 NG/ML Low 26-388 Alpha Fetoprotein Tumor Quant 4.1 NG/ML Normal <8.1 18 Laboratory test finding 04/30/2020 [facility] [address] [place] [address] [phone] Alpha Fetoprotein Tumor Quant 4.1 NG/ML Normal <8 .1 19 Complete Blood Count 04/30/2020 [facility] [employer] [facility] luz maria acosta Visiting Teacher: [place] [address] [phone] WBC 2.3 x10*3/UL Low 4.1 - 10.9 [...] 2.0 - 7.8 Comprehensive Chem Profile 04/30/2020 [facility] l[facility] maria Saldaña Visiting Teacher: [place] [address] [phone] Glucose 115 mg/dL High 74 - 99 [...] 60 mL/min >60 22 Lipid Profile 04/30/2020 [facility] Visiting Teacher: [place] [address] [phone] Cholesterol 166 mg/dL 131 - 200 Triglycerides [...] AFP ASSAY IS PERFORMED O N THE [employer] BY CHEMILUMINESCENCE AND SHOULD NOT BE COMPARED [...] LITTLE GFR LEFT ESRD GFR <15 ON EARLY CHILDHOOD TEACHER 7 This assay was performed on the Siemens invendo medical EXL using the B- Galactosidase/CPRG methodology and [...] Little GFR Left ESRD GFR <15 on EARLY CHILDHOOD TEACHER 10 THE AFP ASSAY IS PERFORMED O [...] IF PATIENT'S SYMPTOMS WARRANT. 12 REV'D BY S HAGHIR 13 IGG,KAPPA 14 REV'D BY S HAGHIR 15 Units are mL/min/1.73 m2 Chronic Kidney Disease Staging per NKF: Stage I & II GFR >=60 Normal to Mildly Decreased Stage III GFR 30-59 Moderately Decreased Stage IV GFR 15-29 Severely Decreased Stage V GFR <15 Very Little GFR Left ESRD GFR <15 on EARLY CHILDHOOD TEACHER 16 Performed at: - [facility] [address] [id number] Visiting Teacher: Olena Bolton MD, Phone: [phone] 17 Scan Verified machine result s PLATELET [...] LITTLE GFR LEFT ESRD GFR <15 ON EARLY CHILDHOOD TEACHER Procedures Date Code Description Status 07/29/2018 [id number] Diabetic Retinal Eye Exam Comple mahi 05/26/2018 [id number] Colonoscopy Completed 05/25/2018 [id number] Colonoscopy Completed 12/30/2016 [id number] Colonoscopy Completed 12/28/2016 [id number] Colonoscopy Completed 09/16/2016 [id number] Diabetic Retinal Eye Exam Comple mahi 09/17/2014 [id number] Colonoscopy Completed 05/04/2012 [id number] Colonoscopy Completed 07/07/2010 [id number] Colonoscopy Completed 05/28/2008 [id number] Colonoscopy Completed Medical Devices Description No Information [...] Schedule 05/01/2020 K74.60 Unspecified cirrhosis of liver J ezra Jacques M.D. 05/01/2020 D69.6 Thrombocytopenia, unspecified [place] Jacques M.D. 05/01/2020 E78.00 Pure hypercholesterolemia, unspe cified Devon Jacques M.D. 05/01/2020 I10 Essential (primary) hypertension Devon Jacques M.D. 05/01/2020 N40.0 Benign prostatic hyperplasia wit hout lower urinary tract sym Devon Jacques M.D. 05/01/2020 F41.1 Generalized anxiety disorder Miose Jacuqes M.D. 05/01/2020 R01.1 Cardiac murmur, unspecified Oanh [...] Schedule 04/30/2020 K74.60 Unspecified cirrhosis of liver Radha Jacques M.D. 04/30/2020 K74.60 Unspecified cirrhosis of [...]
--- OUTSIDE RECORDS SUMMARY | 2020-09-25 10:57 | CCD | Continuity of Care Document ---
Author Author Cali JACQUES M.D. Organization Unknown Address [address] [facility] [address] [place] [address] Phone [phone] Care Team Providers Care Otm Consultant Name Role Phone Devon Jacques MD AUTM [phone] Deion Rodas MD AUTM [phone] Abbe Orellana JR, MD AUTM [phone] [facility] Dermatology AUTM [phone] [facility] AUTM [phone] Problems Active Problems Provider Date Gastroesophageal reflux [...] Diphtheri a) unspecified U-Flu Refused 05/01/2020 Influenza,Unspecified 40032 Refused 05/01/2020 Shingrix Zoster Vaccine (HZV), Recombinant, Subunit, Adjuvanted 81472 Refused 05/01/2020 Pneumovax 23 40888 Refused 05/01/2020 Prevnar 13 11146 Refused 07/21/2018 Influenza Virus Vaccine, Quadrivalent (Cciiv4), Derived From Cell 25626 Refused 07/21/2018 Pneumovax 23 45042 Refused 07/21/2018 Prevnar 13 78018 Refused 08/13/2017 Influenza Vaccin e Quadrivalent Preser/Antibiotic [...] Result H/L Range Note Prothrombin Time/Inr 08/28/2020 [facility] enter [address] [address]2314 [phone] Prothrombin Time 13.5 seconds Normal 12.5-14.3 Inr 1.01 Normal 1 Laboratory test finding 08/28/2020 [facility] [address] [place] [address] [phone] Alpha Fetoprotein Tumor Quant 3.4 NG/ML Normal <8 .1 2 Complete Blood Count 08/28/2020 [facility] [employer] National Business Director: [place] [address] [phone] WBC 1.8 x10*3/UL Low 4.1 - 10.9 [...] 2.0 - 7.8 Comprehensive Chem Profile 08/28/2020 [facility] luz maria Saldaña National Business Director: [place] [address] [phone] Glucose 111 mg/dL High 74 - 99 [...] mL/min >60 6 Laboratory test finding 08/28/2020 [facility] [employer] luz maria campbell National Business Director: [place] [address] [phone] PSA 0.92 ng/mL <4.00 7 CBC With Differential 07/08/[address] [address] [phone] White Blood Count 2.6 10 Low 4.0-10.0 [...] 36.0-66.0 Lymph % 31.0 % Normal 24.0-44.0 [place] % 10.9 % High 0.0-5.0 Eos % 1.9 % Normal 0.0-3.0 Baso % 0.4 % Normal 0.0-1.0 Immature Granulocyte % 0.4 % Normal 0-3.0 Nucleated Red Blood Cell % 0.0 % Normal 0-0 Neutrophils # 1.4 10 Low 1.5-8.5 Lymph # 0.8 10 Low 1.5-5.0 [place] # 0.3 10 Normal 0.0-0.8 Eos # 0.1 10 Normal 0.0-0.5 Baso # 0.0 10 Normal 0.0-0.2 Laboratory test finding 07/08/[address] [address] [phone] Immature Platelet Fraction 16.4 % High 0.0-1 0.91 Prothrombin Time/Inr 07/08/2020 [facility] enter [address] [place] [address] [phone] Prothrombin Time 13.8 seconds Normal 12.5-14.3 Inr 1.04 Normal 8 Comprehensive Metabolic Profil 07/08/[address] [address] [phone] Glucose, Fasting 112 mg/dL High 70-100 Blood [...] Ratio 0.8 Normal Laboratory test finding 07/08/2020 [facility] [address] [place] [address] [phone] Alpha Fetoprotein Tumor Quant 2.5 NG/ML Normal <8 .1 10 Serum Protein Electrophoresis 05/16/[address] [address] [phone] Albumin % 54.5 % Low 55.8-66.1 Wtord-2-Mjvlbztm % 3.6 % Normal 2.9-4.9 Wtvfw-3-Qvrvpbzcq % 7.2 % Normal 7.1-11.8 Sczt-6-Kgmixacrt % 5.7 % Normal 4.7-7.2 Ggjh-6-Ljjemichp % 4.9 % Normal 3.2-6.5 Gamma Globulin % 24.1 % High 11.1-18.8 Albumin 4.80 GM/DL Normal 3.29-5.55 Dtkdv-3-Vwxxonxcz 0.32 GM/DL Normal 0.17-0.41 Xhhzv-0-Xiptpccja 0.63 GM/DL Normal 0.42-0.99 Vmqc-3-Xphcmzvxi 0.50 GM/DL Normal 0.28-0.60 Hhal-2-Zcynenvxh 0.43 GM/DL Normal 0.19-0.55 Gamma Globulins 2.12 GM/DL High 0.65-1.58 Total Protein 8.8 GM/DL High 6.4-8.2 Spep Interpretation SEE COMMENT Normal 11 Spep Pathologist Review REV'D BY Karla LANZA <SEE NOTE> Normal 12 Immunotyping (Immunofixation) Serum (If 05/16/[address] [address] [phone] Immunotyping Serum Igg ABNORMAL High Normal Immunotyping Serum [place] ABNORMAL High Normal It Serum Interpretation SEE COMMENT Normal 13 Its Pathologist Review REV'D BY Karla LANZA <SEE NOTE> Normal 14 Comprehensive Metabolic Profil 05/16/[address] [address] [phone] Glucose, Fasting 138 mg/dL High 70-100 Blood [...] Normal 3.2-5.2 Albumin/Globulin Ratio 0.8 Normal Free [place] & Lambda LT Chains 05/16/2020 [place] [address] [phone] Free [place] Light Chains Serum 49.5 mg/L High 3. 3-19.4 Free Lambda Light Chains Serum 49.4 mg/L High 5.7-26.3 [place]/Lambda Ratio Serum 1.00 Normal 0.26-1.65 16 Laboratory test finding 05/16/[address] [address] [phone] Immature Platelet Fraction 18.1 % High 0.0-1 0.91 CBC With Differential 05/16/[address] [address] [phone] White Blood Count 2.5 10 Low 4.0-10.0 [...] 36.0-66.0 Lymph % 34.5 % Normal 24.0-44.0 [place] % 10.3 % High 0.0-5.0 Eos % 2.0 % Normal 0.0-3.0 Baso % 0.4 % Normal 0.0-1.0 Immature Granulocyte % 0.8 % Normal 0-3.0 Nucleated Red Blood Cell % 0.0 % Normal 0-0 Neutrophils # 1.3 10 Low 1.5-8.5 Lymph # 0.9 10 Low 1.5-5.0 [place] # 0.3 10 Normal 0.0-0.8 Eos # 0.1 10 Normal 0.0-0.5 Baso # 0.0 10 Normal 0.0-0.2 Laboratory test finding 04/30/2020 [place] [address]5601 [phone] Ammonia 22 uMOL/L Normal <32 Ferritin 24 NG/ML Low 26-388 Alpha Fetoprotein Tumor Quant 4.1 NG/ML Normal <8.1 18 Laboratory test finding 04/30/2020 [facility] [address] [place] [address] [phone] Alpha Fetoprotein Tumor Quant 4.1 NG/ML Normal <8 .1 19 Complete Blood Count 04/30/2020 [facility] [employer] [facility] pc National Business Director: [place] [address] [phone] WBC 2.3 x10*3/UL Low 4.1 - 10.9 [...] 2.0 - 7.8 Comprehensive Chem Profile 04/30/2020 [facility] maria cash National Business Director: [place] [address] [phone] Glucose 115 mg/dL High 74 - 99 [...] 60 mL/min >60 22 Lipid Profile 04/30/2020 [facility] National Business Director: [place] [address] [phone] Cholesterol 166 mg/dL 131 - 200 Triglycerides [...] AFP ASSAY IS PERFORMED O N THE [employer] BY CHEMILUMINESCENCE AND SHOULD NOT BE COMPARED [...] LITTLE GFR LEFT ESRD GFR <15 ON EMERGENCY MEDICAL SERVICES COORDINATOR 7 This assay was performed on the [employer] EXL using the B- Galactosidase/CPRG methodology and [...] Little GFR Left ESRD GFR <15 on EMERGENCY MEDICAL SERVICES COORDINATOR 10 THE AFP ASSAY IS PERFORMED O [...] Little GFR Left ESRD GFR <15 on EMERGENCY MEDICAL SERVICES COORDINATOR 16 Performed at: RN - [facility] [address] [id number] National Business Director: Olena Bolton MD, Phone: [phone] Scan Verified machine result s PLATELET COUNT LESS THAN 100, AND NEW OCCURANCE OR 18 THE AFP ASSAY IS PERFORMED O N THE [place] CENTAUR BY CHEMILUMINESCENCE AND SHOULD NOT BE [...] ASSAY IS PERFORMED O N THE [employer] BY CHEMILUMINESCENCE AND SHOULD NOT BE COMPARED [...] LITTLE GFR LEFT ESRD GFR <15 ON EMERGENCY MEDICAL SERVICES COORDINATOR Procedures Date Code Description Status 07/29/2018 [id number] Diabetic Retinal Eye Exam Comple mahi 05/26/2018 [id number] Colonoscopy Completed 05/25/2018 [id number] Colonoscopy Completed 12/30/2016 [id number] Colonoscopy Completed 12/28/2016 [id number] Colonoscopy Completed 09/16/2016 [id number] Diabetic Retinal Eye Exam [facility] 09/17/2014 [id number] Colonoscopy Completed 05/04/2012 [id number] Colonoscopy Completed 07/07/2010 [id number] Colonoscopy Completed 05/28/2008 [id number] Colonoscopy Completed Medical Devices Description No Information [...]
--- OUTSIDE RECORDS SUMMARY | 2020-09-25 10:57 | CCD | Continuity of Care Document ---
Author Author Cali JACQUES M.D. Organization Unknown Address [address] [facility] [address] [place] [address] Phone [phone] Care Team Providers Care Railway Track Worker Name Role Phone Devon Jacques MD AUTM [phone] Deion Rodas MD AUTM [phone] Abbe Orellana JR, MD AUTM [phone] [facility] AUTM [phone] [facility] AUTM [phone] Problems Active Problems Provider Date Gastroesophageal reflux [...] Diphtheri a) unspecified U-Flu Refused 05/01/2020 Influenza,Unspecified 76408 Refused 05/01/2020 Shingrix Zoster Vaccine (HZV), Recombinant, Subunit, Adjuvanted 28823 Refused 05/01/2020 Pneumovax 23 85570 Refused 05/01/2020 Prevnar 13 80434 Refused 07/21/2018 Influenza Virus Vaccine, Quadrivalent (Cciiv4), Derived From Cell 75421 Refused 07/21/2018 Pneumovax 23 07427 Refused 07/21/2018 Prevnar 13 69947 Refused 08/13/2017 Influenza Vaccin e Quadrivalent Preser/Antibiotic [...] H/L Range Note CBC With Differential 07/08/[address] [address] [phone] White Blood Count 2.6 10 Low 4.0-10.0 [...] 36.0-66.0 Lymph % 31.0 % Normal 24.0-44.0 [place] % 10.9 % High 0.0-5.0 Eos % 1.9 % Normal 0.0-3.0 Baso % 0.4 % Normal 0.0-1.0 Immature Granulocyte % 0.4 % Normal 0-3.0 Nucleated Red Blood Cell % 0.0 % Normal 0-0 Neutrophils # 1.4 10 Low 1.5-8.5 Lymph # 0.8 10 Low 1.5-5.0 [place] # 0.3 10 Normal 0.0-0.8 Eos # 0.1 10 Normal 0.0-0.5 Baso # 0.0 10 Normal 0.0-0.2 Laboratory test finding 07/08/2020 [facility] [address] [place] [address] [phone] Immature Platelet Fraction 16.4 % High 0.0-1 0.91 Prothrombin Time/Inr 07/08/2020 [facility] enter [address] [place] [address] [phone] Prothrombin Time 13.8 seconds Normal 12.5-14.3 Inr 1.04 Normal 1 Comprehensive Metabolic Profil 07/08/2020 [facility] [address] [place] [address] [phone] Glucose, Fasting 112 mg/dL High 70-100 Blood [...] Ratio 0.8 Normal Laboratory test finding 07/08/[address] [address] [phone] Alpha Fetoprotein Tumor Quant 2.5 NG/ML Normal <8 .1 3 CBC With Differential 05/16/[address] [address] [phone] White Blood Count 2.5 10 Low 4.0-10.0 [...] 36.0-66.0 Lymph % 34.5 % Normal 24.0-44.0 [place] % 10.3 % High 0.0-5.0 Eos % 2.0 % Normal 0.0-3.0 Baso % 0.4 % Normal 0.0-1.0 Immature Granulocyte % 0.8 % Normal 0-3.0 Nucleated Red Blood Cell % 0.0 % Normal 0-0 Neutrophils # 1.3 10 Low 1.5-8.5 Lymph # 0.9 10 Low 1.5-5.0 [place] # 0.3 10 Normal 0.0-0.8 Eos # 0.1 10 Normal 0.0-0.5 Baso # 0.0 10 Normal 0.0-0.2 Laboratory test finding 05/16/[address] [address] [phone] Immature Platelet Fraction 18.1 % High 0.0-1 0.91 Free [place] & Lambda LT Chains 05/16/[address] [address] [phone] Free [place] Light Chains Serum 49.5 mg/L High 3. 3-19.4 Free Lambda Light Chains Serum 49.4 mg/L High 5.7-26.3 [place]/Lambda Ratio Serum 1.00 Normal 0.26-1.65 5 Comprehensive Metabolic Profil 05/16/[address] [address] [phone] Glucose, Fasting 138 mg/dL High 70-100 Blood [...] 0.8 Normal Immunotyping (Immunofixation) Serum (If 05/16/[address] [address] [phone] Immunotyping Serum Igg ABNORMAL High Normal Immunotyping Serum [place] ABNORMAL High Normal It Serum Interpretation SEE COMMENT Normal 7 Its Pathologist Review REV'D BY Matteo LANZA <SEE NOTE> Normal 8 Serum Protein Electrophoresis 05/16/2020 [place] [address] [phone] Albumin % 54.5 % Low 55.8-66.1 Dyayc-1-Mqikbeua % 3.6 % Normal 2.9-4.9 Rdyjo-3-Bwdinurlj % 7.2 % Normal 7.1-11.8 Msvq-2-Ctqvmxvwc % 5.7 % Normal 4.7-7.2 Gobz-6-Zoqmtsxar % 4.9 % Normal 3.2-6.5 Gamma Globulin % 24.1 % High 11.1-18.8 Albumin 4.80 GM/DL Normal 3.29-5.55 Cainv-5-Oufxxbqav 0.32 GM/DL Normal 0.17-0.41 Cescr-9-Yzxbfvafo 0.63 GM/DL Normal 0.42-0.99 Naod-1-Ewfgzdxea 0.50 GM/DL Normal 0.28-0.60 Qlem-8-Uwmycpoxe 0.43 GM/DL Normal 0.19-0.55 Gamma Globulins 2.12 GM/DL High 0.65-1.58 Total Protein 8.8 GM/DL High 6.4-8.2 Spep Interpretation SEE COMMENT Normal 9 Spep Pathologist Review REV'D BY Matteo LANZA <SEE NOTE> Normal 10 Laboratory test finding 04/30/2020 [place] [address] [phone] Ammonia 22 uMOL/L Normal <32 Ferritin 24 NG/ML Low 26-388 Alpha Fetoprotein Tumor Quant 4.1 NG/ML Normal <8.1 11 Laboratory test finding 04/30/2020 [place] [id number] [phone] Alpha Fetoprotein Tumor Quant 4.1 NG/ML Normal <8 .1 12 Complete Blood Count 04/30/2020 [facility] Operator luz maria acosta Tax Analyst: [place] [address] [phone] WBC 2.3 x10*3/UL Low 4.1 - 10.9 [...] 2.0 - 7.8 Comprehensive Chem Profile 04/30/2020 [facility], Tax Analyst: [place] [address] [phone] Glucose 115 mg/dL High 74 - 99 [...] 60 mL/min >60 15 Lipid Profile 04/30/2020 [facility] Tax Analyst: [place] [address] [phone] Cholesterol 166 mg/dL 131 - 200 Triglycerides [...] Little GFR Left ESRD GFR <15 on OPENER TENDER 3 THE AFP ASSAY IS PERFORMED O [...] OCCURANCE OR 5 Performed at: - [facility] [address] [id number] Tax Analyst: Olena Bolton MD, Phone: [phone] Units are mL/min/1.73 m2 Chronic Kidney Disease Staging per NKF: Stage I & II GFR >=60 Normal to Mildly Decreased Stage III GFR 30-59 Moderately Decreased Stage IV GFR 15-29 Severely Decreased Stage V GFR <15 Very Little GFR Left ESRD GFR <15 on OPENER TENDER 7 IGG,KAPPA 8 REV'D BY Matteo ANGUIANO [...] ASSAY IS PERFORMED O N THE SIEMENS SpectralmindAUR BY CHEMILUMINESCENCE AND SHOULD NOT BE COMPARED [...] LITTLE GFR LEFT ESRD GFR <15 ON OPENER TENDER Procedures Date Code Description Status 07/29/2018 344685543 Diabetic Retinal Eye Exam Comple mahi 05/26/2018 [id number] Colonoscopy Completed 05/25/2018 [id number] Colonoscopy Completed 12/30/2016 [id number] Colonoscopy Completed 12/28/2016 [id number] Colonoscopy Completed 09/16/2016 [id number] Diabetic Retinal Eye Exam [place] [facility] 09/17/2014 [id number] Colonoscopy Completed 05/04/2012 [id number] Colonoscopy Completed 07/07/2010 [id number] Colonoscopy Completed 05/28/2008 [id number] Colonoscopy Completed Medical Devices Description No Information Available Encounters Description No Information Available Assessments Date Code Description Provider 05/01/2020 K74.60 Unspecified cirrhosis of liver aRdha Jacques M.D. 05/01/2020 D69.6 Thrombocytopenia, unspecified [place] [...] Lab Schedule Plan of Treatment Future Appointment(s):* 08/28/2020 7:50 am - Lab Schedule at [facility] * 08/29/2020 11:00 am - Devon Jacques M.D. at [facility] 05/01/2020 - Devon Jacques M.D.* K74.60 Unspecified [...]
--- OUTSIDE RECORDS SUMMARY | 2020-09-25 10:58 | CCD ---
Author Author [facility] Organization [facility] Address Unknown Phone Unavailable Care Team Providers Care Research Biologist Name Role Phone Matteo Castro MD Unavailable Unavailable Matteo Castro MD Unavailable Unavailable Matteo Castro MD Unavailable Unavailable Matteo Castro MD Unavailable Unavailable Matteo Castro MD Unavailable Unavailable Matteo Castro MD Unavailable Unavailable Matteo Castro MD Unavailable Unavailable Matteo Castro MD Unavailable Unavailable Matteo Castro MD Unavailable Unavailable Matteo Castro MD Unavailable Unavailable Matteo Castro MD Unavailable Unavailable Matteo Castro MD Unavailable Unavailable Matteo Castro MD Unavailable Unavailable Matteo Castro MD Unavailable Unavailable Matteo Castro MD Unavailable Unavailable Matteo Castro MD Unavailable Unavailable Matteo Castro MD Unavailable Unavailable Matteo Castro MD Unavailable Unavailable Matteo Castro MD Unavailable Unavailable Matteo Castro MD Unavailable Unavailable Matteo Castro MD Unavailable Unavailable Matteo Castro MD Unavailable Unavailable Matteo Castro MD Unavailable Unavailable Matteo Castro MD Unavailable Unavailable Matteo Castro MD Unavailable Unavailable Matteo Castro MD Unavailable Unavailable Matteo Castro MD Unavailable Unavailable Matteo Castro MD Unavailable Unavailable Matteo Castro MD Unavailable Unavailable Matteo Castro MD Unavailable Unavailable Matteo Castro MD Unavailable Unavailable Matteo Castro MD Unavailable Unavailable Matteo Castro MD Unavailable Unavailable Matteo Castro MD Unavailable Unavailable Matteo Castro MD Unavailable Unavailable Matteo Castro Jose URBANO Unavailable Unavailable Gloria S Jose URBANO Unavailable Unavailable Gloria S Jose URBANO Unavailable Unavailable Gloria S Jose URBANO Unavailable Unavailable Gloria S Jose URBANO Unavailable Unavailable Gloria S Jose URBANO Unavailable Unavailable Gloria S Jose URBANO Unavailable Unavailable Gloria S Jose URBANO Unavailable Unavailable Gloria S Jose URBANO Unavailable Unavailable Gloria S Jose MD Unavailable Unavailable Gloria S Jose URBANO Unavailable Unavailable Gloria S Jose URBANO Unavailable Unavailable Sarina Jacques MD Unavailable Unavailable Sarina Jacques MD Unavailable Unavailable Sarina Jacques MD Unavailable Unavailable Sarina Jacques MD Unavailable Unavailable Sarina Jacques MD Unavailable Unavailable Sarina Jacques MD Unavailable Unavailable Sarina Jacques MD Unavailable Unavailable Sarina Jacques MD Unavailable Unavailable Sarina Jacques MD Unavailable Unavailable Sarina Jacques MD Unavailable Unavailable Sarina Jacques MD Unavailable Unavailable Sarina Jacques MD Unavailable Unavailable Sarina Jacques MD Unavailable Unavailable Sarina Jacques MD Unavailable Unavailable Sarina Jacques MD Unavailable Unavailable Sarina Jacques MD Unavailable Unavailable Sarina Jacques MD Unavailable Unavailable aSrina Jacques MD Unavailable Unavailable Sarina Jacques MD Unavailable Unavailable Sarina Jacques MD Unavailable Unavailable Sarina Jacques MD Unavailable Unavailable Sarina Jacques MD Unavailable Unavailable Sarina Jacques MD Unavailable Unavailable Sarina Jacques MD Unavailable Unavailable Sarina Jacques MD Unavailable Unavailable Sarina Jacques MD Unavailable Unavailable Sarina Jacques MD Unavailable Unavailable Sarina Jacques MD Unavailable Unavailable Sarina Jacques MD Unavailable Unavailable Sarina Jacques MD Unavailable Unavailable Sarina Jacques MD Unavailable Unavailable Sarina Jacques MD Unavailable Unavailable Sarina Jacques MD Unavailable Unavailable Sarina Jacques MD Unavailable Unavailable Sarina Jacques MD Unavailable Unavailable Sarina Jacques MD Unavailable Unavailable Sarina Jacques MD Unavailable Unavailable Sarina Jacques MD Unavailable Unavailable Sarina Jacques MD Unavailable Unavailable Sarina Jacques MD Unavailable Unavailable Sarina Jacques MD Unavailable Unavailable Sarina Jacques MD Unavailable Unavailable Sarina Jacques MD Unavailable Unavailable Sarina Jacques MD Unavailable Unavailable Sarina Jacques MD Unavailable Unavailable Sarina Jacques MD Unavailable Unavailable Sarina Jacques MD Unavailable Unavailable Sarina Jacques MD Unavailable Unavailable White, F Devon MD Unavailable Unavailable White, F Devon MD Unavailable Unavailable White, F Devon MD Unavailable Unavailable White, F Devon MD Unavailable Unavailable White, F Devon MD Unavailable Unavailable White, F Devon MD Unavailable Unavailable White, F Devon MD Unavailable Unavailable White, F Devon MD Unavailable Unavailable White, F Devon MD Unavailable Unavailable White, F Devon MD Unavailable Unavailable White, F Devon MD Unavailable Unavailable White, F Devon MD Unavailable Unavailable White, F Devon MD Unavailable Unavailable White, F Devon MD Unavailable Unavailable White, F Devon MD Unavailable Unavailable White, F Devon MD Unavailable Unavailable White, F Devon MD Unavailable Unavailable White, F Devon MD Unavailable Unavailable White, F Devon MD Unavailable Unavailable White, F Devon MD Unavailable Unavailable White, F Devon MD Unavailable Unavailable White, F Devon MD Unavailable Unavailable White, F Devon MD Unavailable Unavailable White, F Devon MD Unavailable Unavailable White, F Devon MD Unavailable Unavailable Re-disclosure Warning The records that you are about to access may contain information from federally-assisted alcohol or drug abuse programs. If such information is present, then the following federally mandated warning applies: This information has been disclosed to you from records protected by federal confidentiality rules (42 CFR part 2). The federal rules prohibit you from making any further disclosure of this information unless further disclosure is expressly permitted by the written consent of the person to whom it pertains or as otherwise permitted by 42 CFR part 2. A general authorization for the release of medical or other information is NOT sufficient for this purpose. The Federal rules restrict any use of the information to criminally investigate or prosecute any alcohol or drug abuse patient.The records that you are about to access may contain highly sensitive health information, the redisclosure of which is protected by Article 27-F of the [facility] Public Health law. If you continue you may have access to information: Regarding HIV / AIDS; Provided by facilities licensed or operated by the [facility] Office of Mental Health; or Provided by the [facility] Office for People With Developmental Disabilities. If such information is present, then the following [facility] mandated warning applies: This information has been disclosed to you from confidential records which are protected by state law. State law prohibits you from making any further disclosure of this information without the specific written consent of the person to whom it pertains, or as otherwise permitted by law. Any unauthorized further disclosure in violation of state law may result in a fine or senior care sentence or both. A general authorization for the release of medical or other information is NOT sufficient authorization for further disc losure. Allergies and Adverse Reactions Type Description Substance Reaction Status Data Source(s ) peppermint peppermint peppermint Rash Active eCW1 ([facility]) peppermint peppermint peppermint Rash Active eCW1 ([facility]) Family History Family Member Name Family Member Gender Family Member Status Date o f Status Description Data Source(s) Unknown Male Problem MEDENT ([facility]) Unknown Male Problem MED[facility] ([facility], ) () Unknown Female Problem MEDENT ([facility]) Encounters Encounter Providers Location Date Indications Data Source(s ) Outpatient [address] [place] [phone] 09/17/2020 12:00:00 AM EST eCW1 ([facility]) Outpatient Attender: Jose Castro MD Main Office 08/29/2020 12:30:00 PM EST MEDENT ([facility]) Outpatient Attender: [facility] 08/29 10:00:00 AM EST MEDENT ([facility] ) [facility] [address] [place] [phone] 09/14/2019 12:00:00 AM EST eCW1 ([facility]) [facility] [address] [place] [phone] 08/16/2019 12:00:00 AM EST eCW1 ([facility]) Immunizations Vaccine Date Status Description Data Source(s) Pneumococcal conjugate PCV 13 05/01/2020 12:38:00 PM EDT completed MEDENT ([facility]) pneumococcal polysaccharide PPV23 05/01/2020 12:38:00 PM EDT comple mahi MEDENT ([facility]) Shingrix Zoster Vaccine (HZV), Recombinant, Subunit, A djuvanted 05/01/2020 12:38:00 PM EDT completed [facility]) This CVX code allows reporting of a vacc ination when formulation is unknown (for example, when recording a Influenza vaccination when noted on a vaccination card) 05/01/2020 12:38:00 PM EDT completed MEDEN T ([facility]) Note that this Td is not adsorbed. 05/01/2020 12:38:00 PM EDT compl eted MEDENT ([facility]) Insurance Providers Payer name Policy type / Coverage type Policy ID Covered libertarian ID Covered libertarian's relationship to larkin Policy Larkin Plan Information MEDICARE [id number] SP [id number] AARP HEALTH CARE OPTIONS [id number] SP [id number] MEDICARE [id number] SP [id number] AARP HEALTH CARE OPTIONS [id number] SP [id number] AARP HEALTH CARE OPTIONS [id number] SP [id number] AARP HEALTH CARE OPTIONS [id number] SP [id number] Aarp Healthcare Opt Medigap Part B [id number] Self [id number] Medicare Natl Govt Servic Medicare Primary [id number] Self [id number] BS Jena Trad/MX Medigap Part B [id number] Self [id number] Lifetime Benefit ([employer]) Commercial [id number] Self [id number] BS [place]n Trad/MX Medigap Part B [id number] Self [id number] MEDICARE [id number] SP [id number] A Aarp Medigap Part B [id number] Self [id number] Medicare [place]/NGS Medicare Primary [id number] Self [id number] Excellus [facility] Health Maintenance Organization (HMO) [id number] Self [id number] Aarp Healthcare Opt Medigap Part B [id number] Self [id number] Medicare Natl Govt Servic Medicare Primary [id number] Self [id number] Aarp Healthcare Opt Medigap Part B [id number] Self [id number] Medicare Natl Govt Servic Medicare Primary [id number] Self [id number] AARP O [id number] S [id number] MEDICARE [id number] S [id number] A Aarp Health Care Options Medigap Part B [id number] Self [id number] [place] Primary [id number] Self [id number] AARP HEALTH CARE OPTIONS [id number] SP [id number] Aarp Health Care Options Medigap Part B [id number] Self [id number] [place] Medicare Primary [id number] Self [id number] MEDICARE C UNAVAILABLE S UNAVAILA BLE Aarp Healthcare Opt Medigap Part B [id number] Self [id number] Medicare Natl Govt Servic Medicare Primary [id number] Self [id number] Aarp [employer] Opt Medigap Part B [id number] Self [id number] Medicare Natl Govt Servic Medicare Primary [id number] Self [id number] Aarp Medigap Part B [id number] Self [id number] Medicare [place]/[facility] Medicare Primary [id number] Self [id number] Aarp Healthcare Opt Medigap Part B [id number] Self [id number] Medicare Natl Govt Servic Medicare Primary [id number] Self [id number] AARP HEALTH CARE OPTIONS [id number] SP [id number] Aarp Health Care Options Medigap Part B [id number] Self [id number] [place] Primary [id number] Self [id number] MEDICARE [id number] SP [id number] A BS Jena Trad/MX Commercial Self Lifetime Benefit ([employer]) Commercial Self BS [place] Trad/MX Medigap Part B Self Aarp Healthcare Opt Medigap Part B Self Medicare Natl Govt Servic Medicare Primary Self [id number] Surgeries/Procedures Procedure Description Date Indications Data Source(s) DESTROY BENIGN/PREMLG LESION 09/14/2019 12:00:00 AM ES T eCW1 ([facility]) DESTROY LESIONS, 2-14 09/14/2019 12:00:00 AM EST eCW1 ([facility]) DESTRUCT B9 LESION 1-14 09/14/2019 12:00:00 AM EST eCW1 ([facility]) Results ID Date Data Source [id number] 09/20/2020 11:00:00 AM EST [facility] Name Value Range Interpretation Code Description Data Elysia rce(s) Supporting Document(s) SARS coronavirus 2 RNA Not Detected [facility] [place] This lab was ordered by [facility] and reported by [facility]. ID Date Data Source [id number] 08/28/2020 07:59:00 AM EST MEDENT ([facility]) Name Value Range Interpretation Code Description Data Elysia rce(s) Supporting Document(s) [id number] [Mass/volume] in Serum or Plasma 3.4 ng/mL [facility] THE AFP ASSAY IS PERFORMED ON THE [employer] BY CHEMILUMINESCENCE AND SHOULD NOT BE COMPARED INTERCHANGEABLY WITH OTHER METHODS. IT SHOULD NOT BE USED ALONE A SCREENING TEST OR DIAGNOSIS FOR THE PRESENCE OR ABSENCE OF MALIGNANT DISEASE. THESE RESULTS ARE NOT INTERPRETABLE IN FEMALES. PREDICTIONS OF DISEASE RECURRENCE SHOULD NOT BE BASED SOLELY ON VALUES OBTAINED FROM SERIAL PATIENT SERUM VALUES. ID Date Data Source [id number] 08/28/2020 07:59:00 AM EST MEDENT ([facility]) Name Value Range Interpretation Code Description Data Elysia rce(s) Supporting Document(s) Inr 1.01 [facility] THERAPUTIC HUMAN INR VALUES INDICATIONS NORMAL RANGES PROPHYLAXIS/TREATMENT OF: VENOUS THROMBOSIS 2.0-3.0 PULMONARY EMBOLISM 2.0-3.0 PREVENTION OF SYSTEMIC EMBOLISM FROM: TISSUE HEART VALVES 2.0-3.0 ACUTE MYOCARDIAL INFARCTION 2.0-3.0 VALVULAR HEART DISEASE 2.0-3.0 ATRIAL FIBRILLATION 2.0-3.0 MECHANICAL VALVES(HIGH RISK) 2.5-3.5 RECURRENT MYOCARDIAL INFARCTION 2.5-3.5 Prothrombin Time 13.5 s 12.5-14.3 MED[facility] ([facility]) ID Date Data Source [id number] 08/28/2020 07:58:00 AM EST MEDENT ([facility]) Name Value Range Interpretation Code Description Data Elysia rce(s) Supporting Document(s) Prostate specific Ag [Mass/volume] in Serum or Plasma 0.92 ng/mL MED[facility] ([facility]) This assay was performed on the [employer] using the B- Galactosidase/CPRG methodology and should not be compared interchangeably with other methods. The PSA should not be used alone as a screening test for the presence or absence of malignant disease. ID Date Data Source [id number] 08/28/2020 07:58:00 AM EST MEDENT ([facility]) Name Value Range Interpretation Code Description Data Elysia rce(s) Supporting Document(s) Glucose [Mass/volume] in Serum or Plasma 111 mg/dL 74-99 [facility] ([facility]) 100-125 mg/dL PRE-DIABETES/FASTING >126 mg/dL DIABETES/FASTING Urea nitrogen [Mass/volume] in Serum or Plasma 12 mg/dL 7-18 [facility] ([facility]) Creatinine 0.8 mg/dL 0.6-1.3 [facility] ([facility]) Potassium [Moles/volume] in Serum or Plasma 4.4 meq/L 3.5-5.1 [facility] ([facility]) Sodium [Moles/volume] in Serum or Plasma 143 meq/L 136-145 [facility] ([facility]) Chloride [Moles/volume] in Serum or Plasma 105 meq/L 98-107 [facility] ([facility]) Carbon dioxide, total [Moles/volume] in Serum or Plasma 30 meq/L 21 -32 [facility] ([facility]) Alkaline phosphatase isoenzyme [Units/volume] in Serum or Pl asma 75 mg/dL 46-116 [facility] ([facility]) Calcium [Mass/volume] in Serum or Plasma 8.8 mg/dL 8.5-10.1 [facility] ([facility]) Aspartate aminotransferase [Enzymatic activity/volume] in Serum or Plasma 18 U/L 15-37 [facility] ([facility] ) Total Bilirubin 0.5 mg/dL 0.2-1.0 MED[facility] ([facility]) Alanine aminotransferase [Enzymatic activity/volume] in Seru m or Plasma 20 U/L 12-78 [facility] ([facility]) Albumin [Mass/volume] in Serum or Plasma 3.8 g/dL 3.4-5.0 [facility] ([facility]) A/G Ratio 0.93 CALC 1.00-1.90 [facility]) Proteinase 3 Ab [Units/volume] in Serum 7.9 g/dL 6.4-8.2 [facility] ([facility]) Glomerular filtration rate/1.73 sq M pre dicted among non-blacks [Volume Rate/Area] in Serum or Plasma by Creatinine-based formula (MDRD) Laboratory test result [facility] Glomerular filtration rate/1.73 sq M pre dicted among blacks [Volume Rate/Area] in Serum or Plasma by Creatinine-based formula (MDRD) Laboratory test result [facility] <content>CHRONIC KIDNEY DISEASE STAGING PER NKF</content>
<content></content>
<content>STAGE I & II GFR >= 60 NORMAL TO MILDLY DECREASED</content>
<content>STAGE III GFR 30-59 MODERATELY DECREASED</content>
<content>STAGE IV GFR 15-29 SEVERELY DECREASED</content>
<content>STAGE V GFR <15 VERY LITTLE GFR LEFT</content>
<content>ESRD GFR <15 ON [address] ATTENDANT</content>
<content></content> ID Date Data Source [id number] 08/28/2020 07:58:00 AM EST [facility] Name Value Range Interpretation Code Description Data Elysia rce(s) Supporting Document(s) Leukocytes [#/volume] in Blood by Automated count 1.8 x10*3/UL 4.1-10 .9 [facility] NOTE: RESULT VERIFIED. Hematocrit [Volume Fraction] of Blood by Automated count 38.1 % 3 7.0-51.0 [facility] Erythrocytes [#/volume] in Blood by Automated count 4.14 x10*6/UL 4.2 0-6.30 [facility] Hemoglobin [Mass/volume] in Blood 13.2 g/dL 12.0-18.0 [facility] ([facility]) MCH 32.0 pg 26.0-32.0 [facility] MCV 91.8 fL 80.0-97.0 [facility] [facility]) Erythrocyte distribution width [Ratio] by Automated count 15.2 % 11.6-13.7 [facility] ([facility]) MCHC 34.8 g/dL 31.0-38.0 MEDENT ([facility]) Lymph % 31.6 % 10.0-58.5 MED[facility] ([facility]) MPV 10.7 FL 7.8-11.0 [facility] ([facility]) Platelets [#/volume] in Blood by Automated count 38 x10*3/UL 140-440 [facility] NOTE: RESULT VERIFIED. Neut % 61.9 % 37.0-92.0 [facility] ([facility]) Lymph # 0.5 x10*3/UL 0.6-4.1 [facility] ([facility]) Mid % 6.5 % 1.7-9.3 [facility] ([facility]) Mid # 0.2 x10*3/UL 0.1-0.6 [facility] Neut # 1.1 x10*3/UL 2.0-7.8 [facility] ID Date Data Source [id number] 07/08/2020 11:59:00 AM EDT [facility] ([facility] Name Value Range Interpretation Code Description Data Elysia rce(s) Supporting Document(s) [id number] [Mass/volume] in Serum or Plasma 2.5 ng/mL [facility] THE AFP ASSAY IS PERFORMED ON THE [employer] BY CHEMILUMINESCENCE AND SHOULD NOT BE COMPARED INTERCHANGEABLY WITH OTHER METHODS. IT SHOULD NOT BE USED ALONE A SCREENING TEST OR DIAGNOSIS FOR THE PRESENCE OR ABSENCE OF MALIGNANT DISEASE. THESE RESULTS ARE NOT INTERPRETABLE IN FEMALES. PREDICTIONS OF DISEASE RECURRENCE SHOULD NOT BE BASED SOLELY ON VALUES OBTAINED FROM SERIAL PATIENT SERUM VALUES. ID Date Data Source [id number] 07/08/2020 11:59:00 AM EDT [facility] Name Value Range Interpretation Code Description Data Elysia rce(s) Supporting Document(s) Glucose, Fasting 112 mg/dL 70-100 [facility] Creatinine For GFR 0.83 mg/dL 0.70-1.30 [facility] Blood Urea Nitrogen 11 mg/dL 7-18 [facility] ([facility]) Glomerular Filtration Rate Laboratory test result [facility] <content>Units are mL/min/1.73 m2</content>
<content></content>
<content>Chronic Kidney Disease Staging per NKF:</content>
<content></content>
<content>Stage I & II GFR >=60 Normal to Mildly Decreased</content>
<content>Stage III GFR 30- 59 Moderately Decreased</content>
<content>Stage IV GFR 15-29 Severely Decreased</content>
<content>Stage V GFR <15 Very Little GFR Left</content>
<content>ESRD GFR <15 on V[address]UE ATTENDANT</content>
<content></content> Sodium Level 139 meq/L 136-145 [facility] ([facility]) Potassium Serum 4.0 meq/L 3.5-5.1 [facility] ([facility]) Anion Gap 4 meq/L 8-16 [facility] ([place] [facility]) Carbon Dioxide Level 32 meq/L 21-32 MED[facility] ([facility]) Chloride Level 103 meq/L 98-107 MED[facility] ([facility]) Calcium Level 9.3 mg/dL 8.8-10.2 MED[facility] ([facility]) Alt/SGPT 29 U/L 12-78 [facility] ([place] [facility]) Ast/Sgot 24 U/L 7-37 MED[facility] ([facility]) Total Protein 8.3 GM/DL 6.4-8.2 MED[facility] ([facility]) Bilirubin,Total 0.7 mg/dL 0.2-1.0 [facility] ([facility]) Alkaline Phosphatase 94 U/L 45-117 [facility] ([facility]) Albumin[facility]obulin [facility]8 [facility] Albumin 3.8 GM/DL 3.2-5.2 [facility] [facility] ID Date Data Source [id number] 07/08/2020 11:59:00 AM EDT [facility] ([facility]) Name Value Range Interpretation Code Description Data Elysia rce(s) Supporting Document(s) Prothrombin Time 13.8 s 12.5-14.3 [facility] ([facility]) Inr 1.04 [facility] ([facility]) THERAPUTIC HUMAN INR VALUES INDICATIONS NORMAL RANGES PROPHYLAXIS/TREATMENT OF: VENOUS THROMBOSIS 2.0-3.0 PULMONARY EMBOLISM 2.0-3.0 PREVENTION OF SYSTEMIC EMBOLISM FROM: TISSUE HEART VALVES 2.0-3.0 ACUTE MYOCARDIAL INFARCTION 2.0-3.0 VALVULAR HEART DISEASE 2.0-3.0 ATRIAL FIBRILLATION 2.0-3.0 MECHANICAL VALVES(HIGH RISK) 2.5-3.5 RECURRENT MYOCARDIAL INFARCTION 2.5-3.5 ID Date Data Source [id number] 07/08/2020 11:59:00 AM EDT [facility] ([facility]) Name Value Range Interpretation Code Description Data Elysia rce(s) Supporting Document(s) Platelets reticulated/100 platelets in Blood by Automated co unt 16.4 % 0.0-10.91 [facility] ID Date Data Source [id number] 07/08/2020 11:59:00 AM EDT [facility] ([facility]) Name Value Range Interpretation Code Description Data Elysia rce(s) Supporting Document(s) White Blood Count 2.6 10 4.0-10.0 [facility] ([facility]) Red Blood Count 4.52 10 4.30-6.10 [facility] ([facility]) Hemoglobin 13.5 g/dL 13.5-17.5 [facility] Hematocrit 43.1 % 42.0-52.0 [facility] Mean Corpuscular Volume 95.4 fl 80.0-96.0 [facility] ([facility]) Mean Corpuscular HGB Conc 31.3 g/dL 32.0-36.5 [facility] ([facility]) Red Cell Distribution Width 15.4 % 11.5-14.5 [place] [facility] ([facility]) Mean Corpuscular Hemoglobin 29.9 pg 27.0-33.0 TN DENT ([facility]) Lymph % 31.0 % 24.0-44.0 MEDENT [facility] [facility] Neutrophils % 55.4 % 36.0-66.0 MEDENT ([facility]) Platelet Count, Automated 37 10 150-450 MEDE NT ([facility]) Baso % 0.4 % 0.0-1.0 [facility] ([facility] [facility]) Eos % 1.9 % 0.0-3.0 [facility] [facility] [place] % 10.9 % 0.0-5.0 MED[facility] [facility] Immature Granulocyte % 0.4 % 0-3.0 MEDENT ([facility]) Nucleated Red Blood Cell % 0.0 % 0-0 MED ENT ([facility]) Neutrophils # 1.4 10 1.5-8.5 MEDENT ([facility]) Eos # 0.1 10 0.0-0.5 MED[facility] [facility] Lymph # 0.8 10 1.5-5.0 MED[facility] [facility] [place] # 0.3 10 0.0-0.8 [facility] [facility] Baso # 0.0 10 0.0-0.2 [facility] [facility] ID Date Data Source [id number] 05/16/2020 12:59:00 PM EDT MEDENT ([facility]) Name Value Range Interpretation Code Description Data Elysia rce(s) Supporting Document(s) Red Blood Count 4.44 10 4.30-6.10 MEDENT ([facility]) White Blood Count 2.5 10 4.0-10.0 MEDENT ([facility]) Hemoglobin 13.8 g/dL 13.5-17.5 [facility]) Hematocrit 41.8 % 42.0-52.0 MEDENT [facility]) Mean Corpuscular Volume 94.1 fl 80.0-96.0 MEDENT ([facility]) Mean Corpuscular Hemoglobin 31.1 pg 27.0-33.0 ME DENT ([facility]) Red Cell Distribution Width 15.6 % 11.5-14.5 ME DENT ([facility]) Platelet Count, Automated 38 10 150-450 MEDE NT ([facility]) Scan Verified machine results PLATELET COUNT LESS THAN 100, AND NEW OCCURANCE OR Mean Corpuscular HGB Conc 33.0 g/dL 32.0-36.5 MEDE NT ([facility]) Lymph % 34.5 % 24.0-44.0 MEDENT ([facility] [facility]) [place] % 10.3 % 0.0-5.0 MEDENT [facility] [facility] Neutrophils % 52.0 % 36.0-66.0 MEDENT ([facility]) Baso % 0.4 % 0.0-1.0 MEDENT ([place] [facility]) Eos % 2.0 % 0.0-3.0 MEDENT ([place] [facility] Nucleated Red Blood Cell % 0.0 % 0-0 MED ENT ([facility]) Neutrophils # 1.3 10 1.5-8.5 MEDENT ([facility]) Immature Granulocyte % 0.8 % 0-3.0 MEDENT ([facility]) [place] # 0.3 10 0.0-0.8 MEDENT ([facility] [facility]) Lymph # 0.9 10 1.5-5.0 MEDENT ([facility]) Eos # 0.1 10 0.0-0.5 MEDENT ([place] [facility] Baso # 0.0 10 0.0-0.2 MEDENT ([place] [facility] ID Date Data Source [id number] 05/16/2020 12:59:00 PM EDT MEDENT ([facility]) Name Value Range Interpretation Code Description Data Elysia rce(s) Supporting Document(s) Platelets reticulated/100 platelets in Blood by Automated co unt 18.1 % 0.0-10.91 MEDENT ([facility]) ID Date Data Source [id number] 05/16/2020 12:59:00 PM EDT MEDENT ([facility]) Name Value Range Interpretation Code Description Data Elysia rce(s) Supporting Document(s) Free [place] Light Chains Serum 49.5 mg/L 3.3-19.4 MEDENT ([facility]) [place]/Lambda Ratio Serum 1.00 0.26-1.65 MEDEN T ([facility]) Performed at: RN - [facility] [address] [id number] [place] Consultant: Olena Bolton MD, Phone: [phone] Free Lambda Light Chains Serum 49.4 mg/L 5.7-26.3 MEDENT ([facility]) ID Date Data Source [id number] 05/16/2020 12:59:00 PM EDT MEDENT ([facility]) Name Value Range Interpretation Code Description Data Elysia rce(s) Supporting Document(s) Glucose, Fasting 138 mg/dL 70-100 MEDENT ([facility]) Creatinine For GFR 0.78 mg/dL 0.70-1.30 [facility] Glomerular Filtration Rate Laboratory [facility] <content>Units are mL/min/1.73 m2</content>
<content></content>
<content>Chronic Kidney Disease Staging per NKF:</content>
<content></content>
<content>Stage I & II GFR >=60 Normal to Mildly Decreased</content>
<content>Stage III GFR 30- 59 Moderately Decreased</content>
<content>Stage IV GFR 15-29 Severely Decreased</content>
<content>Stage V GFR <15 Very Little GFR Left</content>
<content>ESRD GFR <15 on VENUE ATTENDANT</content>
<content></content> Blood Urea Nitrogen 9 mg/dL 7-18 MEDENT ([facility]) Sodium Level 139 meq/L 136-145 MEDENT ([facility]) Potassium Serum 3.7 meq/L 3.5-5.1 MEDENT ([facility]) Carbon Dioxide Level 29 meq/L 21-32 MEDENT ([facility]) Chloride Level 105 meq/L 98-107 MEDENT ([facility]) Ast/Sgot 16 U/L 7-37 MEDENT ([facility]) Anion Gap 5 meq/L 8-16 MEDENT ([facility]) Calcium Level 9.3 mg/dL 8.8-10.2 MEDENT ([facility]) Alkaline Phosphatase 85 U/L 45-117 MEDENT ([facility]) Bilirubin,Total 0.7 mg/dL 0.2-1.0 MEDENT ([facility]) Alt/SGPT 24 U/L 12-78 MEDENT ([facility]) Albumin/Globulin Ratio 0.8 [facility]ENT [facility] Total Protein 8.8 GM/DL 6.4-8.2 MEDENT ([facility]) Albumin 3.9 GM/DL 3.2-5.2 MEDENT ([facility]) ID Date Data Source [id number] 05/16/2020 12:59:00 PM EDT MEDENT ([facility]) Name Value Range Interpretation Code Description Data Elysia rce(s) Supporting Document(s) Immunotyping Serum Igg Laboratory test result MEDENT ([facility]) Immunotyping Serum [place] Laboratory test result MEDENT ([facility]) It Serum Interpretation Laboratory test result [facility] ([facility]) IGG,KAPPA Laboratory test finding (navigational concept) Laboratory test result MEDENT ([facility]) REV'D BY Matteo ANGUIANO ID Date Data Source [id number] 05/16/2020 12:59:00 PM EDT MEDENT ([facility]) Name Value Range Interpretation Code Description Data Elysia rce(s) Supporting Document(s) Oxczw-0-Rddfkduy % 3.6 % 2.9-4.9 MEDENT ([facility]) Albumin % 54.5 % 55.8-66.1 MEDENT ([facility]) Yeys-8-Ktketnbpv % 5.7 % 4.7-7.2 MEDENT ([facility]) Qkmiq-3-Azmthqqlt % 7.2 % 7.1-11.8 MEDENT ([facility]) Ipad-2-Pmkialnsg % 4.9 % 3.2-6.5 MEDENT ([facility]) Mqdrg-3-Bcavzpnky 0.32 GM/DL 0.17-0.41 MEDENT ([facility]) Albumin 4.80 GM/DL 3.29-5.55 MEDENT ([facility]) Gamma Globulin % 24.1 % 11.1-18.8 MEDENT ([facility]) Nxes-3-Frlusmhur 0.43 GM/DL 0.19-0.55 MEDENT ([facility]) Oclew-6-Vgrbdfsfh 0.63 GM/DL 0.42-0.99 MEDENT ([facility]) Qevl-8-Guyixvaam 0.50 GM/DL 0.28-0.60 MEDENT ([facility]) Gamma Globulins 2.12 GM/DL 0.65-1.58 MEDENT ([facility]) Total Protein 8.8 GM/DL 6.4-8.2 MEDENT ([facility]) Spep Interpretation Laboratory test [facility] ([facility]) ATYPICAL SHAPE OF GAMMA REGION NOTED. UN ABLE TO DEFINITIVELY DETERMINE THE PRESENCE OF ATYPICAL BANDS. SUGGEST FOLLOW-UP IN 6-9 MONTHS IF PATIENT'S SYMPTOMS WARRANT. Laboratory test finding (navigational concept) Laboratory test result [facility] ([facility]) REV'D BY Matteo ANGUIANO ID Date Data Source [id number] 04/30/2020 07:42:00 AM EDT [facility] ([facility]) Name Value Range Interpretation Code Description Data Elysia rce(s) Supporting Document(s) Asadg-9-Zblwcihuhyj [Mass/volume] in Serum or Plasma 4.1 ng/mL MEDENT ([facility]) THE AFP ASSAY IS PERFORMED ON THE [employer] BY CHEMILUMINESCENCE AND SHOULD NOT BE COMPARED INTERCHANGEABLY WITH OTHER METHODS. IT SHOULD NOT BE USED ALONE A SCREENING TEST OR DIAGNOSIS FOR THE PRESENCE OR ABSENCE OF MALIGNANT DISEASE. THESE RESULTS ARE NOT INTERPRETABLE IN FEMALES. PREDICTIONS OF DISEASE RECURRENCE SHOULD NOT BE BASED SOLELY ON VALUES OBTAINED FROM SERIAL PATIENT SERUM VALUES. ID Date Data Source [id number] 04/30/2020 07:42:00 AM EDT [facility] ([facility]) Name Value Range Interpretation Code Description Data Elysia rce(s) Supporting Document(s) Ammonia [Mass/volume] in Blood 22 uMOL/L MEDENT ([facility]) Hteth-1-Acgwyboubuj [Mass/volume] in Serum or Plasma 4.1 ng/mL [facility]) THE AFP ASSAY IS PERFORMED ON THE [employer] BY CHEMILUMINESCENCE AND SHOULD NOT BE COMPARED INTERCHANGEABLY WITH OTHER METHODS. IT SHOULD NOT BE USED ALONE A SCREENING TEST OR DIAGNOSIS FOR THE PRESENCE OR ABSENCE OF MALIGNANT DISEASE. THESE RESULTS ARE NOT INTERPRETABLE IN FEMALES. PREDICTIONS OF DISEASE RECURRENCE SHOULD NOT BE BASED SOLELY ON VALUES OBTAINED FROM SERIAL PATIENT SERUM VALUES. Ferritin [Mass/volume] in Serum or Plasma 24 ng/mL 26-388 [facility]) ID Date Data Source [id number] 04/30/2020 07:41[facility] Name Value Range Interpretation Code Description Data Elysia rce(s) Supporting Document(s) Cholesterol [Mass/volume] in Serum or Plasma 166 mg/dL 131-200 MEDENT ([facility]) Triglyceride [Mass/volume] in Serum or Plasma 133 mg/dL 30-150 MEDENT ([facility]) Cholesterol in LDL [Mass/volume] in Serum or Plasma by calcu lation 100 CALC 50-159 MEDENT ([facility]) Cholesterol in HDL [Mass/volume] in Serum or Plasma 39 mg/dL 35-60 MEDENT ([facility]) ID Date Data Source [id number] 04/30/2020 07:41:00 AM EDT [facility] Name Value Range Interpretation Code Description Data Elysia rce(s) Supporting Document(s) Glucose [Mass/volume] in Serum or Plasma 115 mg/dL 74-99 MEDENT ([facility]) 100-125 mg/dL PRE-DIABETES/FASTING >126 mg/dL DIABETES/FASTING Urea nitrogen [Mass/volume] in Serum or Plasma 9 mg/dL 7-18 MEDENT ([facility]) Creatinine 1.0 mg/dL 0.6-1.3 [facility] ([facility]) Carbon dioxide, total [Moles/volume] in Serum or Plasma 31 meq/L 21 -32 MEDENT ([facility]) Sodium [Moles/volume] in Serum or Plasma 143 meq/L 136-145 MEDENT ([facility]) Chloride [Moles/volume] in Serum or Plasma 105 meq/L 98-107 MEDENT ([facility]) Potassium [Moles/volume] in Serum or Plasma 4.3 meq/L 3.5-5.1 MEDENT ([facility]) Calcium [Mass/volume] in Serum or Plasma 9.1 mg/dL 8.5-10.1 MEDENT ([facility]) Alkaline phosphatase isoenzyme [Units/volume] in Serum or Pl asma 80 mg/dL 46-116 MEDENT ([facility]) Total Bilirubin 0.6 mg/dL 0.2-1.0 MEDENT ([facility]) Alanine aminotransferase [Enzymatic activity/volume] in Seru m or Plasma 21 U/L 12-78 MEDENT ([facility]) Albumin [Mass/volume] in Serum or Plasma 3.9 g/dL 3.4-5.0 MEDENT ([facility]) Aspartate aminotransferase [Enzymatic activity/volume] in Serum or Plasma 15 U/L 15-37 MEDENT ([facility] ) A/G Ratio 0.87 CALC 1.00-1.90 MED[facility] ([facility]) Proteinase 3 Ab [Units/volume] in Serum 8.4 g/dL 6.4-8.2 MEDENT ([facility]) Glomerular filtration rate/1.73 sq M pre dicted among non-blacks [Volume Rate/Area] in Serum or Plasma by Creatinine-based formula (MDRD) Laboratory test result [facility] Glomerular filtration rate/1.73 sq M pre dicted among blacks [Volume Rate/Area] in Serum or Plasma by Creatinine-based formula (MDRD) Laboratory test result [facility] <content>CHRONIC KIDNEY DISEASE STAGING PER NKF</content>
<content></content>
<content>STAGE I & II GFR >= 60 NORMAL TO MILDLY DECREASED</content>
<content>STAGE III GFR 30-59 MODERATELY DECREASED</content>
<content>STAGE IV GFR 15-29 SEVERELY DECREASED</content>
<content>STAGE V GFR <15 VERY LITTLE GFR LEFT</content>
<content>ESRD GFR <15 ON [address] ATTENDANT</content>
<content></content> ID Date Data Source [id number] 04/30/2020 07:41:00 AM EDT MEDENT ([facility]) Name Value Range Interpretation Code Description Data Elysia rce(s) Supporting Document(s) Leukocytes [#/volume] in Blood by Automated count 2.3 x10*3/UL 4.1-10 .9 MEDENT ([facility]) Erythrocytes [#/volume] in Blood by Automated count 4.44 x10*6/UL 4.2 0-6.30 [facility] ([facility] Hemoglobin [Mass/volume] in Blood 13.5 g/dL 12.0-18.0 MEDENT ([facility]) MCV 90.4 fL 80.0-97.0 MEDENT ([place] [facility]) Hematocrit [Volume Fraction] of Blood by Automated count 40.2 % 3 7.0-51.0 MEDENT ([facility]) MCH 30.4 pg 26.0-32.0 MEDENT ([place] [facility]) MCHC 33.6 g/dL 31.0-38.0 MEDENT ([facility]) Erythrocyte distribution width [Ratio] by Automated count 15.0 % 11.6-13.7 [facility] Platelets [#/volume] in Blood by Automated count 34 x10*3/UL 140-440 MEDENT ([facility]) NOTE: RESULT VERIFIED. Mid % 8.8 % 1.7-9.3 MEDENT ([place] [facility]) MPV 10.8 FL 7.8-11.0 MEDENT ([place] [facility]) Lymph % 29.0 % 10.0-58.5 [facility] [facility] Neut % 62.2 % 37.0-92.0 [facility] ([place] [facility]) Mid # 0.3 x10*3/UL 0.1-0.6 MEDENT ([facility]) Lymph # 0.6 x10*3/UL 0.6-4.1 MEDENT ([facility]) Neut # 1.4 x10*3/UL 2.0-7.8 MEDENT ([facility]) ID Date Data Source [id number] 10/26/2019 08:36:00 AM EST MEDENT ([facility]) Name Value Range Interpretation Code Description Data Elysia rce(s) Supporting Document(s) Ferritin [Mass/volume] in Serum or Plasma 23 ng/mL 26-388 MEDENT ([facility]) Ammonia [Mass/volume] in Blood 27 uMOL/L MEDENT ([facility]) ID Date Data Source [id number] 10/26/2019 08:35:00 AM EST MEDENT ([facility]) Name Value Range Interpretation Code Description Data Elysia rce(s) Supporting Document(s) Thyrotropin [Units/volume] in Serum or Plasma by Detec tion limit <= 0.05 mIU/L 2.02 uIU/mL 0.36-3.74 MEDENT ([facility] ) ID Date Data Source [id number] 10/26/2019 08:35:00 AM EST MEDENT ([facility]) Name Value Range Interpretation Code Description Data Elysia rce(s) Supporting Document(s) Glucose [Mass/volume] in Serum or Plasma 102 mg/dL 74-99 MEDENT ([facility]) 100-125 mg/dL PRE-DIABETES/FASTING >126 mg/dL DIABETES/FASTING Sodium [Moles/volume] in Serum or Plasma 143 meq/L 136-145 MEDENT ([facility]) Urea nitrogen [Mass/volume] in Serum or Plasma 9 mg/dL 7-18 MEDENT ([facility]) Creatinine 0.8 mg/dL 0.6-1.3 MEDENT ([facility]) Potassium [Moles/volume] in Serum or Plasma 4.3 meq/L 3.5-5.1 MEDENT ([facility]) Carbon dioxide, total [Moles/volume] in Serum or Plasma 31 meq/L 21 -32 MEDENT ([facility]) Chloride [Moles/volume] in Serum or Plasma 105 meq/L 98-107 MEDENT ([facility]) Calcium [Mass/volume] in Serum or Plasma 9.0 mg/dL 8.5-10.1 MEDENT ([facility]) Alkaline phosphatase isoenzyme [Units/volume] in Serum or Pl asma 80 mg/dL 46-116 MEDENT ([facility]) Total Bilirubin 0.4 mg/dL 0.2-1.0 MEDENT ([facility]) Aspartate aminotransferase [Enzymatic activity/volume] in Serum or Plasma 18 U/L 15-37 MEDENT ([facility] ) Albumin [Mass/volume] in Serum or Plasma 3.9 g/dL 3.4-5.0 MEDENT ([facility]) Alanine aminotransferase [Enzymatic activity/volume] in Seru m or Plasma 25 U/L 12-78 MEDENT ([facility]) Glomerular filtration rate/1.73 sq M pre dicted among non-blacks [Volume Rate/Area] in Serum or Plasma by Creatinine-based formula (MDRD) >= 60 mL/min MEDENT ([facility]) Proteinase 3 Ab [Units/volume] in Serum 8.4 g/dL 6.4-8.2 MEDENT ([facility]) A/G Ratio 0.87 CALC 1.00-1.90 [facility] ([facility] [facility]) Glomerular filtration rate/1.73 sq M pre dicted among blacks [Volume Rate/Area] in Serum or Plasma by Creatinine-based formula (MDRD) >= 60 mL/min [facility] <content>CHRONIC KIDNEY DISEASE STAGING PER NKF</content>
<content></content>
<content>STAGE I & II GFR >= 60 NORMAL TO MILDLY DECREASED</content>
<content>STAGE III GFR 30-59 MODERATELY DECREASED</content>
<content>STAGE IV GFR 15-29 SEVERELY DECREASED</content>
<content>STAGE V GFR <15 VERY LITTLE GFR LEFT</content>
<content>ESRD GFR <[address] ATTENDANT</content>
<content></content> ID Date Data Source [id number] 10/26/2019 08:35:00 AM EST MEDENT ([facility]) Name Value Range Interpretation Code Description Data Elysia rce(s) Supporting Document(s) Leukocytes [#/volume] in Blood by Automated count 2.3 x10*3/UL 4.1-10 .9 MEDENT ([facility]) NOTE: RESULT VERIFIED. Hematocrit [Volume Fraction] of Blood by Automated count 40.9 % 3 7.0-51.0 MEDENT ([facility]) Hemoglobin [Mass/volume] in Blood 13.5 g/dL 12.0-18.0 [facility] Erythrocytes [#/volume] in Blood by Automated count 4.54 x10*6/UL 4.2 0-6.30 MEDENT ([facility]) MCHC 33.0 g/dL 31.0-38.0 [facility] ([place] [facility]) MCV 90.2 fL 80.0-97.0 [facility] ([place] [facility]) MCH 29.8 pg 26.0-32.0 MED[facility] ([place] [facility]) Platelets [#/volume] in Blood by Automated count 34 x10*3/UL 140-440 [facility] NOTE: RESULT VERIFIED. Erythrocyte distribution width [Ratio] by Automated count 14.6 % 11.6-13.7 MEDENT ([facility]) Mid % 9.3 % 1.7-9.3 MED[facility] ([place] [facility]) MPV 9.5 FL 7.8-11.0 MED[facility] ([place] [facility]) Lymph % 34.1 % 10.0-58.5 MED[facility] ([place] [facility]) Mid # 0.2 x10*3/UL 0.1-0.6 MEDENT ([facility]) Neut % 56.6 % 37.0-92.0 [facility] ([place] [facility]) Lymph # 0.8 x10*3/UL 0.6-4.1 MEDENT ([facility]) Neut # 1.3 x10*3/UL 2.0-7.8 MEDENT ([facility]) Procedure Social History Code Duration Value Status Description Data Source(s ) Smoking 09/17/2020 12:00:00 AM EST Former Smoker completed Former Smoker eCW1 ([facility]) Vital Signs ID Date Data Source [id number] Name Value Range Interpretation Code Description Data Source(s) Diastolic blood pressure 80 mm[Hg] 80 mm[Hg] eCW1 ([facility]) Systolic blood pressure 138 mm[Hg] 138 mm[Hg] e CW1 ([facility]) Body mass index (BMI) [Ratio] 28.41 kg/m2 28.41 kg/m2 W1 ([facility]) Body height 70 [in_i] 70 [in_i] [facility] Body weight 198 [lb_av] 198 [lb_av] eCW1 ([facility]) Body temperature 97.2 [degF] 97.2 [degF] MEDENT ([facility]) Body weight 88.906 kg 88.906 kg MED[facility] ([facility]) Body mass index (BMI) [Ratio] 28.1 kg/m2 28.1 k g/m2 MEDENT ([facility]) Heart rate 87 /min 87 /min [facility] ([facility]) Diastolic blood pressure 85 mm[Hg] 85 mm[Hg] MEDENT ([facility]) Systolic blood pressure 139 mm[Hg] 139 mm[Hg] M EDENT ([facility]) Body weight 196.00 [lb_av] 196.00 [lb_av] MEDEN T ([facility]) Body height 70 [in_i] 70 [in_i] MEDENT ([facility]) 5'10" Body mass index (BMI) [Ratio] 27.3 kg/m2 27.3 k g/m2 MEDENT ([facility]) Body weight 196.00 [lb_av] 196.00 [lb_av] MEDEN T ([facility]) Body height 71 [in_i] 71 [in_i] MEDENT ([facility]) 5'11" Heart rate 78 /min 78 /min MEDENT ([facility]) Diastolic blood pressure 65 mm[Hg] 65 mm[Hg] [facility] Systolic blood pressure 132 mm[Hg] 132 mm[Hg] [facility]) Diastolic blood pressure 72 mm[Hg] 72 mm[Hg] [facility]) Systolic blood pressure 148 mm[Hg] 148 mm[Hg] [facility] ([facility]) Body mass index (BMI) [Ratio] 26.8 kg/m2 26.8 k g/m2 [facility] ([facility]) Oxygen saturation in Arterial blood by Pulse oximetry 98 % 98 % [facility] ([facility]) Air Body weight 192.12 [lb_av] 192.12 [lb_av] MEDEN T ([facility]) Body height 71 [in_i] 71 [in_i] [facility] " Heart rate 74 /min 74 /min [facility]) Diastolic blood pressure 72 mm[Hg] 72 mm[Hg] [facility] ([facility]) Systolic blood pressure 122 mm[Hg] 122 mm[Hg] [facility] ([facility]) Body mass index (BMI) [Ratio] 27.1 kg/m2 27.1 k g/m2 [facility] ([facility]) Body weight 194.00 [lb_av] 194.00 [lb_av] MEDEN T ([facility]) Body height 71 [in_i] 71 [in_i] [facility] ([facility]) " Heart rate 70 /min 70 /min [facility]) Diastolic blood pressure 78 mm[Hg] 78 mm[Hg] [facility]) Systolic blood pressure 142 mm[Hg] 142 mm[Hg] [facility]) Diastolic blood pressure 72 mm[Hg] 72 mm[Hg] eCW1 ([facility]) Systolic blood pressure 150 mm[Hg] 150 mm[Hg] e CW1 ([facility]) Body temperature 98 [degF] 98 [degF] eCW1 ([facility]) Respiratory rate 18 /min 18 /min eCW1 ([facility]) Heart rate 68 /min 68 /min eCW1 ([facility]) Body mass index (BMI) [Ratio] 278.96 kg/m2 278. 96 kg/m2 eCW1 ([facility]) Body height 70 [in_us] 70 [in_us] [facility] Body weight Measured 1944.4 [lb_av] 1944.4 [lb_ av] eCW1 ([facility]) Diastolic blood pressure 70 mm[Hg] 70 mm[Hg] eCW1 ([facility]) Systolic blood pressure 130 mm[Hg] 130 mm[Hg] e CW1 ([facility]) Body temperature 98.1 [degF] 98.1 [degF] eCW1 ( [facility]) Respiratory rate 18 /min 18 /min eCW1 ([facility]) Heart rate 68 /min 68 /min eCW1 ([facility]) Body mass index (BMI) [Ratio] 27.57 kg/m2 27.57 kg/m2 eCW1 ([facility]) Body height 70 [in_us] 70 [in_us] [facility]CW1 [facility] Body weight Measured 192.2 [lb_av] 192.2 [lb_av ] eCW1 ([facility]) Body weight 87.545 kg 87.545 kg [facility] Body mass index (BMI) [Ratio] 27.7 kg/m2 27.7 k g/m2 MEDENT ([facility]) Heart rate 74 /min 74 /min MEDENT ([facility]) Diastolic blood pressure 83 mm[Hg] 83 mm[Hg] MEDENT ([facility]) Systolic blood pressure 140 mm[Hg] 140 mm[Hg] M EDENT ([facility]) Body weight 193.00 [lb_av] 193.00 [lb_av] MEDEN T ([facility]) Body height 70 [in_i] 70 [in_i] [facility] ([facility]) 5'10"
--- NOTE | 2020-09-25 12:50 | ROOR ---
Patient Name: Cali Caicedo Procedure Date: 09/25/2020 12:34 PM Date of : 1950 Age: 70 Room: [facility] Gender: Male Note Status: Finalized Procedure: Upper GI endoscopy Indications: Cirrhosis rule out esophageal varices Providers: Jose Castro MD Referring MD: Devon Jacques MD Requesting Provider: Medicines: Monitored Anesthesia Care Complications: No immediate complications. Procedure: Pre-Anesthesia Assessment: - The heart rate, respiratory rate, oxygen saturations, blood pressure, adequacy of pulmonary ventilation, and response to care were monitored throughout the procedure. The Endoscope was introduced through the mouth, and advanced to the second part of duodenum. The upper GI endoscopy was accomplished without difficulty. The patient tolerated the procedure well. Findings: The Z-line was regular and was found 40 cm from the incisors. Grade I varices were found in the lower third of the esophagus. They were small in size. No other significant abnormalities were identified in a careful examination of the stomach. The exam of the duodenum was otherwise normal. Impression: - Z-line regular, 40 cm from the incisors. - Grade I esophageal varices. - No specimens collected. - The examination was otherwise normal. Recommendation: - Patient has a contact number available for emergencies. The signs and symptoms of potential delayed complications were discussed with the patient. Return to normal activities tomorrow. Written discharge instructions were provided to the patient. - High fiber diet. - Discharge patient to home. - Continue present medications. - Return to referring physician. - The findings and recommendations were discussed with the patient. - Repeat upper endoscopy in 1 year for surveillance. Procedure Code(s): --- Professional --- 17527, Esophagogastroduodenoscopy, flexible, transoral; diagnostic, including collection of specimen(s) by brushing or washing, when performed (separate procedure) Diagnosis Code(s): --- Professional --- K74.60, Unspecified cirrhosis of liver I85.10, Secondary esophageal varices without bleeding CPT copyright 2019 [employer]. All rights reserved. The codes documented in this report are preliminary and upon information resource consultant review may be revised to meet current compliance requirements. Jose Castro MD Jose Castro MD 09/25/2020 12:49:53 PM Electronically signed by Jose Castro MD Number of Addenda: 0 Note Initiated On: 09/25/2020 12:34 PM Estimated Blood Loss: Estimated blood loss: none.
[2020-09-25 13:15] VITALS: BP 131/69
== END 2020-09-25 13:30 | disposition home or self-care (01) ==
LOC: M OPP 10:52
PROVIDERS: ATTEND Internal Medicine Gastroenterology
DX: K74.60 Unspecified cirrhosis of liver (principal); I85.10 Secondary esophageal varices without bleeding; I10 Essential (primary) hypertension; E78.5 Hyperlipidemia, unspecified; K75.9 Inflammatory liver disease, unspecified; R12 Heartburn; M19.90 Unspecified osteoarthritis, unspecified site; F41.9 Anxiety disorder, unspecified; F32.9 Major depressive disorder, single episode, unspecified; Z91.018 Allergy to other foods; Z79.899 Other long term (current) drug therapy

== ENCOUNTER → 2020-10-03 | Outpatient (CLI) | payer MEDICARE ==
[~2020-10-03] MED LIST changes: -LIDOCAINE 2% 100MG/5ML SDV (FOR ANES.) As Ordered ONE; -NS 1,000 ML IV ONE; -propofoL 200 MG/20 ML VIAL As Ordered ONE
--- NOTE | 2020-10-03 09:51 | REP ---
INDICATION: CIRRHOSIS COMPARISON: 10/04/2019 TECHNIQUE: Real time agee scale and color B-mode ultrasound examination using curved array transducer along with color Doppler evaluation of the portal vein. FINDINGS: Liver demonstrates heterogeneous coarsened echotexture along with mild increased echogenicity suggesting hepatocellular disease and hepatosteatosis. No focal hepatic lesion identified. The main portal vein is dilated at 18.4 mm diameter but demonstrates normal flow direction and velocity at 16.3 cm/sec. Pancreas is incompletely evaluated due to interposed bowel gas but visualized portions appear normal. Gallbladder demonstrates mobile gallstones without wall thickening or pericholecystic fluid. No biliary ductal dilatation is appreciated and the common bile duct measures 3.9 mm diameter. The right kidney is normal in reniform shape without hydronephrosis and measures 11.8 x 6.0 x 4.6 cm. No ascites. IMPRESSION: 1. Findings consistent with hepatocellular disease and hepatosteatosis. No focal hepatic lesion identified. Mildly dilated main portal vein. 2. Cholelithiasis. <Electronically signed by Jason Keyes > 10/03/20 [id number]
== END ==
LOC: M RAD 08:50
PROVIDERS: ATTEND Internal Medicine Gastroenterology
DX: K74.60 Unspecified cirrhosis of liver (principal); K76.0 Fatty (change of) liver, not elsewhere classified; K80.20 Calculus of gallbladder without cholecystitis without obstruction

== ENCOUNTER → 2020-11-11 | Outpatient (CLI) | payer MEDICARE | LOC: M RAD 07:07 | PROVIDERS: ATTEND Internal Medicine Gastroenterology | DX: Z53.21 Procedure and treatment not carried out due to patient leaving prior to being seen by health care provider (principal) ==

== ENCOUNTER → 2021-01-06 | Outpatient (CLI) | payer MEDICARE ==
--- NOTE | 2021-01-06 16:12 | REP ---
INDICATION: PAIN. COMPARISON: 04/17/2019. TECHNIQUE: Two views right hip. FINDINGS: There is no acute fracture or dislocation. Moderate joint space narrowing is again noted with associated subchondral sclerosis and spurring. There are diffuse vascular calcifications in the medial soft tissues. IMPRESSION: Stable moderate arthritic changes. <Electronically signed by Brien Kam > 01/06/21 [id number]
== END ==
LOC: M WUC 15:53
PROVIDERS: ATTEND Physician Assistant Medical
DX: M16.11 Unilateral primary osteoarthritis, right hip (principal)

== ENCOUNTER → 2021-07-02 | Outpatient (CLI) | payer MEDICARE ==
[~2021-07-02] MED LIST changes: +OMEP40CA4 PO; -OMEP40CA97 PO
--- NOTE | 2021-07-02 10:27 | REP ---
INDICATION: CIRRHOSIS. COMPARISON: 10/03/2020. TECHNIQUE: Real-time sonographic evaluation of right upper quadrant performed. FINDINGS: There is a 2.4 cm gallstone in the gallbladder. There is no gallbladder wall thickening or pericholecystic fluid.. There is no intrahepatic or extrahepatic biliary dilatation, common bile duct measures 3 mm in maximum diameter. The liver has a cirrhotic appearance with no gross mass. The main portal vein is dilated compatible with portal hypertension, measuring 20 mm in diameter. The visualized pancreas is grossly unremarkable, not well seen due to overlying bowel gas. The right kidney demonstrates no hydronephrosis, with a normal size of 12.5 cm in length. There is trace perihepatic fluid. IMPRESSION: Cirrhotic liver with no gross mass. Dilated main portal vein compatible with portal hypertension. Trace perihepatic fluid. There is a 2.4 cm gallstone in the gallbladder without evidence of biliary dilatation. No evidence of significant change compared to the prior study. <Electronically signed by Brien Kam > 07/02/21 1024
== END ==
LOC: M RAD 09:05
PROVIDERS: ATTEND Internal Medicine Gastroenterology
DX: K74.60 Unspecified cirrhosis of liver (principal); K80.20 Calculus of gallbladder without cholecystitis without obstruction

== ENCOUNTER → 2021-08-23 | Outpatient (REF) | LOC: M LABSMTC 09:37 | PROVIDERS: ATTEND Pediatrics | DX: Z20.822 Contact with and (suspected) exposure to COVID-19 (principal) ==

== ENCOUNTER → 2021-09-09 | Outpatient (REF) | payer MEDICARE | LOC: M LAB REF 16:11 | PROVIDERS: ATTEND Family Medicine | DX: K74.60 Unspecified cirrhosis of liver (principal); D69.6 Thrombocytopenia, unspecified; D72.819 Decreased white blood cell count, unspecified ==

== ENCOUNTER → 2021-09-24 | Outpatient (CLI) | payer MEDICARE ==
[2021-09-24 16:51] LABS: VITAMIN B12 LEVEL 464 PG/ML
[2021-09-24 16:52] LABS: FOLATE > 24.0 NG/ML
== END ==
LOC: M PLALAB 11:03
PROVIDERS: ATTEND Psychiatry & Neurology Neurology
DX: R25.1 Tremor, unspecified (principal); E03.9 Hypothyroidism, unspecified; D51.9 Vitamin B12 deficiency anemia, unspecified

== ENCOUNTER → 2021-12-25 | Outpatient (REF) | payer MEDICARE | LOC: M SFHCDERM 14:14 | PROVIDERS: ATTEND Nurse Practitioner Family | DX: L82.1 Other seborrheic keratosis (principal) ==

== ENCOUNTER → 2022-01-28 | Outpatient (CLI) | payer MEDICARE | LOC: M RAD 09:05 | PROVIDERS: ATTEND Internal Medicine Gastroenterology | DX: K74.60 Unspecified cirrhosis of liver (principal); K80.20 Calculus of gallbladder without cholecystitis without obstruction ==

== ENCOUNTER → 2022-02-16 | Outpatient (REF) | payer MEDICARE ==
[~2022-02-16] MED LIST changes: +CARB25TA9; +PROP10TA56
== END ==
LOC: M LAB REF 12:02
PROVIDERS: ATTEND Family Medicine
DX: K74.60 Unspecified cirrhosis of liver (principal)

== ENCOUNTER → 2022-04-12 | Outpatient (CLI) | payer MEDICARE ==
[~2022-04-12] MED LIST changes: -CARB25TA9; +CARB25TA9 PO
== END ==
LOC: M LABSMTC 10:16
PROVIDERS: ATTEND Anesthesiology
DX: Z01.812 Encounter for preprocedural laboratory examination (principal); Z20.822 Contact with and (suspected) exposure to COVID-19

== ENCOUNTER 2022-04-15 13:09 | Day surgery (SDC) | payer MEDICARE ==
[~2022-04-15] VITALS: Ht 177.8 cm; Wt 87.7 kg
[~2022-04-15 13:09] MED LIST changes: +NS 1,000 ML IV ONE
[2022-04-15] MEDS ORDERED: propofoL 500 MG/50 ML VIAL As Ordered ONE (15:47)
[2022-04-15 16:35] VITALS: BP 153/87
== END 2022-04-15 16:48 | disposition home or self-care (01) ==
LOC: M OPP 13:09
PROVIDERS: ATTEND Internal Medicine Gastroenterology
DX: Z12.11 Encounter for screening for malignant neoplasm of colon (principal); Z80.0 Family history of malignant neoplasm of digestive organs; Z86.010 Personal history of colon polyps; K74.60 Unspecified cirrhosis of liver; K64.0 First degree hemorrhoids; K57.30 Diverticulosis of large intestine without perforation or abscess without bleeding; I85.10 Secondary esophageal varices without bleeding; K76.6 Portal hypertension; K31.89 Other diseases of stomach and duodenum; I10 Essential (primary) hypertension; R78.5 Finding of other psychotropic drug in blood; K21.9 Gastro-esophageal reflux disease without esophagitis; M19.90 Unspecified osteoarthritis, unspecified site; N40.0 Benign prostatic hyperplasia without lower urinary tract symptoms; Z91.018 Allergy to other foods; Z79.899 Other long term (current) drug therapy
CPT/HCPCS: 43235; G0105

== ENCOUNTER → 2022-07-22 | Outpatient (REF) | payer MEDICARE ==
[~2022-07-22] MED LIST changes: -NS 1,000 ML IV ONE
== END ==
LOC: M LAB REF 12:24
PROVIDERS: ATTEND Family Medicine
DX: K74.60 Unspecified cirrhosis of liver (principal)

== ENCOUNTER → 2022-08-27 | Outpatient (CLI) | payer MEDICARE | LOC: M RAD 07:54 | PROVIDERS: ATTEND Internal Medicine Hematology & Oncology | DX: K80.20 Calculus of gallbladder without cholecystitis without obstruction (principal); R16.1 Splenomegaly, not elsewhere classified; D61.818 Other pancytopenia ==

== ENCOUNTER → 2022-12-21 | Outpatient (REF) | payer MEDICARE | LOC: M LAB REF 12:17 | PROVIDERS: ATTEND Family Medicine | DX: K74.60 Unspecified cirrhosis of liver (principal) ==

== ENCOUNTER → 2023-03-22 | Outpatient (CLI) | payer MEDICARE ==
[~2023-03-22] MED LIST changes: +FINA-48 PO; -PROS5TAB PO
== END ==
LOC: M RAD 06:55
PROVIDERS: ATTEND Internal Medicine Gastroenterology
DX: K76.0 Fatty (change of) liver, not elsewhere classified (principal); K80.20 Calculus of gallbladder without cholecystitis without obstruction

== ENCOUNTER → 2023-05-28 | Outpatient (REF) | payer MEDICARE ==
[2023-05-28 12:45] LABS: FOLATE 23.1 NG/ML (>5.4)
[2023-05-28 15:16] LABS: ATYPICAL LYMPH 8 % (0-5); BASOPHILS 2 % (0-1); EOSINOPHILS 1 % (0-3); LYMPHOCYTES 36 % (16-44); MONOCYTES 2 % (0-5); NEUTROPHILS 50 % (28-66)
[2023-05-28 15:17] LABS: PLATELET ESTIMATE DECREASED (NORMAL)
== END ==
LOC: M LAB REF 11:40
PROVIDERS: ATTEND Family Medicine
DX: K74.60 Unspecified cirrhosis of liver (principal); D69.6 Thrombocytopenia, unspecified; D72.819 Decreased white blood cell count, unspecified

== ENCOUNTER 2023-08-25 10:21 | Day surgery (SDC) | payer MEDICARE ==
[~2023-08-25] VITALS: Ht 177.8 cm; Wt 85.3 kg
[~2023-08-25 10:21] MED LIST changes: +LIDOCAINE 2% 100MG/5ML SDV (FOR ANES.) As Ordered ONE; +NS 1,000 ML IV ONE; +propofoL 200 MG/20 ML VIAL As Ordered ONE
[2023-08-25 12:45] VITALS: BP 134/63; O2SAT 97
== END 2023-08-25 12:44 | disposition home or self-care (01) ==
LOC: M OPP 10:21
PROVIDERS: ATTEND Internal Medicine Gastroenterology
DX: K74.60 Unspecified cirrhosis of liver (principal); I85.10 Secondary esophageal varices without bleeding; Z87.891 Personal history of nicotine dependence; Z79.02 Long term (current) use of antithrombotics/antiplatelets; Z79.1 Long term (current) use of non-steroidal anti-inflammatories (NSAID); Z79.83 Long term (current) use of bisphosphonates; Z79.899 Other long term (current) drug therapy; Z91.018 Allergy to other foods

== ENCOUNTER → 2023-09-21 | Outpatient (REF) | payer MEDICARE ==
[~2023-09-21] MED LIST changes: -LIDOCAINE 2% 100MG/5ML SDV (FOR ANES.) As Ordered ONE; -NS 1,000 ML IV ONE; -propofoL 200 MG/20 ML VIAL As Ordered ONE
== END ==
LOC: M LAB REF 10:26
PROVIDERS: ATTEND Family Medicine
DX: R53.83 Other fatigue (principal); K74.60 Unspecified cirrhosis of liver

== ENCOUNTER → 2023-09-23 | Outpatient (REF) | payer MEDICARE ==
[2023-09-23 12:45] LABS: HEMATOCRIT 26.5 % (42.0-52.0); MEAN CORPUSCULAR HEMOGLOBIN 32.4 pg (27.0-33.0); MEAN CORPUSCULAR HGB CONC 30.2 g/dl (32.0-36.5); MEAN CORPUSCULAR VOLUME 107.3 fl (80.0-96.0); RED BLOOD COUNT 2.47 10^6/uL (4.30-6.10); WHITE BLOOD COUNT 1.7 10^3/uL (4.0-10.0)
[2023-09-23 12:54] LABS: INR 1.18; PROTHROMBIN TIME 14.7 SECONDS (12.5-14.5)
[2023-09-23 13:09] LABS: FERRITIN 52.3 NG/ML (10.5-307.3); FOLATE 20.8 NG/ML (>5.4)
[2023-09-23 13:27] LABS: ATYPICAL LYMPH 6 % (0-5); EOSINOPHILS 4 % (0-3); LYMPHOCYTES 37 % (16-44); MONOCYTES 4 % (0-5); NEUTROPHILS 45 % (28-66)
[2023-09-23 13:28] LABS: ANISOCYTOSIS 2+
[2023-09-23 13:29] LABS: HYPOCHROMASIA 2+
[2023-09-23 13:30] LABS: GIANT PLATELETS 1+; PLATELET ESTIMATE MARKED DECREASE (NORMAL)
[2023-09-23 13:39] LABS: PLATELET COUNT, AUTOMATED 23 10^3/uL (150-450)
== END ==
LOC: M LAB REF 12:12
PROVIDERS: ATTEND Family Medicine
DX: D64.9 Anemia, unspecified (principal); K74.60 Unspecified cirrhosis of liver; D61.818 Other pancytopenia

== ENCOUNTER → 2023-09-30 | Outpatient (CLI) | payer MEDICARE | LOC: M PLAIMG 11:16 | PROVIDERS: ATTEND Family Medicine | DX: R53.83 Other fatigue (principal) ==

== ENCOUNTER 2023-10-06 16:55 | Observation (INO) | payer MEDICARE ==
[~2023-10-06] VITALS: Ht 177.8 cm; Wt 87.2 kg
[2023-10-06 18:00] VITALS: BP 141/74; TEMP 97.7; O2SAT 98
[2023-10-06 18:41] LABS: MEAN CORPUSCULAR HGB CONC 31.1 g/dl (32.0-36.5); MEAN CORPUSCULAR VOLUME 106.1 fl (80.0-96.0); RED BLOOD COUNT 1.79 10^6/uL (4.30-6.10)
[2023-10-06 18:43] LABS: HEMOGLOBIN 5.9 g/dl (13.5-17.5); PLATELET COUNT, AUTOMATED 20 10^3/uL (150-450)
[2023-10-06 19:17] LABS: ATYPICAL LYMPH 2 % (0-5); EOSINOPHILS 5 % (0-3); LYMPHOCYTES 25 % (16-44); MONOCYTES 7 % (0-5); NEUTROPHILS 60 % (28-66); PLATELET ESTIMATE DECREASED (NORMAL)
[2023-10-06 19:18] LABS: ANISOCYTOSIS 2+
[2023-10-06 19:19] LABS: CPK CREATINE PHOSPHOKINASE 22 U/L (46-171); HYPOCHROMASIA 1+
[2023-10-06 19:20] LABS: ALBUMIN 2.9 G/DL (3.2-5.2); ALKALINE PHOSPHATASE 93 U/L (46-116); ALT/SGPT < 9 U/L (7.0-40); AST/SGOT 20 U/L (<34); BILIRUBIN,TOTAL 0.8 MG/DL (0.3-1.2); BLOOD UREA NITROGEN 12 MG/DL (9-23); CALCIUM LEVEL 8.3 MG/DL (8.3-10.6); CARBON DIOXIDE LEVEL 28 MMOL/L (20-31); CHLORIDE LEVEL 101 MMOL/L (98-107); CK-MB VALUE MASS < 1.0 NG/ML (<3.6); CREATININE FOR GFR 0.71 MG/DL (0.70-1.30); GLOMERULAR FILTRATION RATE > 60.0 (>42); GLUCOSE, FASTING 104 MG/DL (74-106); IRON (FE) 54 UG/DL (65-175); MAGNESIUM LEVEL 1.8 MG/DL (1.8-2.4); MB/CK RELATIVE INDEX 4.54 (< OR =4); PERCENT SATURATION 18.4 % (19.7-50.0); POTASSIUM SERUM 3.6 MMOL/L (3.5-5.1); SODIUM LEVEL 132 MMOL/L (136-145); TOTAL IRON BINDING CAPACITY 294 UG/DL (250-425); TOTAL PROTEIN 7.3 G/DL (5.7-8.2)
[2023-10-06 19:21] LABS: FERRITIN 50.2 NG/ML (10.5-307.3); POLYCHROMASIA 2+
[2023-10-06 19:22] LABS: FOLATE 20.32 NG/ML (>5.4); VITAMIN B12 LEVEL 628 PG/ML (211-911)
[2023-10-06 20:52] VITALS: BP 120/53; TEMP 98.6; O2SAT 96
[2023-10-06 23:45] VITALS: BP 131/63; TEMP 98.1; O2SAT 92
[2023-10-07] VITALS (11 sets, daily range): BP systolic 126–153; BP diastolic 53–79; TEMP 97.9–98.6; O2SAT 90–96
[2023-10-07] MEDS ORDERED: PROP10TA56 PO (01:03)
[2023-10-07] MEDS ORDERED: ATOR1TAB19 PO (01:03)
[2023-10-07] MEDS ORDERED: HOME MED LIST COMPLETE! XX SCH (01:40)
[2023-10-07 05:30] LABS: EOS % 2.5 % (0.0-3.0); HEMATOCRIT 25.7 % (42.0-52.0); HEMOGLOBIN 8.3 g/dl (13.5-17.5); LYMPH # 0.4 10^3/uL (1.5-5.0); LYMPH % 32.8 % (24.0-44.0); MEAN CORPUSCULAR HEMOGLOBIN 31.9 pg (27.0-33.0); MEAN CORPUSCULAR HGB CONC 32.3 g/dl (32.0-36.5); MEAN CORPUSCULAR VOLUME 98.8 fl (80.0-96.0); MONO # 0.1 10^3/uL (0.0-0.8); MONO % 5.9 % (2.0-8.0); NEUTROPHILS # 0.7 10^3/uL (1.5-8.5); NEUTROPHILS % 55.4 % (36.0-66.0); WHITE BLOOD COUNT 1.2 10^3/uL (4.0-10.0)
[2023-10-07 05:31] LABS: PLATELET COUNT, AUTOMATED 17 10^3/uL (150-450)
[2023-10-07 05:44] LABS: BLOOD UREA NITROGEN 9 MG/DL (9-23); CALCIUM LEVEL 7.9 MG/DL (8.3-10.6); CARBON DIOXIDE LEVEL 29 MMOL/L (20-31); CHLORIDE LEVEL 104 MMOL/L (98-107); CREATININE FOR GFR 0.65 MG/DL (0.70-1.30); GLOMERULAR FILTRATION RATE > 60.0 (>42); GLUCOSE, FASTING 113 MG/DL (74-106); MAGNESIUM LEVEL 1.7 MG/DL (1.8-2.4); PHOSPHORUS LEVEL 3.1 MG/DL (2.4-5.1); POTASSIUM SERUM 3.7 MMOL/L (3.5-5.1); SODIUM LEVEL 138 MMOL/L (136-145)
[2023-10-07] MEDS ORDERED: ACETAMINOPHEN 500 MG TAB PO PRN (07:15)
[2023-10-07] MEDS: OMEPRAZOLE 20MG CAP PO SCH (08:30)
[2023-10-07] MEDS: SINEMET 25-100 MG TAB PO SCH (08:31)
[2023-10-07] MEDS: MAG SULF 1GM/100ML (MAG RUN) 1 GM in IV 1 EA IV SCH (08:33)
[2023-10-07] MEDS: PROPRANOLOL 10 MG TAB PO SCH (09:36)
[2023-10-07] MEDS ORDERED: LIDOCAINE 1% MDV 20ML VIAL As Ordered ONE (12:22)
[2023-10-07] MEDS ORDERED: PILL CUTTER 1 EACH XX PRN (14:20)
[2023-10-07] MEDS: ATORVASTATIN 10 MG TAB PO SCH (20:00)
[2023-10-07] MEDS: PARoxetine 20MG TABLET PO SCH (20:00)
[2023-10-07] MEDS: amLODIPine 5 MG TAB PO SCH (20:01)
[2023-10-07] MEDS: FINASTERIDE 5MG TAB PO SCH (20:01)
[2023-10-08 06:17] VITALS: BP 139/70; TEMP 97.7; O2SAT 93
[2023-10-08 06:48] LABS: HEMATOCRIT 27.8 % (42.0-52.0); MEAN CORPUSCULAR HGB CONC 32.4 g/dl (32.0-36.5); MEAN CORPUSCULAR VOLUME 98.9 fl (80.0-96.0); RED BLOOD COUNT 2.81 10^6/uL (4.30-6.10); WHITE BLOOD COUNT 1.4 10^3/uL (4.0-10.0)
[2023-10-08 06:54] LABS: PLATELET COUNT, AUTOMATED 20 10^3/uL (150-450)
[2023-10-08 07:08] LABS: BLOOD UREA NITROGEN 9 MG/DL (9-23); CARBON DIOXIDE LEVEL 28 MMOL/L (20-31); CHLORIDE LEVEL 102 MMOL/L (98-107); CREATININE FOR GFR 0.62 MG/DL (0.70-1.30); GLOMERULAR FILTRATION RATE > 60.0 (>42); GLUCOSE, FASTING 107 MG/DL (74-106); MAGNESIUM LEVEL 2.1 MG/DL (1.8-2.4); PHOSPHORUS LEVEL 3.3 MG/DL (2.4-5.1); POTASSIUM SERUM 3.5 MMOL/L (3.5-5.1); SODIUM LEVEL 134 MMOL/L (136-145)
[2023-10-08] MEDS ORDERED: DOCU100C16 PO (08:23)
[2023-10-08] MEDS ORDERED: FERR325T3 PO (08:23)
[2023-10-08 09:24] VITALS: BP 134/69
[2023-11-22] MEDS ORDERED: LASI20TA3 PO (14:45)
== END 2023-10-08 11:10 | disposition home or self-care (01) ==
LOC: M MS5PR 17:42
PROVIDERS: ADMIT General Practice; ATTEND Internal Medicine
DX: D61.818 Other pancytopenia (principal); K74.60 Unspecified cirrhosis of liver; Z79.899 Other long term (current) drug therapy; Z91.018 Allergy to other foods; G20.C Parkinsonism, unspecified; I10 Essential (primary) hypertension; F12.10 Cannabis abuse, uncomplicated
CPT/HCPCS: 36415; 36430; 38220; 71046; 77012; 80048; 80053; 80503; 82270; 82550; 82553; 82607; 82728; 82746; 83520; 83550; 83735; 84100; 84484; 85025; 85027; 85046; 85049; 85055; 86850; 86900; 86901; 86920; 87486; 87581; 87633; 87798; 88300; 88305; 88311; 88313; 93005; 93306; 96361; 97161; 97165; 97530; G0378; G0463; J3475; P9016

== ENCOUNTER → 2023-10-13 | Outpatient (REF) | payer MEDICARE ==
[~2023-10-13] MED LIST changes: +ATOR1TAB19 PO; +DOCU100C16 PO; +FERR325T3 PO; +PROP10TA56 PO
[2023-10-13 18:31] LABS: ATYPICAL LYMPH 6 % (0-5); EOSINOPHILS 3 % (0-3); LYMPHOCYTES 29 % (16-44); MONOCYTES 2 % (0-5); MYELOCYTES 1 % (0-0); NEUTROPHILS 58 % (28-66); PLATELET ESTIMATE DECREASED (NORMAL)
== END ==
LOC: M LAB REF 16:50
PROVIDERS: ATTEND Nurse Practitioner Family
DX: D61.818 Other pancytopenia (principal)

== ENCOUNTER 2023-10-21 10:49 | Outpatient (CLI) | payer MEDICARE ==
[~2023-10-21] VITALS: Ht 177.8 cm; Wt 86.8 kg
[2023-10-21] MEDS: ACETAMINOPHEN TAB 650MG DOSE (2X325MG) PO ONE (11:07)
[2023-10-21] MEDS: diphenhydrAMINE 25MG CAP PO ONE (11:07)
[2023-10-21] MEDS: NS 250 ML IV ONE (11:07)
[2023-10-21 11:12] VITALS: BP 130/60; O2SAT 97
[2023-10-21 11:35] VITALS: BP 113/57; O2SAT 97
[2023-10-21 12:35] VITALS: BP 122/59; O2SAT 97
[2023-10-21 12:51] VITALS: BP 124/58; TEMP 98; O2SAT 98
[2023-10-21 14:30] VITALS: BP 152/70; TEMP 98; O2SAT 98
== END 2023-10-21 14:50 ==
LOC: M INFU 10:49
PROVIDERS: ATTEND Internal Medicine Hematology & Oncology
DX: D46.9 Myelodysplastic syndrome, unspecified (principal)
CPT/HCPCS: 36430; P9016

== ENCOUNTER → 2023-11-19 | Outpatient (CLI) | payer MEDICARE ==
[~2023-11-19] MED LIST changes: +LASI20TA3 PO
== END ==
LOC: M RAD 09:42
PROVIDERS: ATTEND Family Medicine
DX: R91.8 Other nonspecific abnormal finding of lung field (principal); R05.9 Cough, unspecified